=== PATIENT | female | born 1940 | race Caucasian/White ===

== ENCOUNTER → 2016-11-11 | Outpatient (CLI) | payer OTHER, MEDICARE | LOC: FIMAGING 11:51 | PROVIDERS: ATTEND Physician Assistant | DX: M51.34 Other intervertebral disc degeneration, thoracic region (principal); S23.120A Subluxation of T2/T3 thoracic vertebra, initial encounter; Z98.1 Arthrodesis status ==

== ENCOUNTER 2017-06-10 10:43 | Inpatient (IN) | payer OTHER, MEDICARE ==
--- NOTE | 2017-06-10 12:28 | EDPHY ---
H & P Time Seen by Provider: 06/10/17 12:11 HPI/ROS: CHIEF COMPLAINT: Left hip pain HISTORY OF PRESENT ILLNESS: The patient is a 76-year-old female with a history of joint disease who presents emergency department with left hip pain. Patient states she has had her right hip replaced twice. She has had numerous neck and back spinal surgeries. She states that yesterday she noticed some discomfort when she was ambulating in her left hip. This morning when she had a for bed she tried to stand using her walker and felt as though "too bones were rubbing on each other. "She complains of left hip pain with movement. It improves at rest. It is moderate. She denies any fevers or chills. No numbness or tingling. No recent trauma or fall. Patient denies any other symptoms. She has no current back pain. No chest pain or shortness of breath. No abdominal pain, nausea, vomiting. No dysuria or frequency. REVIEW OF SYSTEMS: My complete review of systems is negative except as mentioned in the HPI. Past Medical/Surgical History: Includes breast cancer Past surgical history: Includes right hip replacement x2, multiple neck and back surgeries, cranial shunt, lumpectomy, appendectomy, tonsillectomy Social history: Patient does not smoke Smoking Status: Never smoked Physical Exam: Vitals noted. 37.1, 171/86, 104, 18, 94% on room air GENERAL: Well-appearing, in no acute distress, alert. HEENT: Eyes normal to inspection, normal pharynx, no signs of dehydration. NECK: No thyromegaly, no lymphadenopathy, supple. RESPIRATORY: Clear to auscultation bilaterally, no rales, rhonchi or wheezing. CVS: Regular rate and rhythm, no rubs, murmurs, or gallops. ABDOMEN: Soft, nontender, nondistended, no organomegaly. BACK: Normal to inspection, no CVA tenderness. SKIN: Normal color, no rash, warm, dry. No pallor. EXTREMITIES: Patient's left hip appears normal. There is no deformity. She has mild tenderness to palpation over the left hip. No crepitus. Patient has range of motion of her left hip. No discomfort with passive movement. No redness or rash. Neurovascular intact distally. Her right lower extremity is normal. NEURO/PSYCH: Alert and oriented x3, normal mood and affect, normal motor sensory exam. No obvious cranial nerve deficit. Constitutional: Initial Vital Signs Temperature (C) 37.1 C 06/10/17 11:11 Heart Rate 104 H 06/10/17 11:11 Respiratory Rate 18 06/10/17 11:11 Blood Pressure 171/86 H 06/10/17 11:11 O2 Sat (%) 94 06/10/17 11:11 O2 Delivery Mode Room Air Allergies/Adverse Reactions: ibuprofen [Ibuprofen] Allergy (Intermediate, Verified 11/20/09 19:36) MILD SWELLING OF HANDS FEET FACE BEE STINGS Allergy (Severe, Uncoded 11/20/09 19:35) Anaphylaxis Home Medications: Medication Instructions Recorded Acetaminophen/Codeine 300/30Mg 1 each PO Q6 PRN 09/15/15 [Tylenol #3 (*)] Omeprazole/Clarith/Amoxicillin 1 each PO BID 09/15/15 [Omeclamox-Champ Combo Pack] Thyroid [[place] Thyroid 60 MG (*)] 60 mg PO DAILY10 09/15/15 Triazolam [TRIAZOLAM] 0.125 - 2.5 mg PO HS PRN 09/15/15 oxyCODONE CR [Oxycontin] 10 mg PO BID #20 tab 09/16/15 Medical Decision Making - Diagnostics Imaging Results: Imaging Impressions Hip X-Ray 06/10/17 12:29 Impression: 1. No acute fracture dislocation. 2. Severe left hip osteoarthritis with bone articulating with bone. ED Course/Re-evaluation: In the emergency department I discussed possible etiologies with the patient and answered all her questions. IV was placed. Patient was given normal saline 500 mL IV for dehydration. Basic laboratory studies were ordered. An x- ray of the left hip was ordered. The patient has a mildly elevated white count of 12. Patient's chemistry panel is notable for a slightly low sodium of 130. This is comparable with her previous values. Potassium is mildly low at 3.4. Patient's renal function is normal. UA negative. Hip x-ray: Degenerative disease. No fracture dislocation. I discussed the result with the patient. I answered all her questions. She states she has an outpatient MRI ordered by Dr. Patel. I recommended that she continue with the plan to have this MRI completed. She has a walker the emergency department. She ambulated prior to leaving. She will weight bear as tolerated. She was given warnings prior to leaving. Differential Diagnosis: My differential includes but is not limited to fracture, dislocation, septic joint, osteoarthritis, urinary tract infection, electrolyte abnormality, sugar abnormality, dehydration - Data Points Laboratory Results: Laboratory Results 06/10/17 12:46 06/10/17 12:46 06/10/17 06/10/17 06/10/17 13:20 12:46 12:46 WBC 12.29 10^3/uL H 10^3/uL (3.80-9.50) RBC 4.30 10^6/uL 10^6/uL (4.18-5.33) Hgb 12.6 g/dL g/dL (12.6-16.3) Hct 36.1 % L % (38.0-47.0) MCV 84.0 fL fL (81.5-99.8) MCH 29.3 pg pg (27.9-34.1) MCHC 34.9 g/dL g/dL (32.4-36.7) RDW 15.8 % H % (11.5-15.2) Plt Count 374 10^3/uL 10^3/uL (150-400) MPV 9.0 fL fL (8.7-11.7) Neut % (Auto) 77.0 % H % (39.3-74.2) Lymph % (Auto) 14.7 % L % (15.0-45.0) Whiteside % (Auto) 6.1 % % (4.5-13.0) Eos % (Auto) 1.5 % % (0.6-7.6) Baso % (Auto) 0.2 % L % (0.3-1.7) Nucleat RBC Rel Count 0.0 % % (0.0-0.2) Absolute Neuts (auto) 9.46 10^3/uL H 10^3/uL (1.70-6.50) Absolute Lymphs (auto) 1.81 10^3/uL 10^3/uL (1.00-3.00) Absolute Monos (auto) 0.75 10^3/uL 10^3/uL (0.30-0.80) Absolute Eos (auto) 0.18 10^3/uL 10^3/uL (0.03-0.40) Absolute Basos (auto) 0.03 10^3/uL 10^3/uL (0.02-0.10) Absolute Nucleated RBC 0.00 10^3/uL 10^3/uL (0-0.01) Immature Gran % 0.5 % % (0.0-1.1) Immature Gran # 0.06 10^3/uL 10^3/uL (0.00-0.10) Sodium 130 mEq/L L mEq/L (134-144) Potassium 3.4 mEq/L L mEq/L (3.5-5.2) Chloride 90 mEq/L L mEq/L (97-110) Carbon Dioxide 26 mEq/l mEq/l (22-31) Anion Gap 14 mEq/L mEq/L (8-16) BUN 11 mg/dL mg/dL (7-23) Creatinine 0.7 mg/dL mg/dL (0.6-1.0) Estimated GFR > 60 Glucose 103 mg/dL H mg/dL (70-100) Calcium 9.7 mg/dL mg/dL (8.5-10.4) Urine Color PALE YELLOW Urine Appearance CLEAR Urine pH 7.0 (5.0-7.5) Ur Specific [place] 1.005 (1.002-1.030) Urine Protein NEGATIVE (NEGATIVE) Urine Ketones TRACE H (NEGATIVE) Urine Blood NEGATIVE (NEGATIVE) Urine Nitrate NEGATIVE (NEGATIVE) Urine Bilirubin NEGATIVE (NEGATIVE) Urine Urobilinogen NEGATIVE EU EU (0.2-1.0) Ur Leukocyte Esterase NEGATIVE (NEGATIVE) Urine Glucose NEGATIVE (NEGATIVE) Medications Given: Discontinued Medications Sodium Chloride (Ns) 500 mls @ 0 mls/hr IV EDNOW ONE; Wide Open PRN Reason: Protocol Stop: 06/10/17 12:30 Last Admin: 06/10/17 12:47 Dose: 500 mls Oxycodone HCl (Oxycodone Ir) 10 mg PO EDNOW ONE Stop: 06/10/17 12:49 Last Admin: 06/10/17 12:57 Dose: 10 mg Potassium Chloride (Potassium Chloride Oral Liquid) 40 meq PO EDNOW ONE Stop: 06/10/17 13:48 Last Admin: 06/10/17 14:03 Dose: 40 meq Departure - Departure Disposition: Home, Routine, Self-Care Clinical Impression: Left hip pain, Hyponatremia Condition: Good Instructions: Hip Pain (ED) Additional Instructions: Your left hip x-ray showed a degenerated joint. I recommend that you continue with the plan to have an outpatient MRI. Use your walker and weight bear as tolerated. Return with worsening symptoms or concerns. Referrals: Brian Rod MD [Primary Care Provider] - As per Instructions Dre Holloway MD [Medical Doctor] - 5-7 days, call for appt. Vikash Cantu MD [Medical Doctor] - 5-7 days, call for appt.
[2017-06-10] MEDS ORDERED: NS 500 ML IV ONE (12:29)
[2017-06-10] MEDS ORDERED: oxyCODONE IR 5 MG TAB PO ONE (12:48)
[2017-06-10 12:58] LABS: % IMMATURE GRANULYOCYTES 0.5 % (0.0-1.1); ABSOLUTE IMMATURE GRANULOCYTES 0.06 10^3/uL (0.00-0.10); ADD DIFF? NO; ADD MORPH? NO; ADD SCAN? NO; ATYPICAL LYMPHOCYTE FLAG 0 (0-99); FRAGMENT RBC FLAG 10 (0-99); HEMATOCRIT 36.1 % (38.0-47.0); HEMOGLOBIN 12.6 g/dL (12.6-16.3); LEFT SHIFT FLG 0 (0-99); LIPEMIA HEMOLYSIS FLAG 90 (0-99); MEAN CELL HEMOGLOBIN 29.3 pg (27.9-34.1); MEAN CELL HEMOGLOBIN CONCENTR. 34.9 g/dL (32.4-36.7); PLATELET CLUMPS FLAG 0 (0-99); PLATELET COUNT 374 10^3/uL (150-400); RED CELL DISTRIBUTION WIDTH 15.8 % (11.5-15.2)
[2017-06-10 13:19] LABS: ANION GAP 14 mEq/L (8-16); CALCIUM 9.7 mg/dL (8.5-10.4); CARBON DIOXIDE 26 mEq/l (22-31); CHLORIDE 90 mEq/L (97-110); CREATININE 0.7 mg/dL (0.6-1.0); GLOMERULAR FILTRATION RATE > 60; GLUCOSE 103 mg/dL (70-100); POTASSIUM 3.4 mEq/L (3.5-5.2); SODIUM 130 mEq/L (134-144)
[2017-06-10 13:29] LABS: COLOR PALE YELLOW; LEUKOCYTE ESTERASE,URINE NEGATIVE (NEGATIVE); NITRITE,URINE NEGATIVE (NEGATIVE)
[2017-06-10] MEDS ORDERED: POTASSIUM CL 20 MEQ/15 ML UDCUP PO ONE (13:47)
[2017-06-10] MEDS ORDERED: POTASSIUM CL 20 MEQ TAB ONE (13:59)
[2017-06-10] MEDS ORDERED: ONDANSETRON DISINTEGRATING 4 MG TAB PO PRN (15:52)
[2017-06-10] MEDS ORDERED: ACETAMINOPHEN 325 MG TAB PO PRN (15:52)
[2017-06-10] MEDS ORDERED: ONDANSETRON 4 MG/2 ML VIAL IVP PRN (15:52)
[2017-06-10] MEDS ORDERED: NS W/ 20 KCl/L 1,000 ML IV SCH (16:00)
[2017-06-10] MEDS ORDERED: DIAZEPAM 5 MG TAB ONE (16:21)
[2017-06-10] MEDS ORDERED: DIAZEPAM 5 MG TAB PO ONE (16:22)
[2017-06-10] MEDS ORDERED: hydrALAZINE 25 MG TAB PO PRN (16:23)
--- NOTE | 2017-06-10 16:28 | ASMTCASEMG ---
Living Arrangements What is your living Answers: With Spouse arrangement? Who do you live with? Type Of Residence What kind of residence do Answers: House you live in? Type of Residence Facility Name Notes: Patient lives with her Raffi in a ranch home. There are two steps into the garage only. Patient and her board up to 50 horses on their property and have a lot of friend and family support Stairs in Home Answers: No Environment Case Management Evaluation Functional: Able to Answers: Yes Notes: provided pain and return Home with Prior mobility are improved Level of Function/Care after surgery Functional: ADL / IADL Answers: Mobility Issues Performance Deficits Due to: Discharge Plan Comments Coordination Status Comments Notes: I met with patient and her Raffi in the ER. Patient has had many surgeries involving her hips and spine. She would like to return home after surgery with HH care if she is able. She is open to SNF if needed and understands the process for evaluation of HH vs SNF post op. I have provided patient with a senior resource book to explore potential options to consider CM to follow with D/C planning Date Signed: 06/10/2017 04:27 PM Electronically Signed By:Elizabeth Gomez RN
--- NOTE | 2017-06-10 17:06 | GHP ---
[f rep st] HISTORY AND PHYSICAL DATE OF ADMISSION: 06/10/2017 CHIEF COMPLAINT: Hip pain. HISTORY OF PRESENT ILLNESS: The patient is a 76-year-old female with a history of multiple neck and back surgeries, as well as right hip replacement x2, who presents to the emergency department with left hip pain. She has had increasing pain over several months, though today her pain became so severe she was unable to walk. She states she has had a prior right hip replacement, and has also had multiple neck and back surgeries. She is followed by Dr. Damaso Patel from the Neurosurgery service and they have evaluated her in the emergency department. She notes right footdrop, but her main concern is her severe left hip pain. When she tried to stand up today she felt like her bones were rubbing against each other. She has pain with any type of movement. She denies any neuropathic symptoms in her left lower extremity. She denies any numbness, tingling, or paresthesias. She has had no recent falls. She denies any fevers, chills, chest pain, shortness of breath. No focal back pain, abdominal pain, nausea, vomiting, or diarrhea. She has no change in her bowel or bladder habits. In the emergency department, she was evaluated by the Neurosurgery service who will consult Orthopedic service for consideration of a hip replacement. She is admitted to the hospital due to inability to ambulate, and for pain control. PAST MEDICAL HISTORY: 1. Breast cancer. 2. Chronic back pain. 3. Chronic continuous opioid dependence. 4. Multiple spinal surgeries, followed by Dr. Patel. 5. Right hip replacement x3. MEDICATIONS: Please see [id number] for complete outpatient medication list. ALLERGIES: Ibuprofen, she states gives her swelling. FAMILY HISTORY: Parents are . SOCIAL HISTORY: The patient is . Her is at the bedside. She has previously been independent with her activities of daily living, and able to reach max of 4. However, given her increasing hip pain, she has difficulty ambulating and uses a walker or a walking stick for assistance with long distances. She denies tobacco use. She reports occasional alcohol use. REVIEW OF SYSTEMS: A 10-point review of systems was performed and is negative except as per HPI. OBJECTIVE: VITAL SIGNS: Temperature is 36.6, blood pressure 165/90, heart rate 94, respiratory rate 18, she is 95% on room air. GENERAL: Patient is awake, alert, oriented, in no acute distress. HEENT: Head is atraumatic, normocephalic. Pupils equal, round, react to light. Extraocular muscles intact. Oropharynx is clear. Mucous membranes are moist. NECK: Supple. There is no JVD. HEART: Regular rate and rhythm without murmur. LUNGS: Clear to auscultation bilaterally. ABDOMEN: Soft, nondistended, nontender. Normoactive bowel sounds. EXTREMITIES: Without cyanosis, clubbing, or edema. She has severe pain with flexion of her left hip. There is no bruising or deformity noted. She is tender to palpation over the greater trochanter. NEUROLOGIC: Exam is grossly nonfocal. LABORATORY DATA: CBC reveals a white blood cell count of 12.3 with 77% neutrophils. Basic metabolic panel reveals sodium 130, potassium 3.4, chloride 90, bicarb 26, creatinine is normal at 0.7, glucose is 103. Urinalysis is negative. Hip x-ray performed in the emergency department shows no acute fracture, dislocation, however, severe left hip osteoarthritis with bone articulating on bone is seen. ASSESSMENT/PLAN: This is a 76-year-old female with a history of severe degenerative osteoarthritis of left hip, who was admitted to the hospital for pain control and orthopedic evaluation. 1. Severe degenerative osteoarthritis of the left hip. The patient is unable to ambulate. She will be admitted to the hospital for pain control. We will continue her outpatient pain medications including oxycodone and OxyContin. Schedule Tylenol 1000 mg q.8 hours. She denies neuropathic symptoms and declines a trial of gabapentin. Will provide intravenous Dilaudid at low doses as needed for breakthrough pain. The Orthopedic service was consulted by the Neurosurgery service and will see the patient in the morning. Physical Therapy/ Occupational Therapy evaluations are requested. 2. Hypothyroidism. Will continue her [place] Thyroid once her medication reconciliation is completed. 3. Elevated blood pressure. Reviewing her chart, she does not have a history of hypertension. I suspect this is related to pain control. Will provide p.r.n. hydralazine for sustained systolic blood pressures greater than 180. Otherwise, the focus will be controlling her pain. 4. Hyponatremia. Will send a urine sodium and urine osmolarity for further evaluation. This may be hypovolemic hyponatremia. Will start normal saline overnight and reassess in the morning. 5. Hypokalemia. Will replace with potassium in her intravenous fluids and recheck in the morning. 6. Leukocytosis. There is no evidence of infection. I suspect this may be a stress response. Will observe off antibiotics and recheck this in the morning. 7. Deep venous thrombosis prophylaxis. Patient is high risk, will start Lovenox. It does not sound like she will go to surgery tomorrow, but this may need to be held the following day if surgery is planned. 8. Code status. Patient is full code. DISPOSITION: The patient is admitted to inpatient status as required q PT, OT, and IV pain medications for pain control as well as Orthopedic surgery evaluation. /[id number]/MODL MTDD
[2017-06-10] MEDS: ACETAMINOPHEN 500 MG TAB PO SCH (19:40)
[2017-06-10] MEDS ORDERED: CETIRIZINE 10 MG TAB PO PRN (23:13)
[2017-06-11] MEDS: ACETAMINOPHEN 500 MG TAB PO SCH ×3 (00:44→16:24)
[2017-06-11] MEDS: HYDROCODONE/APAP 10/325 TAB PO PRN ×2 (00:45→08:15)
[2017-06-11] MEDS: CYCLOBENZAPRINE 10 MG TAB PO PRN ×3 (00:45→16:23)
--- NOTE | 2017-06-11 02:12 | GCON ---
[f rep st] CONSULTATION CONSULTATION HISTORY AND PHYSICAL CHIEF COMPLAINT: Left hip pain. Left hip weakness. HISTORY OF PRESENT ILLNESS: Karla is a 76-year-old female, who has a history of degenerative joint disease, including multiple cervical and lumbar spine surgeries. She is a patient known to [facility]. She has had prior surgery with Dr. Patel. I spoke with her on Thursday of this week, stating that she was having more difficulty with some left hip pain and some pain down in the thigh. For this reason, I had ordered new imaging, including an MRI of the lumbar and thoracic spine. Per her , she woke up today, she was unable to ambulate and has exquisite left-sided hip pain. Yesterday, she had some discomfort with ambulating with her left hip, but this a.m. it was much worse. She was seen in the emergency department and hip x-rays were obtained, which showed severe osteoarthritis of the left hip. She was unable ambulate. Her contacted our office for us to get involved to see if this was related to her spine. I did see the patient, as well as Dr. Patel in the emergency department in room 3. She has mainly pain in the left buttock/ left hip that increases with range of motion of the hip, itself. It improves with rest. She denies any other complaints, such as headache, neck pain, chest pain, shortness of breath. No abdominal complaints. No complaints. No loss of bowel or bladder control. No saddle numbness or pain. She denies any specific recent trauma, injury, or fall. She does have a history, as mentioned above, of chronic neck and back pain. REVIEW OF SYSTEMS: A complete review of systems noted in conjunction above. Ten points negative, except mentioned in HPI. PAST MEDICAL HISTORY: 1. Breast cancer. 2. Right hip replacement, with revision by orthopedic surgeon, Dr. Weiss initially, and then a followup revision by physician who has moved out of town. 3. Multiple neck and back surgeries. 4. Cranial shunt. 5. Lumpectomy. 6. Appendectomy. 7. Tonsillectomy. MEDICATIONS: Please see med rec form. ALLERGIES: Ibuprofen. Bee stings. SOCIAL HISTORY: The patient is . 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 Her is at her bedside. No risk factors for HIV or AIDS. IMMUNIZATIONS: Up to date. TRAVEL: No recent travel. Review of systems as noted above. PHYSICAL EXAMINATION: GENERAL: This is an awake, alert, oriented female in no acute distress. VITAL SIGNS: Most recent, blood pressure 165/90, with a MAP of 115, heart rate 94, respirations 18, oxygen saturation 95% on room air, temperature 36.6. HEENT: Head is normocephalic, atraumatic. Pupils are equal, round, and reactive to light. EOMIs intact. Full visual allen by confrontation. Ears are patent. Nose is patent. NECK: Soft and supple. No midline tenderness. Full range of motion in flexion , extension, lateral bending, and rotation. RESPIRATORY: Deferred. CARDIAC: Deferred. ABDOMEN: Soft, nontender. No peritoneal signs. GENITOURINARY: Deferred. RECTAL: Deferred. NEUROLOGIC: The patient is awake, alert, oriented to name, place, location, date, time, and situation. Memory is intact to immediate, past, and current events. Speech: No aphasia, dysarthria, dysphonia. Cranial nerves 2 through 12 grossly intact. Motor: The patient has 5/5 strength in bilateral upper extremities to include deltoids, biceps, triceps, brachioradialis, wrist flexors and extensors, intrinsic fingers. She does have 5/5 strength in the right iliopsoas, quadriceps, and hamstring. Left side is limited due to exquisite left hip pain with hip flexion, quadriceps, hamstrings are at 4/5 due to pain. She does have weakness bilaterally with dorsiflexion that is worse on the right c/w the left, which is known to us from prior exams. She is slightly weaker in the LLE. Sensation is grossly intact to light touch throughout all dermatome distributions upper and lower extremities. Negative straight leg raise. Reflexes of biceps, triceps, brachioradialis are 2+ bilaterally. Achilles bilaterally are 1+. Unable to test left patellar due to left hip pain. The right side is 2+. LABORATORY STUDIES: Labs 06/10/2017 at 12:46 shows a white count of 12.29, with an hemoglobin and hematocrit of 12.6 and 36.1, with a platelet count of 374. Chemistries on 06/10/2017, sodium 130, potassium 3.4, chloride 98, CO2 of 26, BUN 11, creatinine 0.7, and glucose 103. Urine showed trace ketones. DIAGNOSTIC STUDIES: X-ray of the hip with AP lateral view shows no acute fracture or dislocation. There is severe left hip osteoarthritis with bone on bone articulation and some erosion into the acetabulum, itself. IMPRESSION: 1. Inability to walk. 2. Exquisite left hip pain. 3. History of cervical and lumbar spine surgery. PLAN AND DISCUSSION: Karla is a 76-year-old female who is well known to our practice for having multiple cervical and lumbar spine surgeries. Her spoke with me on Thursday and we are going to order some outpatient imaging. She woke up this morning with inability to walk and exquisite left-sided hip pain. Her contacted our office. I became involved. I saw the patient in the emergency department, and with Dr. Chau's assistance we will get her admitted to Internal Medicine, and Orthopedics to consult on her as well. We will also order some new imaging of her thoracic and lumbar spine, including MRIs. She will need likely some sedation with Valium for this. We will continue to follow her. A call has been placed to Dr. Holloway from [facility] for Orthopedics to consult on her. The family requested [facility] as a consultation for her. All questions and concerns were answered. /[id number]/MODL MTDD
[2017-06-11 05:34] LABS: % IMMATURE GRANULYOCYTES 0.3 % (0.0-1.1); ABSOLUTE IMMATURE GRANULOCYTES 0.03 10^3/uL (0.00-0.10); ADD DIFF? NO; ADD MORPH? NO; ADD SCAN? NO; ATYPICAL LYMPHOCYTE FLAG 0 (0-99); FRAGMENT RBC FLAG 0 (0-99); HEMATOCRIT 33.5 % (38.0-47.0); HEMOGLOBIN 11.5 g/dL (12.6-16.3); LEFT SHIFT FLG 0 (0-99); LIPEMIA HEMOLYSIS FLAG 90 (0-99); MEAN CELL HEMOGLOBIN 29.6 pg (27.9-34.1); MEAN CELL HEMOGLOBIN CONCENTR. 34.3 g/dL (32.4-36.7); MEAN CELL VOLUME 86.3 fL (81.5-99.8); PLATELET CLUMPS FLAG 0 (0-99); PLATELET COUNT 307 10^3/uL (150-400); RED BLOOD CELL COUNT 3.88 10^6/uL (4.18-5.33)
[2017-06-11 05:40] LABS: ANION GAP 11 mEq/L (8-16); CALCIUM 8.8 mg/dL (8.5-10.4); CARBON DIOXIDE 28 mEq/l (22-31); CHLORIDE 92 mEq/L (97-110); CREATININE 0.7 mg/dL (0.6-1.0); GLOMERULAR FILTRATION RATE > 60; GLUCOSE 101 mg/dL (70-100); POTASSIUM 3.6 mEq/L (3.5-5.2); SODIUM 131 mEq/L (134-144)
--- NOTE | 2017-06-11 07:14 | NEUSURGPN ---
Assessment/Plan: Assessment: 76 yo female that is admitted to with left hip and lower back pain. 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 There is stenosis in the upper T spine as well -I will review the images with Dr Patel and develop a final plan -she has both hip and back pathology-we will see what Dr Fitch says regarding her hip issues as well -PT/OT as tolerated -call with any questions or concerns -take medications as directed -pt understands and agrees Subjective: Awake and alert. NAD. Eating/drinking and voiding. No f/c/n/v/d. Pt with continued left hip and lower back pain Objective: AAO x 3, PERRLA/EOMI no droop CN 2-12 grossly intact +lt touch 5/5 BUE 4/5 to left Q/H/IP due to pain, 4+/5 to left DF and PF 5/5 right IP/Q/H, 4-/5 to right PF, 3+/5 to right DF Neuro Check Frequency: per routine Urinary Catheter in Place: No - Physician Discussed Patient with Dr.: Jorge Patient Seen by : Jorge Neurosurgery Physical Exam - Vitals, I&O, Labs I and O 06/10/17 06/11/17 06/12/17 05:59 05:59 05:59 Intake Total 1700 750 Output Total 650 200 Balance 1050 550 Weight 68.039 kg Intake: Oral (ml) 1200 IV Infused (ml) 500 750 NS W/ 20 KCl/L 1,000 ml @ 750 125 mls/hr IV CONT JIMMY Rx#:[id number] Output: Urine (ml) 650 200 Bedside Commode 650 200 Other: Intake Quantity Yes Sufficient Number of Voids 2 Bedside Commode 1 1 Vital Signs Temp Pulse Resp BP Pulse Ox 36.5 C 76 16 146/70 H 95 06/11/17 03:36 06/11/17 03:36 06/11/17 03:36 06/11/17 03:36 06/11/17 03:36 Laboratory Results 06/11/17 04:35 06/11/17 04:35 ICD10 Worksheet Patient Problems: Problems Problem Status Onset Hyponatremia Acute Left hip pain Acute Altered mental status Acute Dizziness Acute
--- NOTE | 2017-06-11 09:52 | SOAPPROG ---
SOAP Progress Note Assessment/Plan: Assessment: Mrs. Gandhi was interviewed and examined today. Her was present. Please see my dictated consultation report. Plan: She needs a left total hip arthroplasty. I will make arrangements for that procedure in the next week or 2. Thank you for asking me to evaluate your patient. 06/11/17 09: Objective: Vital Signs Temp Pulse Resp BP Pulse Ox 36.5 C 80 16 134/73 H 92 06/11/17 08:00 06/11/17 08:00 06/11/17 08:00 06/11/17 08:00 06/11/17 08:00 Laboratory Results 06/11/17 04:35 06/11/17 04:35 06/10/17 06/11/17 06/12/17 05:59 05:59 05:59 Intake Total 1700 1100 Output Total 650 500 Balance 1050 600 ICD10 Worksheet Patient Problems: Problems Problem Status Onset Hyponatremia Acute Left hip pain Acute Altered mental status Acute Dizziness Acute
[2017-06-11] MEDS: ENOXAPARIN 40 MG/0.4 ML SYR SC SCH (09:59)
--- NOTE | 2017-06-11 10:37 | PDMN ---
Medical Necessity Medical necessity: Pt meets IP criteria per MD; est los >2 mn for eval/tx of severe degenerative osteoarthritis of L hip (pt unable to ambulate), HTN, hypokalemia, hyponatremia & leukocytosis; admit for IV pain control, IVF/ electrolyte replacement, PT/OT & Ortho consult; hx breast cancer; per H&P & order 06/10/17
[2017-06-11] MEDS: FLUTICASONE NASAL 120 SPRAYS/16 GM MDI EACHNARE SCH (11:04)
--- NOTE | 2017-06-11 11:21 | ASMTCMCOM ---
CM Note CM Note Notes: Chart reviewed. Patient to dc home independent. met with patient and family to review dc poc. Patient to f/u with Dr Fitch as she is in need of hip surgery. Reviewed potential rehab facilities with patient and encouraged family visits. CM available should needs arise. Date Signed: 06/11/2017 11:20 AM Electronically Signed By:Nelda Kunz RN
[2017-06-11] MEDS: HYDROmorphone HCL/NS/PF 0.4 MG/2 ML SYR IVP PRN ×2 (12:08→16:27)
--- NOTE | 2017-06-11 12:31 | GCON ---
[f rep st] CONSULTATION ORTHOPEDIC CONSULTATION. DATE OF CONSULTATION: 06/11/2017 PROBLEM: Left hip pain. HISTORY OF PRESENT ILLNESS: The patient is a 76-year-old woman admitted yesterday by Dr. Damaso Patel and [facility] for severe pain in her left hip. She has had multiple operations on her cervical spin e by Dr. Patel and multiple procedures on her lumbar spine also by Dr. Patel. She underwent a right total hip arthroplasty by Dr. Benito Cazares in 1999. She had a revision operatio n by Dr. Cazares for recurrent dislocation. The hip continued to dislocate and about [address] Charles العراقي in [place] did another revision operation. Since then, she has not had any problems. She has had progressive pain in her left hip for the last couple of years. She is complaining of hilario in pain. She has minimal radicular pain in her left leg. She has a significant footdrop on the righ t side which she states is related to her lumbar spine problems. She probably has a mild weakness of dorsiflexion on the left as well. EXAM: GENERAL: She is an alert, healthy-appearing woman. EXTREMITIES: Exam of her left hip shows fu ll hip extension, about 70 degrees of flexion. She has about 10 degrees of internal and external rot ation before she starts having pain. She has to move the hip very slowly because it is so painful. I reviewed films of her pelvis dated June 10, 2017. She has an uncemented femoral component on t he right side. She has a large revision acetabular component which has at least 3 fixation screws th rough the shell. It looks like there is a little asymmetrical wear of the polyethylene. Her left hi p is severely arthritic. She is [id number] and has eroded some bone on the superior femoral head. Her leg lengths looked equal. IMPRESSION: 1. Left hip advanced degenerative arthritis. 2. Status post right total hip arthroplasty with several revisions. 3. Status post multiple cervical and lumbar spine procedures. RECOMMENDATION: She is on chronic narcotics for her neck and lumbar spine problems. She recently tr ied meloxicam for her hip pain but it did not help much. She is going to need a total hip replacement. That surgery was discussed with her and her in cluding the risks, complications, expectations, and recovery time. She would like to go ahead with t hat as soon as possible. I will check with my schedule at the office to see if we can do that in the next week or 2. I will contact her to make arrangements for her surgery. Thank you for asking me to evaluate your patient sign. /[id number]/MODL
--- NOTE | 2017-06-11 14:36 | GDS ---
[f rep st] DISCHARGE SUMMARY Patient did not discharge due to pain and mobility issues. DISCHARGE DIAGNOSES: 1. Hip and back pain. 2. Osteoarthritis. 3. Spinal stenosis. 4. Hypothyroidism. 5. Hypertension. 6. Hyponatremia. 7. Leukocytosis. CONSULTATIONS: 1. Dr. Fitch of Orthopedics. 2. Dr. Patel of Neurosurgery. STUDIES AND PROCEDURES DONE: 1. Lumbar spine MRI. 2. Thoracic spine MRI. PHYSICAL EXAM: GENERAL: The patient is alert. VITAL SIGNS: Afebrile at 37.1 , pulse is 85, respiratory rate 16, blood pressure is 137/78, she is saturating 92% on room air. I have seen and evaluated the patient on the day of discharge. HOSPITAL COURSE: 1. The patient is a 76-year-old female, presented to the emergency room with complaints of hip and back pain. She was evaluated and diagnosed with left hip advanced degenerative arthritis. She did receive a consultation from Dr. Fitch of Orthopedics during this hospitalization. It is recommended that she have a total hip arthroplasty performed. This will be scheduled with Dr. Fitch sometime in the next few weeks. 2. Spinal stenosis. The patient has had multiple spinal interventions in the past. She did receive a consultation from Neurosurgery during this hospital course. It is felt that it is more appropriate for the patient to have her hip arthroplasty performed prior to any spine intervention. She will follow up with Dr. Patel after her hip surgical intervention. 3. Hypothyroidism. Her medications have been continued. 4. Hyponatremia. This is mild and asymptomatic. 5. Leukocytosis. No evidence of acute infection at this time. DISPOSITION: The patient will be discharged home independently with her family. I have discussed the patient's disposition with Dr. Fitch. She will, again, follow up with scheduled total hip arthroplasty per Dr. Fitch's recommendations. DISCHARGE MEDICATIONS: Please refer to EMR form. I have provided the patient a prescription for Dilaudid 2 mg p.o. I spent greater than 35 minutes in the care, coordination, and management of the patient's discharge. /[id number]/MODL MTDD
--- NOTE | 2017-06-11 16:00 | HOSPPROG ---
Hospitalist Progress Note Assessment/Plan: 76y female with c/o back pain. First encounter, chart reviewed. D/W RN. #Hip osteoarthritis needs DANA Appreciate Dr Fitch consult Plan for outpatient surgery in 1-2 weeks #Spinal stenosis appreciate NSG consult plan for surgical intervention in the future #Hx hypothyroid cont home meds #Elevated blood pressure stable #Pain cont pain meds #Hyponatremia stable #Hypokalemia replace #Leukocytosis stable #Dispo in am if pain controlled Subjective: Still having pain. at bedside. Objective: Vital Signs Temp Pulse Resp BP Pulse Ox 36.8 C 94 18 168/77 H 93 06/11/17 15:50 06/11/17 15:50 06/11/17 15:50 06/11/17 15:50 06/11/17 15:50 Laboratory Results 06/11/17 04:35 06/11/17 04:35 06/10/17 06/11/17 06/12/17 05:59 05:59 05:59 Intake Total 1700 1100 Output Total 650 500 Balance 1050 600 - Physical Exam Constitutional: no apparent distress, appears nourished, uncomfortable Eyes: PERRL, anicteric sclera, EOMI Ears, Nose, Mouth, Throat: moist mucous membranes, hearing normal, ears appear normal Cardiovascular: regular rate and rhythym, No tachycardia, No edema Respiratory: no respiratory distress, no rales or rhonchi, clear to auscultation Gastrointestinal: normoactive bowel sounds, No tenderness, No ascites Skin: warm, normal color, No erythema Musculoskeletal: no joint effusions, pain with ROM, generalized weakness Neurologic: AAOx3 Psychiatric: interacting appropriately, not anxious, not encephalopathic ICD10 Worksheet Patient Problems: Problems Problem Status Onset Dizziness Acute Altered mental status Acute Left hip pain Acute Hyponatremia Acute
[2017-06-11] MEDS: HYDROCODONE/APAP 5/325 TAB PO PRN ×2 (17:47→21:28)
[2017-06-12] MEDS: ACETAMINOPHEN 500 MG TAB PO SCH ×3 (01:18→15:24)
[2017-06-12 06:10] LABS: % IMMATURE GRANULYOCYTES 0.3 % (0.0-1.1); ABSOLUTE IMMATURE GRANULOCYTES 0.03 10^3/uL (0.00-0.10); ADD DIFF? NO; ADD MORPH? NO; ADD SCAN? NO; ATYPICAL LYMPHOCYTE FLAG 10 (0-99); FRAGMENT RBC FLAG 0 (0-99); HEMATOCRIT 36.4 % (38.0-47.0); HEMOGLOBIN 12.4 g/dL (12.6-16.3); LEFT SHIFT FLG 0 (0-99); LIPEMIA HEMOLYSIS FLAG 90 (0-99); MEAN CELL HEMOGLOBIN 29.2 pg (27.9-34.1); MEAN CELL HEMOGLOBIN CONCENTR. 34.1 g/dL (32.4-36.7); MEAN CELL VOLUME 85.6 fL (81.5-99.8); MEAN PLATELET VOLUME 8.7 fL (8.7-11.7); PLATELET CLUMPS FLAG 0 (0-99); PLATELET COUNT 310 10^3/uL (150-400); RED BLOOD CELL COUNT 4.25 10^6/uL (4.18-5.33); RED CELL DISTRIBUTION WIDTH 15.9 % (11.5-15.2)
[2017-06-12 06:26] LABS: ALANINE AMINOTRANSFERASE 37 IU/L (9-52); ALBUMIN 3.6 g/dL (3.5-5.0); ALKALINE PHOSPHATASE 99 IU/L (38-126); ANION GAP 12 mEq/L (8-16); ASPARTATE AMINOTRANSFERASE 27 IU/L (14-46); BILIRUBIN,TOTAL 0.4 mg/dL (0.1-1.4); CALCIUM 9.1 mg/dL (8.5-10.4); CARBON DIOXIDE 26 mEq/l (22-31); CHLORIDE 94 mEq/L (97-110); CREATININE 0.6 mg/dL (0.6-1.0); GLOMERULAR FILTRATION RATE > 60; GLUCOSE 103 mg/dL (70-100); MAGNESIUM 1.6 mg/dL (1.6-2.3); POTASSIUM 3.6 mEq/L (3.5-5.2); SODIUM 132 mEq/L (134-144); TOTAL PROTEIN 6.4 g/dL (6.3-8.2)
[2017-06-12] MEDS: HYDROmorphone HCL/NS/PF 0.4 MG/2 ML SYR IVP PRN ×2 (07:25→12:40)
--- NOTE | 2017-06-12 09:35 | NEUSURGPN ---
Assessment/Plan: Assessment: 76 yo female that is admitted to with left hip and lower back pain. Plan: -Severe left hip OA noted on xrays-Dr Fitch saw yesterday and will plan for left hip replacement in the next few weeks as out patient -MRI of the T and L spine reviewed that shows severe central stenosis above her fusion at L1/2 as well as severe left and mod->sv right FS. - -She will undergo hip surgery and then follow up with neurosurgery 3-4 weeks after to further eval her spinal stenosis -PT/OT as tolerated -RN and patient reported episode of confusion last night, patients pain medications were discontinued. She takes Oxycontin and [place] under the care of Dr Saldana as an out patient, patient concerned about pain control to go home. Will defer to Medicine to restart pain medications. -Neurosurgery will sign off, plan for patient to follow up 3-4 weeks following hip surgery. -Patient plan discussed with Dr Patel -Please call with any questions/concerns Subjective: Patient laying in bed with terrible left hip pain Objective: AAO x 3, PERRLA/EOMI CN 2-12 grossly intact +lt touch 5/5 BUE 4/5 to left Q/H/IP due to pain, 4+/5 to left DF and PF 5/5 right IP/Q/H, 4-/5 to right PF, 3+/5 to right DF Neuro Check Frequency: per routine Urinary Catheter in Place: No - Physician Discussed Patient with : Jorge Neurosurgery Physical Exam - Vitals, I&O, Labs I and O 06/11/17 06/12/17 06/13/17 05:59 05:59 05:59 Intake Total 1700 2100 150 Output Total 650 1000 Balance 1050 1100 150 Weight 68.039 kg Intake: Oral (ml) 1200 1350 150 IV Infused (ml) 500 750 NS W/ 20 KCl/L 1,000 ml @ 750 125 mls/hr IV CONT JIMMY Rx#:[id number] Output: Urine (ml) 650 1000 Bedside Commode 650 1000 Other: Intake Quantity Yes Yes Sufficient Number of Voids 2 Bedside Commode 1 1 Toilet 1 Vital Signs Temp Pulse Resp BP Pulse Ox 36.7 C 90 18 144/91 H 95 06/12/17 08:00 06/12/17 08:00 06/12/17 08:00 06/12/17 08:00 06/12/17 08:00 Laboratory Results 06/12/17 06:05 06/12/17 06:05 ICD10 Worksheet Patient Problems: Problems Problem Status Onset Hyponatremia Acute Left hip pain Acute Altered mental status Acute Dizziness Acute
[2017-06-12] MEDS: FLUTICASONE NASAL 120 SPRAYS/16 GM MDI EACHNARE SCH (09:50)
[2017-06-12] MEDS: ENOXAPARIN 40 MG/0.4 ML SYR SC SCH (09:51)
[2017-06-12] MEDS ORDERED: MAGNESIUM HYDROXIDE 30 ML UDCUP PO PRN (10:12)
[2017-06-12] MEDS ORDERED: BISACODYL 10 MG SUPP PR PRN (10:12)
[2017-06-12] MEDS ORDERED: LACTULOSE 20 GM/30 ML UDCUP PO PRN (10:12)
[2017-06-12] MEDS: HYDROCODONE/APAP 5/325 TAB PO PRN ×3 (10:14→21:36)
[2017-06-12] MEDS: POLYETHYLENE GLYCOL 3350 17 GM PKT PO PRN (10:54)
--- NOTE | 2017-06-12 11:29 | ASMTCMCOM ---
CM Note CM Note Notes: Discussed w/Hospitalist and RN. Pt will need HHC (PT/OT/IT INF[employer]CTURE [employer]SULTANT)since she will not be going to SNF. Met w/pt and husb to discuss. They would like to use [facility] and are also looking into private duty care. Pt's , Robert said they should be ok to dc today as they have people who can help but would like to have priv duty care in place by Thursday. We discussed private duty agencies; list given. [facility] is one they are interested in so I notified Marychuy at [facility] who will contact pt's . Aure Smith at [facility] who said they can accept pt. Robert had some financial/insurance questions so I notified financial and they will meet w/him prior to dc today. Date Signed: 06/12/2017 11:29 AM Electronically Signed By:Deirdre Patel RN
--- NOTE | 2017-06-12 12:28 | ASMTCMCOM ---
CM Note CM Note Notes: Change in dc plan of care: Pt now agreeable to going to SNF. AFter working w/PT today and pain issues and seeing Hospitalist pt and now agreeable to SNF, would like to go to [facility]. Referral faxed and notified Negin. Notified Josefina at [facility] to let them know change of plans. [facility]f. Date Signed: 06/12/2017 12:27 PM Electronically Signed By:Deirdre Patel RN
--- NOTE | 2017-06-12 13:57 | HOSPPROG ---
Hospitalist Progress Note Assessment/Plan: 76y female with c/o back pain. D/W RN. #Hip osteoarthritis needs DANA Appreciate Dr Fitch consult Plan for outpatient surgery in 1-2 weeks #Spinal stenosis appreciate NSG consult plan for surgical intervention in the future #Hx hypothyroid cont home meds #Elevated blood pressure stable #Pain cont pain meds #Hyponatremia stable #Hypokalemia replace #Leukocytosis stable #Dispo pt unable to safely DC home long discussion plan for DC to snf in am return for hip surgery when scheduled Subjective: Still having pain. Unable to get up on own. Objective: Vital Signs Temp Pulse Resp BP Pulse Ox 36.8 C 91 20 135/75 H 93 06/12/17 11:56 06/12/17 11:56 06/12/17 11:56 06/12/17 11:56 06/12/17 11:56 Laboratory Results 06/12/17 06:05 06/12/17 06:05 06/11/17 06/12/17 06/13/17 05:59 05:59 05:59 Intake Total 1700 2100 550 Output Total 650 1000 Balance 1050 1100 550 - Physical Exam Constitutional: chronically ill appearing, uncomfortable Eyes: PERRL, anicteric sclera Ears, Nose, Mouth, Throat: moist mucous membranes, hearing normal Cardiovascular: No JVD, No edema Respiratory: no respiratory distress, reduced air movement Gastrointestinal: No tenderness, No ascites Skin: warm, normal color Musculoskeletal: joint tenderness, pain with ROM, generalized weakness Neurologic: AAOx3 Psychiatric: not anxious, not encephalopathic, poor judgement ICD10 Worksheet Patient Problems: Problems Problem Status Onset Dizziness Acute Altered mental status Acute Left hip pain Acute Hyponatremia Acute
[2017-06-12] MEDS ORDERED: MELATONIN 3 MG TAB PO PRN (17:04)
[2017-06-12] MEDS: SENNOSIDES/DOCUSATE SODIUM TAB PO SCH (21:36)
[2017-06-12 23:41] VITALS: RESP 18
[2017-06-13] MEDS: HYDROCODONE/APAP 5/325 TAB PO PRN ×2 (06:14→10:56)
[2017-06-13 07:42] VITALS: BP 129/101; PULSE 90; TEMP 98.5; O2SAT 91
[2017-06-13] MEDS: POLYETHYLENE GLYCOL 3350 17 GM PKT PO PRN (08:18)
[2017-06-13] MEDS: ENOXAPARIN 40 MG/0.4 ML SYR SC SCH (08:19)
[2017-06-13] MEDS: SENNOSIDES/DOCUSATE SODIUM TAB PO SCH (08:19)
[2017-06-13] MEDS: FLUTICASONE NASAL 120 SPRAYS/16 GM MDI EACHNARE SCH (08:22)
--- NOTE | 2017-06-13 10:48 | HOSPPROG ---
Hospitalist Progress Note Assessment/Plan: 76y female with c/o back pain. D/W RN. #Hip osteoarthritis needs DANA Appreciate Dr Fitch consult Plan for outpatient surgery in 1-2 weeks #Spinal stenosis appreciate NSG consult plan for surgical intervention in the future #Hx hypothyroid cont home meds #Elevated blood pressure stable #Pain cont pain meds #Hyponatremia Resolved #Hypokalemia replace #Leukocytosis stable #Dispo Spoke with the patient and . They would like her to only go home. Also reviewed her care with case finisher who had spent time arranging for longterm facility. Because her surgery is in for a few weeks the patient and feel she would do better at her own home. Case management to discuss home care. When I spoke to the patient her they did not want that either. Subjective: Karla feels welll, no complaints. Objective: Vital Signs Temp Pulse Resp BP Pulse Ox 36.9 C 90 18 129/101 H 91 L 06/13/17 07:38 06/13/17 07:38 06/13/17 07:38 06/13/17 07:38 06/13/17 07:38 Laboratory Results 06/12/17 06:05 06/12/17 06:05 06/12/17 06/13/17 06/14/17 05:59 05:59 05:59 Intake Total 2100 850 Output Total 1000 Balance 1100 850 - Physical Exam Constitutional: no apparent distress, appears nourished, uncomfortable Eyes: PERRL Ears, Nose, Mouth, Throat: hearing normal Cardiovascular: regular rate and rhythym Respiratory: no respiratory distress Musculoskeletal: generalized weakness (due to left hip pain (has a walker at home)) Neurologic: AAOx3 Psychiatric: interacting appropriately, not anxious, not encephalopathic, thought process linear ICD10 Worksheet Patient Problems: Problems Problem Status Onset Hyponatremia Acute Left hip pain Acute Altered mental status Acute Dizziness Acute
--- NOTE | 2017-06-13 13:06 | ASMTCMCOM ---
CM Note CM Note Notes: DC plan changed today. Met w/pt and who said their daandreaeer from [place] is flying out to help care for her Mom at home until her surgeery in a couple weeks. Pt said she feels good with one person assist and just feels she needs to be home knowing that she will come back in 2 weeks for surgery and will likely need SNF at that time. She and say that in addition to daughter there are lot's of people around to help her [place] workers [place]. Pt is agreeable to [facility] and would like to use [facility]. LVM for OC RN w/MIKEL, Karen. Diuscussed at length with pt, , RN, and Marci Felix, hospitalist. Date Signed: 06/13/2017 01:05 PM Electronically Signed By:Deirdre Patel RN
--- NOTE | 2017-06-13 13:08 | PDIAF ---
- Diagnosis Code Status: Full Code - Medication Management Discharge Medications: Medications to Continue on Transfer Ascorbic Acid [Vitamin C 500 mg (*)] 500 mg PO DAILY 06/10/17 [Last Taken ] Cyclobenzaprine [Flexeril 10 MG (*)] 10 mg PO TID PRN 06/10/17 [Last Taken 06/09] Fexofenadine HCl [Trudy Allergy] 60 mg PO DAILY PRN 06/10/17 [Last Taken 06/10] Fluticasone Nasal [Flonase Nasal [place]] 2 sprays [place] DAILY 06/10/17 [Last Taken 06/10/17] Herbals/Supplements -Info Only 1 ea PO DAILY 06/10/17 [Last Taken 06/10/17] Meloxicam 15 mg PO DAILY 06/10/17 [Last Taken 3 Days Ago ~06/07/17] Acetaminophen [Tylenol ES 500 mg (*)] 1,000 mg PO Q8H tab 06/11/17 [Last Taken Unknown] Hydrocodone/APAP 5/325 [[place]ilo 5/325 (*)] 1 tab PO Q4HRS PRN #20 tab 06/13/17 [ Last Taken Unknown] Polyethylene Glycol 3350 [Miralax 17 gm (*)] 17 gm PO DAILY PRN pkt 06/13/17 [ Last Taken Unknown] Sennosides/Docusate Sodium [Senokot-S] 1 - 2 tab PO BID tab 06/13/17 [Last Taken Unknown] Discharge Medications: Refer to the Discharge Home Medication list for PRN reason. - Orders Services needed: Home Care, Physical Therapy, Occupational Therapy Home Care Face to Face: I certify that this patient was under my care and that I had the required [id number] encounter meeting the encounter requirements on the discharge day. My findings support the fact that the patient is homebound as defined in Home Care Face to Face Continued: CMS Chapter 7 Medicare Benefits Manual 30.1.1 , The condition of the patient is such that there exists a normal inability to leave home and consequently, leaving home would require a considerable and taxing effort. Diet Recommendation: no restrictions on diet Diet Texture: Regular Texture Diet Additional: take norco for pain, causes sedation and constipation. Take stool softener while on this. Do not drink or drive while on pain meds. - Follow Up Care Current Providers and Referrals: Brian Rod MD [Primary Care Provider] - Edu Fitch MD [Medical Doctor] -
--- NOTE | 2017-06-13 13:30 | GDS ---
[f rep st] DISCHARGE SUMMARY DISCHARGE DIAGNOSES: 1. Hip osteoarthritis. Will need a total hip arthroplasty. 2. Spinal stenosis. 3. Hypothyroidism. 4. Hypertension. 5. Pain due to the above. 6. Hyponatremia. 7. Hypokalemia. 8. Leukocytosis. CONSULTATIONS: 1. Ervin Hill PA-C. 2. Edu Fitch M.D. HISTORY: Briefly, the patient is a 76-year-old female with a history of multiple neck and back surgeries as well as right hip replacement x2. She presented to the emergency room with left hip pain. She had increasing pain over the last several months and it became so severe she was unable to walk. In addition she is followed by Dr. Damaso Patel with neurosurgery services who noted that she had a right footdrop, but her main concern was severe left hip pain. She was seen and evaluated by Dr. Fitch. The plan is for her to come back for scheduled surgery with him. In addition she will need further followup with Neurosurgery in the outpatient setting. During her stay, she had an MRI of the thoracic and lumbar spine that showed severe canal stenosis above her fusion at L1-2 as well as severe left moderate stenosis. She will follow up with Neurosurgery in the outpatient setting. HOSPITAL COURSE: 1. Hip osteoarthritis noted in the left hip. She will follow up with Dr. Fitch. She will get surgery in 1-2 weeks. Recommendation was for her to go to a jail facility. The and the patient would like to return home. Her daughter is going to be arriving to help her Mom in the home environment. 2. Spinal stenosis. Further follow up with Neurosurgery. She will likely get surgery with them in the future. 3. Hypothyroidism. Home medications have been continued. 4. Hypertension, stable. 5. Pain due to the above. She has had good pain relief with [place]. Will continue this. 6. Hyponatremia, resolved. 7. Hypokalemia. Treated with replacement protocol. 8. Leukocytosis, resolved. DISCHARGE CONDITION: Stable. Blood pressure is 129/101, heart rate is 90, respiratory rate is 18, O2 saturations on room air 91% to 95%. Temperature 36.9 Celsius. MEDICATIONS AT DISCHARGE: Please see the EMR. DISCHARGE INSTRUCTIONS: 1. To further follow up with Dr. Fitch as scheduled. 2. To avoid all of her other pain medications as prescribed and just take the [place]. Greater than 30 minutes discharging and coordinating patient's care. /[id number]/MODL MTDD
--- NOTE | 2017-06-13 14:48 | ASDISCHSUM ---
Discharge Information Plan Status:Home with Home Health Medically Cleared to Leave: Discharge Date:06/13/2017 01:06 PM D/C Disposition:Home Health Service [facility] D/C Disposition:Home, Routine, Self-Care Projected Discharge Date:06/13/2017 11:00 AM Transportation at D/C: Discharge Delay Reason: Follow-Up Date:06/13/2017 11:00 AM Discharge Slot: Final Diagnosis: Placement Information Referral Type:*Correction/SNF Referral ID:[id number] Provider Name:[facility] Address 1:[address] Address 2: City:[place] Selection Factors: State:[place] Referral Type:*Home Health Care Services Referral ID:[id number] Provider [facility] Address 1:[address] [address] Address 2: City:[place] Selection Factors: State:[place] Patient Contact Information Contact Name:MELL Relationship:Saji Address:[address] Work Phone: [place] Alternate Phone: State/Zip Code:[place] [address] Email: Financial Information Financial Class: Primary Plan Desc:MEDICARE INPATIENT Primary Plan Number:[id number] Secondary Plan Desc:EDUIN/ERENDIRA SUPPLEMENT Secondary Plan Number:[id number] Assessment Information LACE LACE Acuity / Level of Care Answers: Was the patient admitted to hospital via the emergency department? Yes: Emergency dept visits in Answers: 1 last 6 months Score: 4 Date Signed: 06/10/2017 04:19 PM Electronically Signed By:Elizabeth Gomez RN [facility] Initial CM Assessment Living Arrangements What is your living Answers: With Spouse arrangement? Who do you live with? Type Of Residence What kind of residence do Answers: House you live in? Type of Residence Facility Name Notes: Patient lives with her Raffi in a ranch home. There are two steps into the garage only. Patient and her board up to 50 horses on their property and have a lot of friend and family support Stairs in Home Answers: No Environment Case Management Evaluation Functional: Able to Answers: Yes Notes: provided pain and return Home with Prior mobility are improved Level of Function/Care after surgery Functional: ADL / IADL Answers: Mobility Issues Performance Deficits Due to: Discharge Plan Comments Coordination Status Comments Notes: I met with patient and her Raffi in the ER. Patient has had many surgeries involving her hips and spine. She would like to return home after surgery with HH care if she is able. She is open to SNF if needed and understands the process for evaluation of HH vs SNF post op. I have provided patient with a senior resource book to explore potential options to consider CM to follow with D/C planning Date Signed: 06/10/2017 04:27 PM Electronically Signed By:Elizabeth Gomez RN [facility] CM Progress Note CM Note CM Note Notes: Chart reviewed. Patient to dc home independent. met with patient and family to review dc poc. Patient to f/u with Dr Fitch as she is in need of hip surgery. Reviewed potential rehab facilities with patient and encouraged family visits. CM available should needs arise. Date Signed: 06/11/2017 11:20 AM Electronically Signed By:Nelda Kunz RN [facility] CM Progress Note CM Note CM Note Notes: Discussed w/Hospitalist and RN. Pt will need HHC (PT/OT/BIOLOGY INSTRUCTOR)since she will not be going to SNF. Met w/pt and husb to discuss. They would like to use [facility] and are also looking into private duty care. Pt's , Robert said they should be ok to dc today as they have people who can help but would like to have priv duty care in place by Thursday. We discussed private duty agencies; list given. Dignity is one they are interested in so I notified Marychuy at [facility] who will contact pt's . Notiifed Sarah at [facility] who said they can accept pt. Robert had some financial/insurance questions so I notified financial and they will meet w/him prior to dc today. Date Signed: 06/12/2017 11:29 AM Electronically Signed By:Deirdre Patel RN [facility] CM Progress Note CM Note CM Note Notes: Change in dc plan of care: Pt now agreeable to going to SNF. AFter working w/PT today and pain issues and seeing Hospitalist pt and now agreeable to SNF, would like to go to [facility]. Referral faxed and notified Negin. Notified Josefina at [facility] to let them know change of plans. [facility] w/f. Date Signed: 06/12/2017 12:27 PM Electronically Signed By:Deirdre Patel RN [facility] CM Progress Note CM Note CM Note Notes: DC plan changed today. Met w/pt and who said their cariner from [place] is flying out to help care for her Mom at home until her surgeery in a couple weeks. Pt said she feels good with one person assist and just feels she needs to be home knowing that she will come back in 2 weeks for surgery and will likely need SNF at that time. She and say that in addition to daughter there are lot's of people around to help her as they live on a horse property and have workers there. Pt is agreeable to [facility] and would like to use [facility]. LVM for OC JONATHON w/Karen MORIN. Diuscussed at length with pt, , RN, and Marci Felix, hospitalist. Date Signed: 06/13/2017 01:05 PM Electronically Signed By:Deirdre Patel RN Case Management Discharge Plan Note Case Management Discharge Discharge Order Complete? Answers: Yes Patient to Obtain Answers: via Family Medications Transportation Arranged Answers: Family/Friends Family Notified Answers: Yes Discharge Comments Notes: Pt dc'd home w/ and will have daughter staying w/her to help care for her. She will be followed by [facility]; rec'd call back from OC Karen HOLT w/MI[facility], who said they will be able to see her tomorrow. Confirmed address and discussed medicare homebound policy w/pt and Bill. Kendra olson/Shailesh RN and Hospitalist. Date Signed: 06/13/2017 02:43 PM Electronically Signed By:Deirdre Patel RN Intervention Information
== END 2017-06-13 13:06 | disposition home or self-care (01) | DRG 554 ==
LOC: EDUNIT# → F3N 18:16
PROVIDERS: ADMIT Hospitalist; ATTEND Hospitalist
DX: M16.12 Unilateral primary osteoarthritis, left hip (principal); M48.061 Spinal stenosis, lumbar region without neurogenic claudication; E87.1 Hypo-osmolality and hyponatremia; E87.6 Hypokalemia; G89.29 Other chronic pain; F11.20 Opioid dependence, uncomplicated; E03.9 Hypothyroidism, unspecified; Z98.1 Arthrodesis status; Z85.3 Personal history of malignant neoplasm of breast
CPT/HCPCS: 97116-GP; 97161-GP; 97166-GO; 97530-GP; 97535-GO; G8978-GP-CK; G8979-GP-CJ; G8987-GO-CJ; G8988-GO-CI; J1170; J1650

== ENCOUNTER 2017-06-14 12:47 | Emergency (ER) | payer OTHER, MEDICARE ==
[2017-06-14 12:59] VITALS: RESP 16
--- NOTE | 2017-06-14 13:30 | EDPHY ---
H & P Stated Complaint: l hip pain Time Seen by Provider: 06/14/17 13:20 HPI/ROS: CHIEF COMPLAINT: Left hip pain, unable to care for self HISTORY OF PRESENT ILLNESS: 36-year-old female discharged from the hospital yesterday for left hip osteoarthritis, scheduled to have a left hip arthroplasty by Dr. Fitch in 1-2 weeks, and had initial recommendation from staff to be discharged to rehabilitation facility which she declined. She returned home with her , returns back via ambulance stating that her unable to care for her, is unable to transfer her, they believe she needs a rehabilitation facility. Denies acute symptoms. No trauma no fall. No fever no chills. REVIEW OF SYSTEMS: A ten point review of systems was performed and is negative with the exception of the items mentioned in the HPI PAST MEDICAL & SURGICAL HISTORY: Left hip osteoarthritis. History of hypothyroidism hypertension . spinal stenosis. SOCIAL HISTORY: nonsmoker PHYSICAL EXAM (Prior to examination, patient consented to physical exam, hands were washed and my usual and customary physical exam procedures followed) 1) GENERAL: Well-developed, well-nourished, alert and oriented. Appears to be in no acute distress. 2) HEAD: Normocephalic, atraumatic 3) HEENT: Pupils equal, round, reactive to light bilaterally. Sclera anicteric. 4) NECK: Full range of motion, no meningeal signs. 5) LUNGS: Clear auscultation bilaterally, no wheezes, no rhonchi, no retractions. 6) HEART: Regular rate and rhythm, no murmur, no heave, no gallop. 7) ABDOMEN: No guarding, no rebound, no focal tenderness, negative McBurney's, negative Freeman's, negative Rovsing's, negative peritoneal sign, 8) MUSCULOSKELETAL: Left lower extremity: Equal length, bilateral DP PT pulses present and brisk normal color normal temperature. Reproducible left inguinal pain with axial loading of the acetabulum. 9) BACK: No CVA tenderness, no midline vertebral tenderness, no fluctuance, no step-off, no obvious trauma, no visual or palpable abnormality. 10) SKIN: No rash, no petechiae. 11) Psychiatric: Patient is oriented X 3, there is no agitation. DIFFERENTIAL DIAGNOSIS: in no particular include but limited to the unable to care for self, osteoarthritis, septic arthritis - Personal History Current Tetanus/Diphtheria Vaccine: Yes Tetanus Vaccine Date: 2013 - Medical/Surgical History Hx Asthma: No Hx Chronic Respiratory Disease: No Hx Diabetes: No Hx Cardiac Disease: No Hx Renal Disease: No Hx Cirrhosis: No Hx Alcoholism: No Hx HIV/AIDS: No Hx Splenectomy or Spleen Trauma: No Other PMH: neck fusion, rt hip replacement, back surg,back fusion, shunt removed from back spinal fluid leak, right breast cancer, R breast lumpectomy, thyroglossal cyst, appy, tonsilectomy - Social History Smoking Status: Never smoked Constitutional: Initial Vital Signs Temperature (C) 37.1 C 06/14/17 12:57 Heart Rate 93 06/14/17 12:57 Respiratory Rate 16 06/14/17 12:57 Blood Pressure 107/72 06/14/17 12:57 O2 Sat (%) 91 L 06/14/17 12:57 O2 Delivery Mode Room Air Allergies/Adverse Reactions: ibuprofen [Ibuprofen] Allergy (Intermediate, Verified 11/20/09 19:36) MILD SWELLING OF HANDS FEET FACE BEE STINGS Allergy (Severe, Uncoded 11/20/09 19:35) Anaphylaxis Home Medications: Medication Instructions Recorded Ascorbic Acid [Vitamin C 500 mg 500 mg PO DAILY 06/10/17 (*)] Cyclobenzaprine [Flexeril 10 MG 10 mg PO TID PRN 06/10/17 (*)] Fexofenadine HCl [Trudy Allergy] 60 mg PO DAILY PRN 06/10/17 Fluticasone Nasal [Flonase Nasal 2 sprays [place] DAILY 06/10/17 [place]] Herbals/Supplements -Info Only 1 ea PO DAILY 06/10/17 Meloxicam 15 mg PO DAILY 06/10/17 Acetaminophen [Tylenol ES 500 mg 1,000 mg PO Q8H tab 06/11/17 (*)] Hydrocodone/APAP 5/325 [[place] 1 tab PO Q4HRS PRN #20 tab 06/13/17 5/325 (*)] Polyethylene Glycol 3350 [Miralax 17 gm PO DAILY PRN pkt 06/13/17 17 gm (*)] Sennosides/Docusate Sodium 1 - 2 tab PO BID tab 06/13/17 [Senokot-S] Medical Decision Making ED Course/Re-evaluation: 1:30 p.m.: Old medical records reviewed. aquatic centre manager aware. ECare of patient under supervision of secondary supervising physician Dr Contreras . 2:07 p.m.: Informed by case folder that patient can be discharged directly to [facility]. Departure - Departure Disposition: Home, Routine, Self-Care Clinical Impression: Left hip pain Condition: Good Instructions: Hip Pain (ED) Referrals: Edu Fitch MD [Medical Doctor] - 5-7 days, call for appt.
--- NOTE | 2017-06-14 13:49 | ASMTCMCOM ---
CM Note CM Note Notes: Spoke with patient and , Raffi, at bedside. Patient presents to the ED with excruciating hip pain with any movement, inability to stand or move without 2 person max assist. Patient was discharged home from [facility] yesterday in hopes to manage with help of family, friends and HC (CM left message with RN yesterday); but HC has not been set up yet and family and friends are not able to provide adequate assistance as hoped. Patient had initially planned on discharging to [facility] and is now wanting to see if she can still go there. Patient has a planned hip replacement with Dr. Fitch on 06/23/17. This CM left a voice mail with [facility] admissions [phone]. Date Signed: 06/14/2017 01:49 PM Electronically Signed By:Annette Sams RN
[2017-06-14] MEDS ORDERED: HYDROCODONE/APAP 5/325 TAB PO ONE (15:41)
[2017-06-14 17:28] VITALS: BP 112/89; PULSE 88; TEMP 98.1; O2SAT 93
--- NOTE | 2017-06-14 18:57 | ASDISCHSUM ---
Discharge Information Plan Status:SNF Medically Cleared to Leave: Discharge Date:06/14/2017 05:25 PM D/C Disposition:Correction Facility ADT D/C Disposition:Home, Routine, Self-Care Projected Discharge Date:06/14/2017 02:00 PM Transportation at D/C:ALS/BLS Discharge Delay Reason: Follow-Up Date:06/14/2017 02:00 PM Discharge Slot: Final Diagnosis: Placement Information Referral Type:*Alf/SNF Referral ID:[id number] Provider Name:[facility] Address 1:[address] Address 2: City:[place] Selection Factors: State:[place] Patient Contact Information Contact Name:MELL Relationship: Address:[address] Work Phone: [facility]:[place] Alternate Phone: [facility]/Zip Code:[place] [address] Email: Financial Information Financial Class: Primary Plan Desc:MEDICARE OUTPATIENT Primary Plan Number:[id number] Secondary Plan Desc:AARP/MDR SUPPLEMENT Secondary Plan Number:[id number] Assessment Information [facility] CM Progress Note CM Note CM Note Notes: Spoke with patient and , Raffi, at bedside. Patient presents to the ED with excruciating hip pain with any movement, inability to stand or move without 2 person max assist. Patient was discharged home from [facility] yesterday in hopes to manage with help of family, friends and [facility] (CM left message with RN yesterday); but HC has not been set up yet and family and friends are not able to provide adequate assistance as hoped. Patient had initially planned on discharging to [facility] and is now wanting to see if she can still go there. Patient has a planned hip replacement with Dr. Fitch on 06/23/17. This CM [facility] [phone]. Date Signed: 06/14/2017 01:49 PM Electronically Signed By:Annette Sams RN Intervention Information
== END 2017-06-14 17:25 | disposition home or self-care (01) ==
LOC: EDUNIT#
DX: M25.552 Pain in left hip (principal); Z85.3 Personal history of malignant neoplasm of breast

== ENCOUNTER 2017-06-23 09:55 | Inpatient (IN) | payer OTHER, MEDICARE ==
--- NOTE | 2017-06-22 12:01 | GHP ---
[f rep st] PREOP HISTORY AND PHYSICAL DATE OF ADMISSION: 06/23/2017 She will be an a.m. admission for surgery at [facility] on Friday, June 23, 2017 . PROBLEM: Left hip severe degenerative arthritis. HISTORY OF PRESENT ILLNESS: The patient is a 76-year-old woman admitted for a left total hip arthrop lasty. She has had progressive pain in her left hip for the past couple of years. Recently, the carole n has been very severe. Several weeks ago she had to be hospitalized because of the severe left hip pain. She has a complex neurosurgical history. She has had a 4-level fusion on her cervical spine. She fuentes s had multiple procedures in her lumbar spine including fusion. These have all been done by Dr. Chidi kwok. Dr. Cazares did her right total hip arthroplasty quite a few years ago. She had recurrent dislocation and eventually Dr. Charles العراقي in [place] did revision surgery. She has not had any furthe r instability in her right hip. MEDICAL HISTORY: She has a history of breast cancer. She believes she is disease free. No history of heart disease, stents, DVT, hepatitis, sleep apnea or bleeding problems. CURRENT MEDICATIONS: She is using Percocet 10/325 every 4 hours for hip and back pain. She is also using OxyContin 3 times a day. She is on vitamin D, calcium, and vitamin B and C. DRUG ALLERGIES: Ibuprofen and bee stings. Ibuprofen causes facial swelling. Metal allergies: None . Latex allergy: None. SOCIAL HISTORY: The patient is . She does not smoke cigarettes and occasionally drinks alcoh ol. FAMILY HISTORY: Positive for arthritis, back problems, and osteoporosis. PHYSICAL EXAMINATION: GENERAL: She is an alert, elderly woman. She is in quite a bit of pain. She is sitting in a wheelchair. Height 5 feet 5 inches. Weight 155 pounds. BMI 25.8. HEENT: Eyes: Conjunctivae and sclerae are clear. Pupils are round and reactive. Mouth: Good oral hygiene. CHES T: Clear. HEART: Regular rhythm. No murmurs. EXTREMITIES: She has full hip extension and about 70 degrees of flexion. As she flexes the hip, she develops a 20-degree external rotation contracture and has no further internal or external rotation. IMPRESSION ON ADMISSION: 1. Left hip severe degenerative arthritis. 2. Status post right total hip arthroplasty with revision surgery. 3. Chronic cervical and lumbar spine problems, status post multiple neurosurgical procedures. 4. History of breast cancer. She will undergo a left total hip arthroplasty. The surgery has been described to her, including the risks, complications, expectations, and recovery time. I have discussed with her the risk of disloc ation, leg length inequality, infection, and sciatic nerve injury. She believes that she is a little bit short on the left side and she always uses a small lift in the left heel. I can lengthen her a short amount. She wants to go to a skilled rehab facility following discharge from the hospital. All of their ques tions have been answered and she consents to surgery. /[id number]/MODL
[~2017-06-23 09:55] MED LIST: ACETAMINOPHEN 325 MG TAB PO ONE; DEXAMETHASONE 4 MG/ML VIAL IVP ONE; FAMOTIDINE 20 MG TAB PO ONE; GABAPENTIN 300 MG CAP PO ONE; NS IV ONE; POVIDONE-IODINE 20 ML in SODIUM CL IRRIG SOLUTION 500 ML IRR ONE; ROPIVACAINE 0.2% 80 MG, EPINEPHrine 0.2 MG, KETOROLAC TROMETHAMINE 30 MG in SYRINGE 0 ML IU ONE; TRANEXAMIC ACID IV ONE; ceFAZolin 2 GM/SWFI 2 GM/20 ML SYR IVP ONE
[2017-06-23] MEDS ORDERED: FAMOTIDINE 20 MG TAB ONE (09:56)
[2017-06-23] MEDS ORDERED: DEXAMETHASONE 4 MG/ML VIAL ONE (09:56)
[2017-06-23] MEDS ORDERED: LIDOCAINE 1% 2 ML INJ ONE (09:56)
[2017-06-23] MEDS ORDERED: ceFAZolin 2 GM/SWFI 20 ML SYR IVP ONE (09:57)
[2017-06-23] MEDS ORDERED: ACETAMINOPHEN 325 MG TAB ONE (09:57)
[2017-06-23] MEDS ORDERED: GABAPENTIN 300 MG CAP ONE (09:57)
[2017-06-23] MEDS ORDERED: MIDAZOLAM 2 MG/2 ML VIAL IVP ONE (10:00)
[2017-06-23] MEDS ORDERED: MIDAZOLAM 2 MG/2 ML VIAL ONE (10:01)
[2017-06-23] MEDS ORDERED: PROPOFOL/EMULSION 500 MG/50 ML BOTTLE IV ONE (10:02)
[2017-06-23] MEDS ORDERED: fentaNYL 100 MCG/2 ML INJ ONE ×2 (10:08→13:01)
[2017-06-23] MEDS ORDERED: KETAMINE 100 MG/10 ML SYR ONE (11:11)
[2017-06-23] MEDS ORDERED: HYDROmorphONE/DILAUDID 2 MG/ML INJ ONE ×2 (11:15→11:43)
--- NOTE | 2017-06-23 11:28 | PDANEPAE ---
ANE History of Present Illness here for L DANA ANE Past Medical History - Cardiovascular History Hx Hypertension: Yes Hx Arrhythmias: No Hx Chest Pain: No Hx Coronary Artery / Peripheral Vascular Disease: No Hx CHF / Valvular Disease: No Hx Palpitations: No - Pulmonary History Hx COPD: No Hx Asthma/Reactive Airway Disease: No Hx Recent Upper Respiratory Infection: No Hx Oxygen in Use at Home: No Hx Sleep Apnea: No Sleep Apnea Screening Result - Last Documented: Negative - Neurologic History Hx Cerebrovascular Accident: No Hx Seizures: No Hx Dementia: No Neurologic History Comment: hx of spinal surgeries - Endocrine History Hx Diabetes: No Endocrine History Comment: hypothyroidism - Renal History Hx Renal Disorders: No - Liver History Hx Hepatic Disorders: No - Neurological & Psychiatric Hx Hx Neurological and Psychiatric Disorders: No - Cancer History Hx Cancer: Yes Cancer History Comment: right breast lumpectomy - Congenital Disorder History Hx Congenital Disorders: No - GI History Hx Gastrointestinal Disorders: No - Other Health History Other Health History: wears glasses - Chronic Pain History Chronic Pain: Yes (left hip and residual back pain) - Surgical History Prior Surgeries: 10/1992 neck fusion. 04/1994 back fusion. 10/1998 right DANA. 04/2002 right hip revision. 08/2002 right hip revision. 06/2005 right breast lumpectomy. 04/2007 neck surgery. 10/2009 back surgery with spinal leak. 10/2009 spinal leak repair. 12/2009 spinal leak repair. 12/2009 spinal leak repair with shunt placed. 07/12/2010 shunt removal. 08/2011 laminectomy. ANE Review of Systems Review of systems is: negative Review of Systems: - Exercise capacity Exercise capacity: <4 METS METS (RN): 3 METS ANE Patient History - Allergies Allergies/Adverse Reactions: ibuprofen [Ibuprofen] Allergy (Intermediate, Verified 06/22/17 11:41) MILD SWELLING OF HANDS FEET FACE tramadol Allergy (Verified 06/23/17 10:26) hallucinations BEE STINGS Allergy (Severe, Uncoded 06/22/17 11:41) Anaphylaxis - Home Medications Home medications: home medication list seen and reviewed Home Medications: Ascorbic Acid [Vitamin C 500 mg (*)] 500 mg PO DAILY 06/10/17 [Last Taken ] Cyclobenzaprine [Flexeril 10 MG (*)] 10 mg PO TID PRN 06/10/17 [Last Taken 06/23 08:30] Fexofenadine HCl [Trudy Allergy] 60 mg PO DAILY PRN 06/10/17 [Last Taken 06/18] Fluticasone Nasal [Flonase Nasal [place]] 2 sprays E[place]NARE DAILY 06/10/17 [Last Taken 06/23/17 07:00] Herbals/Supplements -Info Only 1 ea PO DAILY 06/10/17 [Last Taken 06/10/17] Meloxicam 15 mg PO DAILY 06/10/17 [Last Taken 3 Days Ago ~06/07/17] Bisacodyl [Dulcolax] 5 mg PO DAILY PRN 06/23/17 [Last Taken Unknown] oxyCODONE CR [OxyCONTIN] 20 mg PO TID 06/23/17 [Last Taken 06/22/17 14:00] - NPO status NPO Status: no food or drink >8 hours NPO Since - Liquids (Date): 06/22/17 NPO Since - Liquids (Time): 23:00 NPO Since - Solids (Date): 06/22/17 NPO Since - Solids (Time): 19:00 - Anes Hx Anes Hx: no prior problems - Smoking Hx Smoking Status: Never smoked - Family Anes Hx Family Hx Anesthesia Complications: none ANE Labs/Vital Signs - Vital Signs Blood Pressure: 136/104 Heart Rate: 105 Respiratory Rate: 18 O2 Sat (%): 94 Height: 165.1 cm Weight: 68.039 kg ANE Physical Exam - Airway Neck exam: FROM Mallampati Score: Class 1 - Pulmonary Pulmonary: no respiratory distress - Cardiovascular Cardiovascular: regular rate and rhythym - ASA Status ASA Status: III ANE Anesthesia Plan Anesthesia Plan: general endotracheal anesthesia Specialized Airway: video laryngoscope
[2017-06-23] MEDS ORDERED: SUGAMMADEX SODIUM 200 MG/2 ML VIAL IVP ONE (12:31)
[2017-06-23] MEDS ORDERED: ALBUTEROL 3 ML DEYVIAL IH PRN (12:43)
[2017-06-23] MEDS ORDERED: ONDANSETRON 4 MG/2 ML VIAL IVP PRN ×2 (12:43→12:52)
[2017-06-23] MEDS ORDERED: fentaNYL 100 MCG/2 ML INJ IVP PRN (12:43)
[2017-06-23] MEDS ORDERED: NALOXONE HCL 0.4 MG/ML INJ IVP PRN (12:43)
[2017-06-23] MEDS ORDERED: HYDROCODONE/APAP 5/325 TAB PO PRN (12:49)
--- NOTE | 2017-06-23 12:51 | POSTOPPROG ---
Post Op Note Date of Operation: 06/23/17 Surgeon: Edu Fitch Gear Finisher: Omar Ruiz/Abdelrahman Sorto Anesthesiologist: Dr. Ambrocio Ross Anesthesia: Epidural (Fa), GET(General Endotracheal) Post-op Diagnosis: Left hip severe degenerative arthritis Procedure: Left total hip arthroplasty Inf/Abcess present in the surg proc area at time of surgery?: No EBL: 100-500
[2017-06-23] MEDS ORDERED: DIPHENOXYLATE/ATROPINE LOMOTIL 1 TAB PO PRN (12:52)
[2017-06-23] MEDS ORDERED: POLYETHYLENE GLYCOL 3350 17 GM PKT PO PRN (12:52)
[2017-06-23] MEDS ORDERED: PROMETHAZINE HCL 25 MG SUPPR PR PRN (12:52)
[2017-06-23] MEDS ORDERED: MAGNESIUM HYDROXIDE 30 ML UDCUP PO PRN (12:52)
[2017-06-23] MEDS ORDERED: PROMETHAZINE HCL 25 MG/ML INJ IVP PRN (12:52)
[2017-06-23] MEDS ORDERED: ONDANSETRON DISINTEGRATING 4 MG TAB PO PRN (12:52)
[2017-06-23] MEDS ORDERED: BISACODYL 10 MG SUPP PR PRN (12:52)
[2017-06-23] MEDS ORDERED: LACTULOSE 20 GM/30 ML UDCUP PO PRN (12:52)
[2017-06-23] MEDS ORDERED: METOCLOPRAMIDE 10 MG/2 ML VIAL IVP PRN (12:52)
[2017-06-23] MEDS ORDERED: KETOROLAC 30 MG/1 ML SDV IVP PRN (12:52)
[2017-06-23] MEDS ORDERED: TEMAZEPAM 15 MG CAP PO PRN (12:52)
[2017-06-23] MEDS ORDERED: NS 500 ML IV PRN (12:52)
[2017-06-23] MEDS ORDERED: diphenhydrAMINE 25 MG CAP PO PRN (12:52)
[2017-06-23] MEDS ORDERED: LR 1,000 ML IV SCH (13:00)
[2017-06-23] MEDS ORDERED: HYDROmorphONE/DILAUDID 1 MG/ML INJ ONE (13:01)
[2017-06-23] MEDS: HYDROmorphONE/DILAUDID 1 MG/ML INJ IVP PRN ×2 (13:03→13:22)
[2017-06-23] MEDS ORDERED: CETIRIZINE 10 MG TAB PO PRN (13:25)
--- NOTE | 2017-06-23 13:45 | GOP ---
[f rep st] OPERATIVE REPORT DATE OF OPERATION: 06/23/2017 SURGEON: Edu Fitch MD SAND DRIER: Owen Ruiz PAC and Abdelrahman Sorto CFA ANESTHESIA: General by Ambrocio Ross MD PREOPERATIVE DIAGNOSIS: Left hip severe degenerative arthritis. POSTOPERATIVE DIAGNOSIS: Left hip severe degenerative arthritis. PROCEDURE PERFORMED: Left total hip arthroplasty, ceramic femoral head on highly cross-linked polyet hylene cup liner. FINDINGS: ESTIMATED BLOOD LOSS: About 400 mL. DESCRIPTION OF PROCEDURE: The patient was given 2 g of IV Ancef preoperatively within 60 minutes of surgery. She also received IV tranexamic acid at a dose of 20 mg/kg. She was placed on the operatin g room table and given general anesthesia by Dr. Ross. Once she was asleep, Dr. Ross was able to start a better peripheral IV. A Colon catheter was not used. She wore a JIMENA stocking and SCD on th e nonoperative leg. She was rolled to the right lateral decubitus position. The position was secure d with the pegboard table attachment. An axillary roll was used, and all pressure points were carefu lly padded. I was careful to lock her pelvis in a rigid vertical position. Her perineum was isolate d with plastic adhesive drapes. The left hip and left lower extremity were prepped with ChloraPrep. They were draped free using sterile sheets, stockinette, and Ioban plastic drape. The World Health Organization time-out was performed to verify the correct surgical side and site and the correct patient identity. The [place] time-out was also performed. I made a 5-inch straight oblique posterolateral hip skin incision. Subcutaneous tissues were sharply divided, and hemostasis was obtained using electrocautery. Her fascia kyle was identified and split proximally along the axis of its fibers. I then curved posteriorly and proximally, and split the fa scia of gluteus kristin and bluntly split the muscle fibers in line with their orientation. The Winnie jayneey self-retaining retractor was inserted. Her sciatic nerve was located, partially exposed, and pr otected throughout the procedure. The external rotators and the posterior hip capsule were divided a s separate layers at the base of the femoral neck, tagged, and reflected posteriorly. As I entered t he joint, there was spontaneous egress of grayish fair caseous pasty material which was extruded from the joint. A smooth 8-inch Steinmann pin was inserted vertically into the ilium, superior to the juan antonio tabulum. An 8-inch drill bit was inserted vertically into the greater trochanter and parallel to the first pin. The distance between the two was measured for leg length reference. Her femoral head wa s dislocated posteriorly. The femoral head was severely eroded. It looked like approximately 2/3rds of the femoral head had been eroded away. The deformed humeral head had secondarily eroded into the posterior superior aspect of the acetabulum. Although there was no indication of AVN on her preoper ative x-rays, this looked like it could of been avascular bone in the femoral head which had collapse d and eroded away. I was careful to preserve all the posterior capsule and most of the anterior capsule. The remnant of her damaged labrum was excised. I prepared the femur first. This allowed me to set up mechanic coating machines the amount of natural femoral neck anteversion. This, in turn, allowed me to later determine the correct amount of cup anteversion. She had approx imately 15 degrees of natural femoral neck anteversion. The canal was opened laterally with a box ch mikael. I reamed and hand broached sequentially up to size 6. The size 6 broach was used as a trial s tem. I was careful to lateralize adequately. Appropriate retractors were inserted to expose the acetabulum. The acetabulum was reamed sequentiall y up to 51 mm. I used some of the acetabular reamings plus I reamed some of the remainder of the fem oral head to created a slurry of bone graft. This bone graft was packed into the defect on the poste rior superior acetabulum. I selected a 52 mm Javier Tritanium cluster hole hemispherical shell. Th is was tapped securely into place in the proper degree of inclination and anteversion. I used the tr ansverse acetabular ligament and other acetabular bony landmarks to help me properly orient the cup. For additional shell fixation, I inserted a 30 mm and a 25 mm cancellous screw through the shell. I also inserted a screw in metal dome hole plug. I performed a series of trial reductions to determine length and stability. My clinical assessment d id not measure my measured leg length determination. I sterilely took a cross-table AP pelvis x-ray intraoperatively. This confirmed good position of the acetabular component, proper sizing of the fem oral component and the leg lengths were appropriate. I concluded that the size 6 stem with standard offset with a 0 neck length and a 32 mm head with a 10 degree lipped liner gave me the proper combina tion of appropriate length and good anterior and posterior stability. Even though she measured equal ly preoperatively, she stated that for many years her left leg has been shorter and she has been wear ing a quarter-inch lift in the left heel. The 10 degree lip [place] X3 highly cross-linked polyethylene liner was inserted and tapped securely into place. I then inserted press-fit the Javier Accolade II stem and a size 6 with standard offset . This was a very tight fit. I did one final trial reduction and confirmed that the 0 neck length w ith a 32 mm head was the proper combination. The [place] Biolox Delta ceramic head with a 0 neck cody gth and a 32 mm head was tapped securely onto the clean trunnion. The acetabulum was irrigated and c leaned, and the hip was reduced one final time. She had excellent anterior and posterior stability a nd appropriate length. Then, 40 mL of the joint anesthetic cocktail were injected into the capsule, the deep musculature, an d the subcutaneous tissues around the skin edges. The joint was thoroughly irrigated one final time with a dilute Betadine solution. Her sciatic nerve was reinspected and looked unharmed. The externa l rotators and the posterior hip capsule were repaired in separate layers with #2 FiberWire sutures t hrough drill holes in the greater trochanter. This provided a strong posterior capsular and external rotator repair. The fascia kyle was closed first with 2 interrupted etrnni-yr-mosah #2 FiberWire cardenas tures followed by a running #2 barbed Ethicon Stratafix PDO suture. The subcutaneous tissues were cl osed with a running 0 barbed Ethicon Stratafix Monoderm suture. The skin was closed with a running 3 -0 barbed Ethicon Stratafix Monoderm subcuticular suture. The skin edges were reapproximated and sea led with Dermabond glue. The wound was covered with a large Mepilex water proof sterile surgical case ssing. A long-leg JIMENA stocking and SCD were applied to the left lower extremity. She wore a stocking and SC D on the opposite leg during the procedure. An abduction pillow was placed between her knees. She w as awakened from anesthesia and rolled to the supine position on her [facility]. She was taken to PACU in satisfactory condition. There were no recognized intraoperative complications. COUNT: The sponge and needle count were correct on 2 occasions. COMPONENTS: I used a Javier Tritanium hemispherical cluster hole acetabular shell with an outside d iameter of 52 mm. This was fixed with a 25 mm and 30 mm supplemental fixation screw. The liner was a Javier X3, 10-degree highly cross-linked liner with an inside diameter of 32 mm. The femoral comp onent was a press-fit Accolade II standard offset stem in size 6. The femoral head was a Javier Bio lox Delta ceramic head with a 0 neck length and a 32 mm outside diameter. Omar Ruiz and Abdelrahman Sorto acted as surgical assistants. Their assistance was a medical necess ity. /[id number]/MODL
--- NOTE | 2017-06-23 14:11 | POSTANESTH ---
Post Anesthetic Evaluation Cardiovascular Status: Normal, Stable Respiratory Status: Normal, Stable Level of Consciousness/Mental Status: Mildly Sleepy, Arousable Pain Control: Inadeq, Add Tx Required Nausea/Vomiting Control: Adequate, Prn Tx Ordered Complications Possibly Related to Anesthesia: None Noted
[2017-06-23] MEDS: CYCLOBENZAPRINE 10 MG TAB PO PRN (14:22)
[2017-06-23] MEDS: oxyCODONE IR 5 MG TAB PO PRN (14:22)
[2017-06-23] MEDS: ceFAZolin 2 GM/DEXTROSE 100 ML IV SCH ×2 (14:54→21:29)
[2017-06-23] MEDS: ACETAMINOPHEN 325 MG TAB PO SCH ×2 (17:32→23:59)
[2017-06-23] MEDS: FAMOTIDINE 20 MG TAB PO SCH (21:28)
[2017-06-23] MEDS: ASPIRIN 325 MG TAB PO SCH (21:28)
[2017-06-23] MEDS: SENNOSIDES/DOCUSATE SODIUM TAB PO SCH (21:29)
[2017-06-24 04:53] LABS: HEMATOCRIT 33.7 % (38.0-47.0); HEMOGLOBIN 11.1 g/dL (12.6-16.3)
[2017-06-24] MEDS: ACETAMINOPHEN 325 MG TAB PO SCH ×2 (05:29→12:20)
[2017-06-24] MEDS: oxyCODONE IR 5 MG TAB PO PRN ×3 (05:29→12:20)
[2017-06-24 07:30] VITALS: RESP 16
[2017-06-24] MEDS ORDERED: FLUTICASONE NASAL 120 SPRAYS/16 GM MDI EACHNARE SCH (09:00)
[2017-06-24] MEDS ORDERED: FERROUS SULFATE 140 MG TAB.ER PO SCH (09:00)
[2017-06-24] MEDS: FAMOTIDINE 20 MG TAB PO SCH (09:28)
[2017-06-24] MEDS: SENNOSIDES/DOCUSATE SODIUM TAB PO SCH (09:28)
[2017-06-24] MEDS: ASPIRIN 325 MG TAB PO SCH (09:28)
--- NOTE | 2017-06-24 09:31 | ASMTCMCOM ---
CM Note CM Note Notes: Spoke with patient's Robert yesterday. Patient is POD #1 DANA and will require SNF rehab prior to discharge. Robert requested a referral to [facility]. Referral sent and received by [facility] - I anticipate they will accept patient. CM will faciliate discharge. Date Signed: 06/24/2017 09:30 AM Electronically Signed By:Luh Cazares RN
--- NOTE | 2017-06-24 09:49 | PDIAF ---
- Diagnosis Diagnosis: left hip OA Code Status: Full Code - Medication Management Discharge Medications: Medications to Continue on Transfer Ascorbic Acid [Vitamin C 500 mg (*)] 500 mg PO DAILY 06/10/17 [Last Taken ] Cyclobenzaprine [Flexeril 10 MG (*)] 10 mg PO TID PRN 06/10/17 [Last Taken 06/23 08:30] Fexofenadine HCl [Trudy Allergy] 60 mg PO DAILY PRN 06/10/17 [Last Taken 06/18] Fluticasone Nasal [Flonase Nasal [place]] 2 sprays EACHNARE DAILY 06/10/17 [Last Taken 06/23/17 07:00] Herbals/Supplements -Info Only 1 ea PO DAILY 06/10/17 [Last Taken 06/10/17] Hydrocodone/APAP 5/325 [[place] 5/325 (*)] 1 tab PO Q4HRS PRN #20 tab 06/13/17 [ Last Taken 06/23/17 08:30] Polyethylene Glycol 3350 [Miralax 17 gm (*)] 17 gm PO DAILY PRN pkt 06/13/17 [ Last Taken Unknown] Sennosides/Docusate Sodium [Senokot-S] 1 - 2 tab PO BID tab 06/13/17 [Last Taken 06/22/17 08:00] Bisacodyl [Dulcolax] 5 mg PO DAILY PRN 06/23/17 [Last Taken Unknown] oxyCODONE CR [Oxycontin] 20 mg PO TID 06/23/17 [Last Taken 06/22/17 14:00] Acetaminophen [Tylenol 325mg (*)] 650 mg PO Q6HRS tab 06/24/17 [Last Taken Unknown] Aspirin [Aspirin 325 mg (*)] 325 mg PO DAILY tab 06/24/17 [Last Taken Unknown] Ferrous Sulfate [Slow Fe 140 MG (*)] 140 mg PO DAILY tab.er 06/24/17 [Last Taken Unknown] Ondansetron Odt [Zofran Odt 4 mg (*)] 4 mg PO Q4HRS PRN tab 06/24/17 [Last Taken Unknown] celeCOXIB [Celebrex (*)] 200 mg PO DAILY cap 06/24/17 [Last Taken Unknown] oxyCODONE IR [Oxycodone Ir (*)] 5 - 10 mg PO Q3HRS PRN tab 06/24/17 [Last Taken Unknown] Discharge Medications: Refer to the Discharge Home Medication list for PRN reason. PICC Care - Routine: N/A - Orders Services needed: Physical Therapy Diet Recommendation: no restrictions on diet Diet Texture: Regular Texture Diet Harjit Stockings Discontinue Date: 1 week Wound Care Instructions: keep clean and dry. You may shower. Activity/Weight Bearing Restrictions: weight bearing as tolerated. - Follow Up Care Current Providers and Referrals: Brian Rod MD [Primary Care Provider] - Edu Fitch MD [Medical Doctor] - 07/17/17 10:15 am
--- NOTE | 2017-06-24 09:56 | SOAPPROG ---
SOAP Progress Note Assessment/Plan: Assessment: Afebrile. Awake and alert. Moderate pain. She can are detailed her hip pain is better than it was preoperatively. She has hypertension and elevated heart rate. I think this is most likely due to pain and anxiety. Her dressing is dry. Her sciatic nerve function is equal to what it was preoperatively. She has previous mild bilateral foot drops from prior lumbar spine surgery. Postop H&H are satisfactory. Postop films look excellent. Plan: Up with physical therapy today. Her IV infiltrated. It was very difficult to get an IV in her preoperatively. It is safe to discontinue the IV. Discharged later today to [facility]. 06/24/17 09:54 Objective: Vital Signs Temp Pulse Resp BP Pulse Ox 36.6 C 106 H 16 168/95 H 99 06/24/17 07:25 06/24/17 07:25 06/24/17 07:25 06/24/17 07:25 06/24/17 07:25 Laboratory Results 06/24/17 04:35 06/23/17 06/24/17 06/25/17 05:59 05:59 05:59 Intake Total 0 Output Total 900 Balance 1150 ICD10 Worksheet Patient Problems: Problems Problem Status Onset Altered mental status Acute Dizziness Acute Hyponatremia Acute Left hip pain Acute
[2017-06-24] MEDS: CYCLOBENZAPRINE 10 MG TAB PO PRN (11:10)
[2017-06-24 11:41] VITALS: BP 127/88; PULSE 97; TEMP 98.3; O2SAT 97
[2017-06-24] MEDS ORDERED: CEPHALEXIN 500 MG CAP PO SCH (12:00)
--- NOTE | 2017-06-24 13:07 | GDS ---
[f rep st] DISCHARGE SUMMARY ADMISSION DIAGNOSIS: Left hip severe degenerative arthritis. POSTOPERATIVE DIAGNOSIS: Left hip severe degenerative arthritis. OPERATION PERFORMED: 06/23/2017, a left total hip arthroplasty. POSTOPERATIVE COMPLICATIONS: None. CONDITION ON DISCHARGE: Improved. DESCRIPTION OF HOSPITAL COURSE: The patient was admitted to the hospital on the morning of surgery. Her admission hemoglobin and hematocrit were 12.4 and 36.4. Sodium 132, potassium 5.1, BUN 12, crea tinine 0.6. The same day, under general anesthesia, she underwent a left total hip arthroplasty. Postoperatively , she was treated with multimodal DVT prophylaxis, including aspirin. On the first postoperative day , her hemoglobin and hematocrit were 11.1 and 33.7. She experienced hypertension postoperatively. I thought this was due to anxiety and pain. No history of previous hypertension, and she is not on an y antihypertensive medications. She was seen by Physical Therapy and made satisfactory progress with ambulation. DISPOSITION: The patient is discharged to [facility]. She will continue aspirin 325 mg p.o. daily f or 21 days. She may progress to full weightbearing on the left as tolerated. Use an abduction angelito w in bed for 3 weeks. Use JIMENA stockings for 1 week. When she has stabilized and recovered from the surgery, she will follow up with Dr. Brian Rod regarding possible hypertension. I will see her back in the office on July 17, 2017. If there are any problems, she is to call me at the office. /[id number]/MODL
--- NOTE | 2017-06-24 15:13 | ASDISCHSUM ---
Discharge Information Plan Status:SNF Medically Cleared to Leave: Discharge Date:06/24/2017 03:08 PM CM D/C Disposition:Assisted Facility ADT D/C Disposition:Assisted Facility Projected Discharge Date:06/26/2017 11:00 AM Transportation at D/C:Wheelchair Van Discharge Delay Reason: Follow-Up Date:06/26/2017 11:00 AM Discharge Slot: Final Diagnosis: Placement Information Referral Type:*Fci/SNF Referral ID:[id number] Provider Name:[facility] Address 1:[address] Address 2: City:[place] Selection Factors: State:[place] Patient Contact Information Contact Name:MELL Relationship: Address:[address] Work Phone: [facility]:SWAN Alternate Phone: [facility]/Zip Code:[place] [address] Email: Financial Information Financial Class: Primary Plan Desc:MEDICARE INPATIENT Primary Plan Number:[id number] Secondary Plan Desc:[employer]/MDR SUPPLEMENT Secondary Plan Number:[id number] Assessment Information [facility] CM Progress Note CM Note CM Note Notes: Spoke with patient's Robert yesterday. Patient is POD #1 DANA and will require SNF rehab prior to discharge. Robert requested a referral to [facility]. Referral sent and received by [facility] - I anticipate they will accept patient. CM will faciliate discharge. Date Signed: 06/24/2017 09:30 AM Electronically Signed By:Luh Cazares RN Case Management Discharge Plan Note Case Management Discharge Discharge Order Complete? Answers: Yes Patient to Obtain Answers: Independently Medications Transportation Arranged Answers: Other Notes: Becka Garduno w/c reggie yanes er [facility] Transport will Pick (Date 06/24/2017 03:00 PM & Time) Faxed Final Orders Answers: Yes Family Notified Answers: Yes Discharge Comments Notes: Patient discharging to [facility]. Orders sent to and received by [facility]. They arranged transport at 1500 today with Becka Garduno. I called and informed patient's Bill who agrees to plan. JONATHON Bermeo will call report to [facility]. Date Signed: 06/24/2017 11:45 AM Electronically Signed By:Luh Cazares RN Intervention Information Intervention Type:*IM-Signed Date of Service:06/23/2017 03:47 PM Patient Type:Inpatient Staff Member:Sarah Merida Hours: Discipline: Severity: Comment:
== END 2017-06-24 15:08 | DRG 470 ==
LOC: F3N 09:55
PROVIDERS: ADMIT Orthopaedic Surgery; ATTEND Orthopaedic Surgery
PROC: 0SRB04Z Replacement of Left Hip Joint with Ceramic on Polyethylene Synthetic Substitute, Open Approach (ICD-10-PCS; principal; 2017-06-23 09:30)
DX: M16.12 Unilateral primary osteoarthritis, left hip (principal); Z98.1 Arthrodesis status; Z85.3 Personal history of malignant neoplasm of breast; Z96.641 Presence of right artificial hip joint
CPT/HCPCS: 97116-GP; 97163-GP; 97166-GO; 97530-GP; C1713; G8978-GP-CM; G8979-GP-CJ; G8987-GO-CL; G8988-GO-CJ; J0171; J0690; J1100; J1170; J1885; J2250; J2704; J2795; J3010

== ENCOUNTER → 2018-03-01 | Outpatient (CLI) | payer OTHER, MEDICARE ==
[~2018-03-01] MED LIST changes: -ACETAMINOPHEN 325 MG TAB PO ONE; -DEXAMETHASONE 4 MG/ML VIAL IVP ONE; -FAMOTIDINE 20 MG TAB PO ONE; -GABAPENTIN 300 MG CAP PO ONE; +GADOBUTROL 10 ML VIAL IVP ONE; +IOPAMIDOL (ISOVUE 370) 100 ML BTL IV ONE; -NS IV ONE; -POVIDONE-IODINE 20 ML in SODIUM CL IRRIG SOLUTION 500 ML IRR ONE; -ROPIVACAINE 0.2% 80 MG, EPINEPHrine 0.2 MG, KETOROLAC TROMETHAMINE 30 MG in SYRINGE 0 ML IU ONE; -TRANEXAMIC ACID IV ONE; -ceFAZolin 2 GM/SWFI 2 GM/20 ML SYR IVP ONE
== END ==
LOC: FIMAGING 10:39
PROVIDERS: ATTEND Psychiatry & Neurology Neurology
DX: R51 Headache (principal); R42 Dizziness and giddiness; I67.82 Cerebral ischemia; I69.898 Other sequelae of other cerebrovascular disease; G93.89 Other specified disorders of brain; G31.89 Other specified degenerative diseases of nervous system; I77.1 Stricture of artery
CPT/HCPCS: 70496; 70498; 70553; A9585; Q9967; 82565-PO

== ENCOUNTER 2018-03-04 13:16 | Emergency (ER) | payer OTHER, MEDICARE ==
[2018-03-04 13:31] VITALS: BP 178/90
--- NOTE | 2018-03-04 13:58 | EDPHY ---
H & P Time Seen by Provider: 03/04/18 13:34 HPI/ROS: HPI Legs and face swelling. Fluid overload. 77-year-old female by private vehicle with her friend. This patient recently had contrast enhanced CT imaging of her brain and neck as well as MR imaging on Thursday as directed by her neurosurgeon Dr. Damaso Patel as well as her neurologist Dr. Amezcua. She reports that since this time she has had a sensation of fluid overload. She has been on a diuretic, chlorthalidone, 50 mg daily in the past but has at her prescription for this medication run out. She called the office of Dr. Patel and Dr. Amezcua. Neither 1 of them could see her but Dr. Patel told her that she should be started on her diuretic again. She then called her primary care physician Dr. Truong regarding this and was told to come to the emergency department because she could not be seen today. She complains of lower extremity swelling and facial swelling and a tightness in the back of her neck which she has had for some time. She is now asking for a short prescription for chlorthalidone until she can get in to see her primary care physician. She plans on seeing her primary care physician tomorrow for ongoing care. ROS: Constitutional: No fever, no chills. As above. Respiratory: No cough. No shortness of breath. Cardiac: No chest pain, no palpitations. Gastrointestinal: No abdominal pain, no vomiting, no diarrhea. Genitourinary: No hematuria. No dysuria or increased frequency with urination. Musculoskeletal: No back pain. As above. Skin: No rashes. Neurological: No headache. No focal weakness or altered sensation. Past medical history: Neck and back fusion surgeries, right hip replacement, thyroglossal cyst, appendectomy, breast cancer, tonsillectomy. Social history: She is here with her friend. Nonsmoker. No alcohol. Physical Exam: General Appearance: Alert, no distress. This patient is responding to questions appropriately and in full sentences. This patient appears well- hydrated and well-nourished. Eyes: Pupils equal and round no pallor or injection. No lid edema, erythema or injection. Respiratory: There are no retractions, lungs are clear to auscultation with good air movement bilaterally. No tachypnea. Cardiovascular: Regular rate and rhythm. No murmur. Gastrointestinal: Abdomen is soft and nontender, no masses, bowel sounds normal. No focal tenderness at McBurney's point. No Freeman sign. Neurological: Motor sensory function is grossly intact. Cranial nerves are normal. Gait is normal. Skin: Warm and dry, no rashes. Musculoskeletal: Neck is supple and nontender. No significant pain on flexion of her neck. Extremities are symmetrical. With symmetrical lower extremity edema. Psychiatric: No agitation. No depression. Database: EKG: Imaging: Procedures: Emergency department course: Vital signs reviewed. She is moderately hypertensive. Vital signs are otherwise normal. She has a normal creatinine of 0.7 from March 01 of this year. After discussion with the patient and her friend, I agreed to give her a short prescription for chlorthalidone 50 mg daily. I verified that this is what she has been prescribed in the past. She will then follow up with her primary care physician tomorrow for re-evaluation and ongoing management. She was in agreement. 2:20 p.m., the patient was able to contact her primary care physician. She will see the physician technical administrative assistant for Dr. Truong tomorrow at 11:30 a.m.. She feels comfortable going home with her friend. Return to emergency department precautions were reviewed with her. All of her questions were answered. She was discharged in good condition. Differential Diagnosis: The differential diagnosis on this patient includes but is not limited to out of diuretic medication, need for prescription refill. Acute congestive heart failure exacerbation, pulmonary edema, acute coronary syndrome, pulmonary embolism unlikely. This represents a partial list of diagnoses considered. These considerations are based on history, physical exam, past history, reassessment and diagnostic testing. Smoking Status: Never smoked Constitutional: Initial Vital Signs Temperature (C) 36.6 C 03/04/18 13:25 Heart Rate 89 03/04/18 13:25 Respiratory Rate 16 03/04/18 13:25 Blood Pressure 178/90 H 03/04/18 13:25 O2 Sat (%) 93 03/04/18 13:25 O2 Delivery Mode Room Air Allergies/Adverse Reactions: ibuprofen [Ibuprofen] Allergy (Intermediate, Verified 03/04/18 13:34) MILD SWELLING OF HANDS FEET FACE Iodinated Contrast- Oral and IV Dye Allergy (Verified 03/04/18 13:34) tramadol Allergy (Verified 03/04/18 13:34) hallucinations BEE STINGS Allergy (Severe, Uncoded 03/04/18 13:34) Anaphylaxis Home Medications: Medication Instructions Recorded Ascorbic Acid [Vitamin C 500 mg 500 mg PO DAILY 06/10/17 (*)] Cyclobenzaprine [Flexeril 10 MG 10 mg PO TID PRN 06/10/17 (*)] Fluticasone Nasal [Flonase Nasal 2 sprays EACHNARE DAILY 06/10/17 [place]] Herbals/Supplements -Info Only 1 ea PO DAILY 06/10/17 oxyCODONE CR [Oxycontin] 20 mg PO TID 06/23/17 Acetaminophen [Tylenol 325mg (*)] 650 mg PO Q6HRS tab 06/24/17 Aspirin [Aspirin 325 mg (*)] 325 mg PO DAILY tab 06/24/17 oxyCODONE IR [Oxycodone Ir (*)] 5 - 10 mg PO Q3HRS PRN tab 06/24/17 Chlorthalidone [Chlorthalidone 25 50 mg PO DAILY #10 tab 03/04/18 mg (*)] Departure - Departure Disposition: Home, Routine, Self-Care Clinical Impression: Edema, Prescription refill Condition: Good Instructions: Edema (ED) Additional Instructions: Read and follow provided instructions. Follow-up with your primary care physician tomorrow at 11:30 a.m. as discussed for re-evaluation, refill of your diuretic prescription and ongoing care. Take medication as prescribed only. Return to the emergency department for worsening symptoms, shortness of breath, chest pain or other serious concerns. Referrals: Narcisa Avery PA [Primary Care Provider] - As per Instructions James Truong MD [Medical Doctor] - As per Instructions Prescriptions: Chlorthalidone [Chlorthalidone 25 mg (*)] 50 mg PO DAILY #10 tab
== END 2018-03-04 14:16 | disposition home or self-care (01) ==
LOC: CED 13:16
DX: R60.0 Localized edema (principal); E87.70 Fluid overload, unspecified

== ENCOUNTER → 2018-04-06 | Outpatient (CLI) | payer OTHER, MEDICARE | LOC: FIMAGING 12:59 | PROVIDERS: ATTEND Neurological Surgery | DX: M46.92 Unspecified inflammatory spondylopathy, cervical region (principal); M48.02 Spinal stenosis, cervical region; M89.8X8 Other specified disorders of bone, other site; G95.29 Other cord compression; M51.34 Other intervertebral disc degeneration, thoracic region; M48.04 Spinal stenosis, thoracic region; Z98.890 Other specified postprocedural states ==

== ENCOUNTER 2018-09-06 14:46 | Inpatient (IN) | payer OTHER, MEDICARE ==
--- NOTE | 2018-09-06 17:34 | EDPHY ---
H & P Stated Complaint: chronic back pain increasing pain numbness/fuentes Time Seen by Provider: 09/06/18 17:33 - Personal History Current Tetanus Diphtheria and Acellular Pertussis (TDAP): Yes Tetanus Vaccine Date: 2013 - Medical/Surgical History Hx Asthma: No Hx Chronic Respiratory Disease: No Hx Diabetes: No Hx Cardiac Disease: No Hx Renal Disease: No Hx Cirrhosis: No Hx Alcoholism: No Hx HIV/AIDS: No Hx Splenectomy or Spleen Trauma: No Other PMH: neck fusion, rt hip replacement, back surg,back fusion, shunt removed from back spinal fluid leak, right breast cancer, R breast lumpectomy, thyroglossal cyst, appy, tonsilectomy - Social History Smoking Status: Never smoked Constitutional: Initial Vital Signs Temperature (C) 36.7 C 09/06/18 15:42 Heart Rate 93 09/06/18 15:42 Respiratory Rate 18 09/06/18 15:42 Blood Pressure 119/65 09/06/18 15:42 O2 Sat (%) 95 09/06/18 15:42 O2 Delivery Mode Room Air Allergies/Adverse Reactions: ibuprofen [Ibuprofen] Allergy (Intermediate, Verified 09/06/18 15:41) MILD SWELLING OF HANDS FEET FACE Iodinated Contrast- Oral and IV Dye Allergy (Verified 09/06/18 15:41) tramadol Allergy (Verified 09/06/18 15:41) hallucinations BEE STINGS Allergy (Severe, Uncoded 03/04/18 13:34) Anaphylaxis Home Medications: Medication Instructions Recorded Ascorbic Acid [Vitamin C 500 mg 500 mg PO DAILY 06/10/17 (*)] Cyclobenzaprine [Flexeril 10 MG 10 mg PO TID PRN 06/10/17 (*)] Fluticasone Nasal [Flonase Nasal 2 sprays EACHNARE DAILY 06/10/17 [place]] Herbals/Supplements -Info Only 1 ea PO DAILY 06/10/17 Aspirin [Aspirin 325 mg (*)] 325 mg PO DAILY tab 06/24/17 Chlorthalidone [Chlorthalidone 25 50 mg PO DAILY #10 tab 03/04/18 mg (*)] Acetaminophen [Tylenol 325mg (*)] 650 mg PO Q6HRS PRN 09/06/18 Acetaminophen/ASA/Caffeine 1 each PO HS PRN 09/06/18 [Excedrin Tablet (*)] Bisacodyl [Dulcolax] 10 mg RC DAILY 09/06/18 DULoxetine [Cymbalta 30 MG (*)] 30 mg PO DAILY 09/06/18 oxyCODONE CR [Oxycontin] 30 mg PO DAILY@04,16 09/06/18 oxyCODONE/APAP 5/325 [Percocet 1 tab PO Q4H PRN 09/06/18 5/325 (*)] Medical Decision Making ED Course/Re-evaluation: CHIEF COMPLAINT: Back pain, leg pain, headache HISTORY OF PRESENT ILLNESS: The patient is a 77 y/o female with a history of cervical and lumbar spinal fusions complaining of back pain, leg pain, and a headache. This morning she woke up and "could hardly feel anything" in her legs. She reports that she then developed throbbing bilateral ankle pain and numbness. She then had one episode of vomiting and blurred vision. Her and youth corrections officer also report that the patient is antsy and can't sit still. No fever, body aches, chest pain, heart palpitations, shortness of breath, cough, abdominal pain, urinary or bowel complaints. She is followed by Dr. Patel, neurosurgeon REVIEW OF SYSTEMS: A comprehensive 10 system review of systems is otherwise negative aside from elements mentioned in the history of present illness and medical decision making. PHYSICAL EXAM: HR, BP, O2 Sat, RR. Temp noted General Appearance: Alert, well hydrated, appropriate, and non-toxic appearing. Head: Atraumatic without scalp tenderness or obvious injury Eyes: Pupils equal, round, reactive to light and accommodation, EOMI, no trauma , no injection. Ears: Clear bilaterally, no perforation, normal landmarks Nose: Atraumatic, no rhinorrhea, clear. Throat: There is no erythema or exudates, no lesions, normal tonsils, mucus membranes moist. Neck: Supple, 2+ carotid upstroke, nontender, no lymphadenopathy. Respiratory: No retractions, no distress, no wheezes, and no accessory muscle use. Lungs are clear to auscultation bilaterally. Cardiovascular: Regular rate and rhythm, no murmurs, rubs, or gallops. Bilateral carotid, radial, dorsalis pedis, and posterior tibial pulses intact. Good capillary refill all extremities. Gastrointestinal: Abdomen is soft, nontender, non-distended, no masses, no rebound, no guarding, no peritoneal signs. Musculoskeletal: Normal active ROM of all extremities, atraumatic. Neurological: Alert, appropriate, and interactive. The patient has normal DTRs and non-focal cranial nerves, motor, sensory, and cerebellar exam. Skin: No rashes, good turgor, no nodules on palpation. Past medical history: Right breast cancer with lumpectomy Past surgical history: Cervical and lumbar spine fusion, right hip replacement x 3, left hip replacement x 1, appendectomy, tonsillectomy Family history: Social history: and friend at bedside, retired, lives in [place] DIAGNOSTICS/PROCEDURES/CRITICAL CARE TIME: Not indicated. DIFFERENTIAL DIAGNOSIS: The differential diagnosis for the patient's neurologic symptoms included but was not limited to peripheral causes, central causes including CVA, TIA, electrolyte abnormalities and dehydration, cardiogenic causes, atypical causes like migraine syndrome. MEDICAL DECISION MAKING: The patient is a 77 y/o female with a history of cervical and lumbar spinal fusions presenting with back pain, leg pain, and a headache. The patent appears uncomfortable and is very squirrly in bed. Labs ordered; 1mg IV Ativan and 1mg IV Dilaudid administered. 1743: I consulted with Dr. Patel, neurosurgeon, regarding this patient. They do not want this patient re-imaged but are comfortable to admit this patient if she has uncontrollable pain. 1805: Patient's sodium is 116 and her potassium is 2.6; she will need to be admitted for this. Additional labs ordered. We will ensure that the patient does not receive any fluids. 1820: Reassessed patient and discussed laboratory findings. I have discussed plan for admission which the patient and her are comfortable with. 1817: I consulted with Dr. Marie, car racer, regarding this patient. She agrees to consult on this patient in the emergency department. 1823: I consulted with the hospitalist service, Dr. Merchant accepts admission of this patient. 1920: I consulted with Dr. Marie as she is in the emergency department now. 2011: Patient's labs reveal SIADH as her serum osmolality is significantly lower when compared to the urine osmolality. - Data Points Laboratory Results: Laboratory Results 09/06/18 18:00 09/06/18 09/06/18 18:01 18:00 POC Hgb 15.0 gm/dL gm/dL (12.6-16.3) POC Hct 44 % % (38-47) POC Sodium 116 mEq/L L* mEq/L (135-145) Sodium Pending POC Potassium 2.6 mEq/L L* mEq/L (3.3-5.0) Potassium Pending POC Chloride 76 mEq/L L mEq/L (97-110) Chloride Pending Carbon Dioxide Pending POC Total CO2 25 mEq/L mEq/L (22-31) Anion Gap 16 mEq/L H mEq/L (6-14) POC BUN 8 mg/dL mg/dL (7-23) BUN 11 mg/dL mg/dL (7-23) Creatinine 0.5 mg/dL L mg/dL (0.6-1.0) POC Creatinine 0.4 mg/dL L mg/dL (0.6-1.0) Estimated GFR > 60 Glucose 110 mg/dL H mg/dL (70-100) POC Glucose 117 mg/dL H mg/dL (70-100) Serum Osmolality 243 mosmo/kg L mosmo/kg (280-297) Calcium 9.4 mg/dL mg/dL (8.5-10.4) Phosphorus 3.1 mg/dL mg/dL (2.5-4.5) Albumin 4.3 g/dL g/dL (3.5-5.0) Medications Given: Potassium Chloride (Potassium Cl 10 Meq (Premix)) 100 mls @ 100 mls/hr IV Q1H JIMMY Stop: 09/06/18 23:29 Last Admin: 09/06/18 19:51 Dose: 100 mls Discontinued Medications Hydromorphone HCl (Dilaudid) 1 mg IVP EDNOW ONE Stop: 09/06/18 17:42 Last Admin: 09/06/18 17:58 Dose: 1 mg Lorazepam (Ativan Injection) 1 mg IVP EDNOW ONE Stop: 09/06/18 17:42 Last Admin: 09/06/18 17:59 Dose: 1 mg Lorazepam (Ativan Injection) 1 mg IVP EDNOW ONE Stop: 09/06/18 18:32 Last Admin: 09/06/18 18:34 Dose: 1 mg Point of Care Test Results: Chemistry 09/06/18 18:01 POC Sodium 116 mEq/L L* mEq/L (135-145) POC Potassium 2.6 mEq/L L* mEq/L (3.3-5.0) POC Chloride 76 mEq/L L mEq/L (97-110) POC Total CO2 25 mEq/L mEq/L (22-31) POC BUN 8 mg/dL mg/dL (7-23) POC Creatinine 0.4 mg/dL L mg/dL (0.6-1.0) POC Glucose 117 mg/dL H mg/dL (70-100) ISTAT H&H 09/06/18 18:01 POC Hgb 15.0 gm/dL gm/dL (12.6-16.3) POC Hct 44 % % (38-47) Departure - Departure Disposition: [facility] Acute Clinical Impression: Hyponatremia, Hypokalemia, SIADH (syndrome of inappropriate ADH production) Condition: Fair Report Scribed for: Hari Guerrier Report Scribed by: Isabella Hdz Date of Report: 09/06/18 Time of Report: 17:36
[2018-09-06] MEDS ORDERED: LORazepam 2 MG/ML INJ IVP ONE ×3 (17:41→20:34)
[2018-09-06] MEDS ORDERED: HYDROmorphONE/DILAUDID 2 MG/ML INJ IVP ONE (17:41)
[2018-09-06] MEDS ORDERED: ONDANSETRON 4 MG/2 ML VIAL IVP PRN (18:26)
[2018-09-06] MEDS ORDERED: ONDANSETRON DISINTEGRATING 4 MG TAB PO PRN (18:26)
[2018-09-06] MEDS ORDERED: ACETAMINOPHEN 325 MG TAB PO PRN (18:26)
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
[2018-09-06] MEDS ORDERED: POTASSIUM Cl (KCl) 10 MEQ/100 ML BAG IV ONE (19:43)
[2018-09-06] MEDS: POTASSIUM Cl (KCl) 100 ML IV SCH ×4 (19:51→23:17)
[2018-09-06] MEDS: SODIUM CHLORIDE 1,000 MG TAB PO SCH ×2 (21:06→23:55)
--- NOTE | 2018-09-06 21:08 | GHP ---
[f rep st] HISTORY AND PHYSICAL DATE OF ADMISSION: 09/06/2018 PRIMARY NEUROSURGEON: Dr. Patel. CHIEF COMPLAINT: Confusion, hyponatremia. HPI: A 77-year-old female with chronic pain due to cervical/lumbar spondylosis who has undergone several back surgeries. Over the past few weeks, she has complained of increased pressure in her head/neck and blurred vision. Over the past week, has had increased confusion, nausea, and vomiting. She has had decreased oral intake. No diarrhea. No reported fevers or cough. History is obtained from her medical record, and gas meter installer, who are at bedside. Also has a history of chronic subdural hematomas. Takes a diuretic. Baseline sodium is 127-130, but 116 today. REVIEW OF SYSTEMS: I completed a 10-point review of systems. Negative except as stated above. PAST MEDICAL HISTORY: History of cervical lumbar spondylosis; E coli UTI, chronic subdural hematomas in the past, status post LP shunt, now removed; history of breast cancer, status post lumpectomy and radiation; cognitive impairment (baseline is forgetful to day); right footdrop; hyperlipidemia. PAST SURGICAL HISTORY: Left DANA, right cataract, LP shunt for chronic subdural hematoma, L4-L5 fusion, L3 to L7 fusion, lumpectomy. SOCIAL HISTORY: She lives in [place] with her . 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 Occasional alcohol. No illicits or tobacco. FAMILY HISTORY: Noncontributory. HOME MEDICATIONS: Dulcolax, Percocet 5/325 q.4 hours p.r.n., Cymbalta, OxyContin 30 mg b.i.d., herbal supplements, Flonase, Flexeril 10 mg t.i.d. p.r.n., chlorthalidone 50 mg daily, aspirin 325 daily, ascorbic acid, Tylenol. ALLERGIES: Ibuprofen, iodine contrast, tramadol, bee stings. PHYSICAL EXAM: VITAL SIGNS: Temperature 36.7, blood pressure 140/99, heart rate in the 80s, respirations 22, 96% on room air. GENERAL: Ill appearing, uncomfortable in bed. HEENT: Small pupils but reactive. Dry mucous membranes. CV: Regular rate and rhythm. LUNGS: Clear anteriorly. ABDOMEN: No grimace with palpation. : No Colon. MUSCULOSKELETAL: She follows simple commands. Will move all extremities. NEURO: Normal sensation to touch. She is not able to participate in exam completely due to altered mental status. PSYCH: She is rambling. Does not answer questions appropriately. LABS: Sodium 116, potassium 2.6, chloride 76, creatinine 0.4, glucose 117, serum osmolality 243, calcium 9.4, albumin 4.3. Hemoglobin 15, hematocrit 44. Urine osmolality 439. . ASSESSMENT AND PLAN: 1. Hyponatremia: sodium 116, urine lytes consistent with SIADH that can be from opioids, pain, and chronic subdural hematomas. Chlorthalidone and decreased p.o. intake are likely contributing. Dr. Marie consulted. Check q.4- hour sodiums, 1 L fluid restriction, salt tabs t.i.d. 2. Hypokalemia: decreased p.o. intake. Replace now. 3. Acute metabolic encephalopathy: likely underlying cognitive impairment per exacerbated by hyponatremia, chronic pain medications. 4. Chronic pain: not safe to take orals at this time. Schedule BID IV opioid to prevent withdrawal. Equivalent dose of IV dilaudid with cross-tolerance is approx 3mg BID. (Will dose-reduce given AMS). Add Lidoderm patch. Bowel regimen when taking orals. 5. Cognitive impairment: cognition eval once mental status clears. 6. Acute on chronic neck pain: contact once acute illness resolved 7. Diet: N.p.o. for now. 8. Deep venous thrombosis prophylaxis. Lovenox. DISPOSITION: Patient warrants ICU admission given acute hyponatremia requiring serial labs, Renal consultation. /[id number]/MODL MTDD
[2018-09-06] MEDS ORDERED: LIDOCAINE 4%/MENTHOL 1% PATCH TD SCH (22:15)
[2018-09-07] MEDS ORDERED: POTASSIUM CL 20 MEQ/15 ML UDCUP PO ONE (01:30)
[2018-09-07] MEDS: HYDROmorphONE/DILAUDID 1 MG/ML INJ IVP SCH ×2 (02:35→14:36)
[2018-09-07] MEDS: HYDROmorphONE/DILAUDID 1 MG/ML INJ IVP PRN ×2 (04:08→10:33)
[2018-09-07] MEDS: SODIUM CHLORIDE 1,000 MG TAB PO SCH ×3 (07:17→17:24)
[2018-09-07] MEDS ORDERED: D5W 250 ML IV ONE (07:30)
[2018-09-07] MEDS ORDERED: LORazepam 0.5 MG TAB PO ONE (07:42)
--- NOTE | 2018-09-07 07:45 | PDMN ---
Medical Necessity Medical necessity: Pt meets IP criteria per MD & MCG MG-SIC Systemic or Infectious Condition; est los >2 mn for eval/tx of hyponatremia (Na 116, Jason 71 consistent with SIADH), hypokalemia, acute metabolic encephalopathy & chronic pain w/inability to safely take oral meds at this time; requiring close ICU monitoring, serial labs, NPO status, med management & Renal consult; hx chronic subdural hematomas; per H&P & order 09/06/18
[2018-09-07] MEDS ORDERED: Herbals/Supplements -Info Only PO SCH (09:00)
[2018-09-07] MEDS: FLUTICASONE NASAL 120 SPRAYS/16 GM MDI EACHNARE SCH (09:04)
[2018-09-07] MEDS: PATCH REMOVAL 1 EA PATCH TD SCH (09:04)
[2018-09-07] MEDS: ENOXAPARIN 40 MG/0.4 ML SYR SC SCH (09:04)
[2018-09-07] MEDS ORDERED: PROTOCOL POTASSIUM 1 DOSE MISC PRN ×2 (11:09→12:27)
[2018-09-07] MEDS: OXYCODONE/APAP 5/325 TAB PO PRN (11:30)
[2018-09-07] MEDS: DULoxetine 30 MG CAP PO SCH (11:32)
[2018-09-07] MEDS ORDERED: POTASSIUM CL 10 MEQ TAB PO ONE (12:29)
--- NOTE | 2018-09-07 12:32 | HOSPPROG ---
Hospitalist Progress Note Assessment/Plan: 1. Hyponatremia - Na 114 on admission, 120 this AM - Urine Na/Serum Osm consistent with SIADH, possibly 2/2 opoids, pain, chronic subdural hematoma, patient also on Chlorthalidone and with decreased PO Intake - Nephrology consulted in the ED, recommended 1L fluid restriction, salt tablets , gave 250 ml D5W this AM for Na 120, repeat 118, goal ~6meq in 24 hours - Will continue to monitor Na q 4hours 2. Hypokalemia - In setting of chlorthalidone, SIADH - Repleted overnight, ordered replacement protocol this AM 3. Acute Metabolic Encephalopathy - Likely underlying cognitive impairment exacerbated by hyponatremia and chronic pain meds 4. Chronic Pain - Will restart home pain medications this AM FEN: 1L Fluid restriction, Regular DVT PPx: SubQ Lovenox Code: FULL Dispo: Pending clinical course Subjective: Patient reports no complaints this AM Objective: Vital Signs Temp Pulse Resp BP Pulse Ox 36.8 C 100 24 H 158/88 H 95 09/07/18 00:15 09/07/18 08:00 09/07/18 08:00 09/07/18 08:00 09/07/18 08:00 Laboratory Results 09/07/18 09:55 09/06/18 09/07/18 09/08/18 05:59 05:59 05:59 Intake Total 500 Output Total 1300 Balance -800 - Physical Exam Constitutional: no apparent distress Eyes: PERRL Ears, Nose, Mouth, Throat: moist mucous membranes Cardiovascular: regular rate and rhythym Respiratory: no respiratory distress Gastrointestinal: soft, non-tender abdomen Genitourinary: no bladder fullness Skin: warm Musculoskeletal: full muscle strength Neurologic: AAOx3 Psychiatric: interacting appropriately ICD10 Worksheet Patient Problems: Problems Problem Status Onset Hypokalemia Acute Hyponatremia Acute SIADH (syndrome of inappropriate ADH production) Acute Altered mental status Acute Dizziness Acute Left hip pain Acute chronic disease mgmt/transitional care Acute
--- NOTE | 2018-09-07 13:39 | SOAPPROG ---
SOAP Progress Note Assessment/Plan: Assessment/Plan: 77 y/o F who presented with hypoosmolar hyponatremia likely 2/ 2 to SIADH on thiazide diuretic. -Na up to 120 this am -given bolus of D5, now 118 -awaiting new labs, Na q4h for now -goal today 122-124 by 7pm -fluid restrict to 1L, salt tabs tid -hold lasix for now -will need to d/c chlorthalidone indefinitely -replete lytes prn (K 3.1) -reordered urine studies to ensure not overdiuresis given low chloride and elevated bicarb (vomiting yesterday x 1) -check TSH, CXR, am cortisol -pain control per primary team, son requesting pain management and is concerned about his mother's opiate addiction -will continue to follow, please contact if ?'s, #[phone] 09/07/18 15:08 Subjective: Patient more alert today. Just states she is tired. Son and caregiver at bedside. Objective: Vital Signs Temp Pulse Resp BP Pulse Ox 36.8 C 87 16 150/74 H 93 09/07/18 00:15 09/07/18 12:00 09/07/18 12:00 09/07/18 12:00 09/07/18 12:00 Laboratory Results 09/07/18 09:55 09/06/18 09/07/18 09/08/18 05:59 05:59 05:59 Intake Total 500 Output Total 1300 Balance -800 Physical Exam - Physical Exam General Appearance: WD/WN, alert, no apparent distress EENT: PERRL/EOMI, normal ENT inspection Neck: non-tender, full range of motion, supple Respiratory: lungs clear, normal breath sounds Cardiac/Chest: normal peripheral pulses, regular rate, rhythm Abdomen: normal bowel sounds, non-tender, soft Skin: pallor Extremities: normal range of motion, non-tender Neuro/Psych: oriented x 3 ICD10 Worksheet Patient Problems: Problems Problem Status Onset Hypokalemia Acute Hyponatremia Acute SIADH (syndrome of inappropriate ADH production) Acute Altered mental status Acute Dizziness Acute Left hip pain Acute chronic disease mgmt/transitional care Acute
--- NOTE | 2018-09-07 14:44 | ASMTCMCOM ---
CM Note CM Note Notes: Pt is a 77 yo F who presents with hyponatremia and hypochloremia. Pt has history of chronic pain, history of multiple back surgeries. CM met with pt and her caregiver (Sophia [phone]) and pt. Sophia is a caregiver for pt 6 days per week. Pt's is also supportive. PT pending eval. OT rec: home independently. CM to follow. Plan: TBD Date Signed: 09/07/2018 02:44 PM Electronically Signed By:CJ Stone
[2018-09-07] MEDS: oxyCODONE CR 30 MG TAB PO SCH (15:41)
[2018-09-07] MEDS: LIDOCAINE 4%/MENTHOL 1% PATCH TD SCH (22:32)
[2018-09-08] MEDS: POTASSIUM Cl (KCl) 50 ML IV SCH ×6 (03:10→14:29)
[2018-09-08] MEDS: oxyCODONE CR 30 MG TAB PO SCH ×2 (04:08→16:42)
[2018-09-08] MEDS: HYDROmorphONE/DILAUDID 1 MG/ML INJ IVP SCH (04:08)
[2018-09-08] MEDS: SODIUM CHLORIDE 1,000 MG TAB PO SCH ×3 (07:58→18:00)
[2018-09-08] MEDS: ENOXAPARIN 40 MG/0.4 ML SYR SC SCH (08:00)
[2018-09-08] MEDS: DULoxetine 30 MG CAP PO SCH (08:00)
[2018-09-08] MEDS: ASPIRIN 325 MG TAB PO SCH (08:00)
[2018-09-08] MEDS ORDERED: DULoxetine 30 MG CAP PO SCH (09:00)
[2018-09-08] MEDS: FLUTICASONE NASAL 120 SPRAYS/16 GM MDI EACHNARE SCH (09:46)
[2018-09-08] MEDS: PATCH REMOVAL 1 EA PATCH TD SCH (10:04)
--- NOTE | 2018-09-08 10:14 | SOAPPROG ---
SOAP Progress Note Assessment/Plan: Assessment: Hyponatremia, starting to correct ?[id number] confusion better today per family chronic pain, may well have contributed to her low Na HTN, controlled Plan: nice conversation with patient and family about hyponatremia continue salt tabs as is continue every 6 hour Na checks continue fluid restriction Avoid HCTZ in the future 09/08/18 10:11 Subjective: had a good breakfast no sob nausea or vomiting has multiple chronic pain issues spirits good confusion better according to family, but is still confused remains in ICU Objective: Vital Signs Temp Pulse Resp BP Pulse Ox 36.9 C 75 16 100/65 88 L 09/08/18 05:58 09/08/18 07:20 09/08/18 07:20 09/08/18 07:20 09/08/18 09:18 Laboratory Results 09/08/18 06:15 09/07/18 09/08/18 09/09/18 05:59 05:59 05:59 Intake Total 500 600 Output Total 1300 2100 Balance -800 -1500 Physical Exam - Physical Exam General Appearance: alert Neck: normal inspection Respiratory: lungs clear, No rhonchi, No wheezing Cardiac/Chest: regular rate, rhythm, No friction rub Abdomen: normal bowel sounds, non-tender, soft Extremities: No swelling Neuro/Psych: alert, other (still some confusion) ICD10 Worksheet Patient Problems: Problems Problem Status Onset Hypokalemia Acute Hyponatremia Acute SIADH (syndrome of inappropriate ADH production) Acute Altered mental status Acute Dizziness Acute Left hip pain Acute chronic disease mgmt/transitional care Acute
[2018-09-08] MEDS: OXYCODONE/APAP 5/325 TAB PO PRN ×3 (13:13→22:59)
--- NOTE | 2018-09-08 13:29 | HOSPPROG ---
Hospitalist Progress Note Assessment/Plan: 1. Hyponatremia - Na 114 on admission, 122 this AM, repeat 123 at noon - Urine Na/Serum Osm consistent with SIADH, possibly 2/2 opoids, pain, chronic subdural hematoma, patient also on Chlorthalidone and with decreased PO Intake - Nephrology consulted, recommending 1L fluid restriction, salt tablets, gave 250 ml D5W on 09/07 in the AM, goal ~6meq in 24 hours (128 in 24 hours) - Will continue to monitor Na [id number] 2. Hypokalemia - In setting of chlorthalidone, SIADH - Replacement protocol in place 3. Acute Metabolic Encephalopathy- Improving - Likely underlying cognitive impairment exacerbated by hyponatremia and chronic pain meds 4. Chronic Pain - Restarted home pain medications including Oxycontin and Percocet - Caregiver requesting family meeting tomorrow to discuss care including pain management, patient follows with outpatient pain management, I asked about other medications she has tried in the past including (gabapentin, lyrics, NSAIDs, Tylenol) which she reports have been ineffective FEN: 1L Fluid restriction, Regular DVT PPx: SubQ Lovenox Code: FULL Dispo: Pending clinical course Subjective: Patient reports some back pain this AM Objective: Vital Signs Temp Pulse Resp BP Pulse Ox 36.8 C 79 12 135/60 H 95 09/08/18 10:00 09/08/18 12:00 09/08/18 12:00 09/08/18 12:00 09/08/18 12:00 Laboratory Results 09/08/18 11:45 09/07/18 09/08/18 09/09/18 05:59 05:59 05:59 Intake Total 500 600 Output Total 1300 2100 Balance -800 -1500 - Physical Exam Constitutional: no apparent distress Eyes: PERRL Ears, Nose, Mouth, Throat: moist mucous membranes Cardiovascular: regular rate and rhythym Respiratory: no respiratory distress Gastrointestinal: soft, non-tender abdomen Skin: warm Musculoskeletal: pain with ROM Neurologic: AAOx3 Psychiatric: interacting appropriately ICD10 Worksheet Patient Problems: Problems Problem Status Onset Hypokalemia Acute Hyponatremia Acute SIADH (syndrome of inappropriate ADH production) Acute Altered mental status Acute Dizziness Acute Left hip pain Acute chronic disease mgmt/transitional care Acute
--- NOTE | 2018-09-08 13:59 | ASMTCMCOM ---
CM Note CM Note Notes: A family meeting has been scheduled for 12:00 noon tomorrow in 2N conference room to discuss and coordinate goals of care for the patient. CM will follow. Date Signed: 09/08/2018 01:59 PM Electronically Signed By:Ruby Lux LCSW
[2018-09-08] MEDS: METHOCARBAMOL 750 MG TAB PO PRN (14:45)
[2018-09-08] MEDS ORDERED: PROTOCOL POTASSIUM 1 DOSE MISC PRN (17:49)
[2018-09-08] MEDS ORDERED: POTASSIUM CL 10 MEQ TAB PO ONE (19:54)
[2018-09-08] MEDS: LIDOCAINE 4%/MENTHOL 1% PATCH TD SCH (23:13)
[2018-09-09] MEDS: METHOCARBAMOL 750 MG TAB PO PRN ×4 (01:44→17:51)
[2018-09-09] MEDS: OXYCODONE/APAP 5/325 TAB PO PRN ×4 (02:25→17:51)
[2018-09-09] MEDS: oxyCODONE CR 30 MG TAB PO SCH ×2 (03:48→16:14)
[2018-09-09] MEDS ORDERED: POTASSIUM CL 10 MEQ TAB PO ONE ×2 (07:21→20:01)
[2018-09-09] MEDS: DULoxetine 30 MG CAP PO SCH (08:11)
[2018-09-09] MEDS: SODIUM CHLORIDE 1,000 MG TAB PO SCH ×3 (08:11→16:14)
[2018-09-09] MEDS: ASPIRIN 325 MG TAB PO SCH (08:11)
[2018-09-09] MEDS: ENOXAPARIN 40 MG/0.4 ML SYR SC SCH (08:16)
--- NOTE | 2018-09-09 09:50 | HOSPPROG ---
Hospitalist Progress Note Assessment/Plan: Patient presented to the ER with confusion and noted to have a Na of 114. First encounter, chart reviewed. Met with the patient and her family w Dr Chaney. *hyponatremia -Na on admit 114, now 125 -?SIADH vs use of diuretics -fluid restriction + salt tabs -possible chronic pain, opioids, hx of chronic subdural hematoma may have contributed * Hypokalemia - Replacement protocol in place *Acute Metabolic Encephalopathy- Improving - Likely underlying cognitive impairment exacerbated by hyponatremia and chronic pain meds * Chronic Pain on continuous chronic narcotics - Restarted home pain medications including OxyContin and Percocet -has tried other multiple treatments without relief, added gabapentin tid, trial of ibuprofen, ? increase Cymbalta dose, will ask pharmacy to see and help treat -will ask Integrative therapy to see her -sees Indira Saldana in the OP setting *constipation -bowel protocol *plan: kaye removal, trial of ibuprofen and gabapentin, pharmacy and Integrative therapy to see. Dr Chaney recommends not resuming diurectic therapy at ut, to f/u with Dr Wilmar Jacobs. Subjective: Todd is c/o ongoing neck and back pain. Objective: Vital Signs Temp Pulse Resp BP Pulse Ox 36.6 C 71 14 133/72 H 91 L 09/09/18 07:34 09/09/18 07:34 09/09/18 07:34 09/09/18 07:34 09/09/18 07:34 Laboratory Results 09/09/18 04:38 09/08/18 09/09/18 09/10/18 05:59 05:59 05:59 Intake Total 600 1700 Output Total 2100 1350 Balance -1500 350 - Physical Exam Constitutional: chronically ill appearing, uncomfortable, No not in pain Eyes: PERRL Ears, Nose, Mouth, Throat: hearing normal Cardiovascular: regular rate and rhythym Respiratory: no respiratory distress Gastrointestinal: normoactive bowel sounds Genitourinary: kaye in urethra Skin: warm Musculoskeletal: generalized weakness Neurologic: AAOx3 Psychiatric: interacting appropriately ICD10 Worksheet Patient Problems: Problems Problem Status Onset Hypokalemia Acute Hyponatremia Acute SIADH (syndrome of inappropriate ADH production) Acute Altered mental status Acute Dizziness Acute Left hip pain Acute chronic disease mgmt/transitional care Acute
[2018-09-09] MEDS: FLUTICASONE NASAL 120 SPRAYS/16 GM MDI EACHNARE SCH (09:54)
[2018-09-09] MEDS: PATCH REMOVAL 1 EA PATCH TD SCH (09:54)
--- NOTE | 2018-09-09 10:23 | ASMTCMCOM ---
CM Note CM Note Notes: Pts case discussed w/ Marci Viramontes NP. Pt is a transfer from the ICU. Pts sodium is still low. CM met w/ pt, pts Robert and caregiver Sophia with [facility]. Sophia is a private duty caregiver through of [facility]. Sophia is w/ pt 4 days a week for 8 hrs and the 5th day she is w/ pt for half a day. Robert and Sophia are not interested in a goals meeting. They are curious about managing sodium level and managing edema. Therapies are recommending HC. They have used [facility] in the past and would like to use them again. Sophia would be the preferred contact (P#: [phone]) and if unable to reach her Robert would be the second contact (P#: [phone]). Pt is not current w/ a PCP at this time. They would like a referral made to Lucero Jacobs. CM made an appointment for pt to see Dr. Jacobs. CM to follow. Plan: [facility]; PT, OT, RN [facility] [address], [place] [address] Dr. Lucero Jacobs 09/15/18 at 11:30AM Please check in by 11:15AM, and bring photo ID, insurance card, co pay, list of all meds, and d/c paperwork to the appointment. Date Signed: 09/09/2018 10:23 AM Electronically Signed By:CJ Osborne
--- NOTE | 2018-09-09 10:29 | SOAPPROG ---
SOAP Progress Note Assessment/Plan: Assessment: 1. Severe Hyponatremia Pt has corrected at appropriate rate. Reviewed issues with patient, , and caregiver. I believe she should be fine if maintained off of thiazide, and with a higher protein diet. I will check a TSH. Admission CXR looked ok. We will continue to let her correct on current 1000ml/day fluid restriction. 2. Edema Pt quite concerned about her LE edema, which was the reason for her thiazide. I would like her to stay off of diuretic for now. HTN can be treated with CCB or ACEI if needed. As an outpatient, a loop diuretic can be folded in at a lower time. 3. Pain Control She has a pain MD that will be involved. 2. Nutrition We discussed the need for better protein intake. Plan: 09/09/18 10:23 09/09/18 10:25 Subjective: Doing better Objective: Vital Signs Temp Pulse Resp BP Pulse Ox 36.6 C 71 14 133/72 H 91 L 09/09/18 07:34 09/09/18 07:34 09/09/18 07:34 09/09/18 07:34 09/09/18 07:34 Laboratory Results 09/09/18 04:38 09/08/18 09/09/18 09/10/18 05:59 05:59 05:59 Intake Total 600 1700 Output Total 2100 1350 Balance -1500 350 Physical Exam - Physical Exam General Appearance: no apparent distress, mild distress Respiratory: lungs clear Cardiac/Chest: regular rate, rhythm Extremities: pedal edema (trace) ICD10 Worksheet Patient Problems: Problems Problem Status Onset Hypokalemia Acute Hyponatremia Acute SIADH (syndrome of inappropriate ADH production) Acute Altered mental status Acute Dizziness Acute Left hip pain Acute chronic disease mgmt/transitional care Acute
[2018-09-09] MEDS ORDERED: IBUPROFEN 200 MG TAB PO PRN (10:32)
[2018-09-09] MEDS ORDERED: BISACODYL 10 MG SUPP PR PRN (10:48)
[2018-09-09] MEDS ORDERED: MAGNESIUM HYDROXIDE 30 ML UDCUP PO PRN (10:48)
[2018-09-09] MEDS ORDERED: LACTULOSE 20 GM/30 ML UDCUP PO PRN (10:48)
[2018-09-09] MEDS: GABAPENTIN 100 MG CAP PO SCH ×3 (11:24→20:22)
[2018-09-09] MEDS: ACETAMINOPHEN 325 MG TAB PO SCH ×2 (11:50→20:17)
[2018-09-09] MEDS: POLYETHYLENE GLYCOL 3350 17 GM PKT PO SCH (11:58)
[2018-09-09] MEDS ORDERED: ACETAMINOPHEN 325 MG TAB PO SCH (12:00)
[2018-09-09] MEDS: ALTEPLASE 2 MG VIAL IVP PRN (12:38)
[2018-09-09] MEDS: LIDOCAINE 4%/MENTHOL 1% PATCH TD SCH (17:52)
[2018-09-09] MEDS: SENNOSIDES/DOCUSATE SODIUM TAB PO SCH (20:21)
[2018-09-10] MEDS: OXYCODONE/APAP 5/325 TAB PO PRN ×4 (00:29→20:28)
[2018-09-10] MEDS: ACETAMINOPHEN 325 MG TAB PO SCH ×3 (04:31→20:28)
[2018-09-10] MEDS: oxyCODONE CR 30 MG TAB PO SCH ×2 (04:31→16:28)
[2018-09-10] MEDS: METHOCARBAMOL 750 MG TAB PO PRN (06:49)
--- NOTE | 2018-09-10 08:09 | SOAPPROG ---
SOAP Progress Note Assessment/Plan: Assessment: #hyponatremia, suspected SIADH +/- HCTZ effect -Na correcting slowly up to 127 -CXR neg, TSH ok -chronic pain may be contributing to increased ADH secretion -should avoid thiazides, continue to encourage better nutrition -fluid restriction and salt tabs-- encouraged her to try and eat more solute -can add in lasix as outpt, no need at this point -I'd like to see her NA get a bit closer to 130 and ensure cleared by PT before d/c her-- not quite at this point today #chronic pain I discussed with caregiver 09/10/18 10:19 Subjective: Working with PT this am. Her caregiver was in room and hopeful to bring her home soon without need for rehab. Pt feeling better overall. Denies n/v, sob. Had questions about Na that I reviewed with her. Objective: Vital Signs Temp Pulse Resp BP Pulse Ox 36.6 C 88 18 119/86 H 93 09/10/18 04:00 09/10/18 04:00 09/10/18 04:00 09/10/18 04:00 09/10/18 04:00 Laboratory Results 09/10/18 04:30 09/09/18 09/10/18 09/11/18 05:59 05:59 05:59 Intake Total 1700 600 Output Total 1350 1575 Balance 350 -975 Physical Exam - Physical Exam General Appearance: alert, no apparent distress, other (sitting upright in chair ) EENT: other (mmm) Neck: supple Respiratory: lungs clear, normal breath sounds Cardiac/Chest: regular rate, rhythm Abdomen: normal bowel sounds, non-tender, soft Skin: warm/dry Extremities: other (trace LE edema bilat) Neuro/Psych: alert, oriented x 3 ICD10 Worksheet Patient Problems: Problems Problem Status Onset Hypokalemia Acute Hyponatremia Acute SIADH (syndrome of inappropriate ADH production) Acute Altered mental status Acute Dizziness Acute Left hip pain Acute chronic disease mgmt/transitional care Acute
[2018-09-10] MEDS: POLYETHYLENE GLYCOL 3350 17 GM PKT PO SCH (08:22)
[2018-09-10] MEDS: SODIUM CHLORIDE 1,000 MG TAB PO SCH ×3 (08:23→17:35)
[2018-09-10] MEDS: DULoxetine 30 MG CAP PO SCH (08:23)
[2018-09-10] MEDS: GABAPENTIN 100 MG CAP PO SCH ×3 (08:23→20:28)
[2018-09-10] MEDS: SENNOSIDES/DOCUSATE SODIUM TAB PO SCH ×2 (08:23→20:28)
[2018-09-10] MEDS: ASPIRIN 325 MG TAB PO SCH (08:23)
[2018-09-10] MEDS: LIDOCAINE 4%/MENTHOL 1% PATCH TD SCH (08:23)
[2018-09-10] MEDS: ENOXAPARIN 40 MG/0.4 ML SYR SC SCH (08:24)
[2018-09-10] MEDS: PATCH REMOVAL 1 EA PATCH TD SCH (08:43)
[2018-09-10] MEDS: FLUTICASONE NASAL 120 SPRAYS/16 GM MDI EACHNARE SCH (08:43)
--- NOTE | 2018-09-10 13:55 | HOSPPROG ---
Hospitalist Progress Note Assessment/Plan: Patient presented to the ER with confusion and noted to have a Na of 114. First encounter, chart reviewed. Met with the patient and her insurance healthcare consultant. *hyponatremia -Na on admit 114, now 127 -?SIADH vs use of diuretics -fluid restriction + salt tabs -possible chronic pain, opioids, hx of chronic subdural hematoma may have contributed * Hypokalemia - Replacement protocol in place - stable *Acute Metabolic Encephalopathy - Improving - Likely underlying cognitive impairment exacerbated by hyponatremia and chronic pain meds * Chronic Pain on continuous chronic narcotics -Restarted home pain medications including OxyContin and Percocet -has tried other multiple treatments without relief, gabapentin tid new and trial ibuprofen -Integrative therapy to see her -sees Indira Saldana in the OP setting *constipation -bowel protocol *plan: Integrative therapy nephrology recommends not resuming diurectic therapy at dc, to f/u with Dr Wilmar Jacobs. Subjective: Feeling a bit better today. Still a bit dizzy Objective: Vital Signs Temp Pulse Resp BP Pulse Ox 36.6 C 78 16 111/70 93 09/10/18 08:00 09/10/18 08:00 09/10/18 08:00 09/10/18 08:00 09/10/18 08:00 Laboratory Results 09/10/18 04:30 09/09/18 09/10/18 09/11/18 05:59 05:59 05:59 Intake Total 1700 600 250 Output Total 1350 1575 300 Balance 350 -975 -50 - Physical Exam Constitutional: no apparent distress, appears nourished, not in pain Eyes: PERRL, anicteric sclera, EOMI Ears, Nose, Mouth, Throat: moist mucous membranes, hearing normal, ears appear normal Cardiovascular: regular rate and rhythym, No JVD, No edema Respiratory: no respiratory distress, no rales or rhonchi, reduced air movement Gastrointestinal: normoactive bowel sounds, No tenderness, No ascites Skin: warm, normal color, No mottled Musculoskeletal: normal joint ROM, no joint effusions, generalized weakness Neurologic: AAOx3 Psychiatric: not anxious, not encephalopathic, poor memory ICD10 Worksheet Patient Problems: Problems Problem Status Onset Hypokalemia Acute SIADH (syndrome of inappropriate ADH production) Acute chronic disease mgmt/transitional care Acute Dizziness Acute Altered mental status Acute Left hip pain Acute Hyponatremia Acute
[2018-09-10] MEDS: ALTEPLASE 2 MG VIAL IVP PRN (17:32)
[2018-09-11 00:53] VITALS: BP 147/84
[2018-09-11] MEDS: OXYCODONE/APAP 5/325 TAB PO PRN ×3 (02:30→12:54)
[2018-09-11] MEDS: ACETAMINOPHEN 325 MG TAB PO SCH ×2 (04:47→12:47)
[2018-09-11] MEDS: oxyCODONE CR 30 MG TAB PO SCH (04:47)
--- NOTE | 2018-09-11 06:11 | SOAPPROG ---
SOAP Progress Note Assessment/Plan: Assessment: #hyponatremia, suspected SIADH +/- HCTZ effect -Na correcting slowly up to 130 today -CXR neg, TSH ok -chronic pain, prior subdural may be contributing to increased ADH secretion. Could consider further malignancy eval as outpt if repeat urine Na suggest persisently high ADH secretion -should avoid thiazides in future, continue to encourage better nutrition -Continue fluid restriction and salt tabs-- encouraged her to try and eat more solute-- we can liberalize this a bit more to be realistic for outpt (1.5L for ALL liquids by mouth would be reasonable) -can add in lasix as outpt, no need at this point -I think safe from our standpoint to d/c with need for labs next week. I would try to wean off the salt tabs if possible as outpt once sure eating better as these will contribute to chronic edema. For now, would send her on them with fluid restriction (1.5L) and check labs next week. If stable then, can start to wean down with close lab monitoring. Needs outpt f/u with us and we will arrange #chronic pain Melina Nelson MD [facility] pager [phone] 09/11/18 06:09 Subjective: Sleeping when I came by but easily arousable. Tells me feels sore all over and asking if can have pain meds now (RN reports just given). No sob, n/v. Na up to 130. Objective: Vital Signs Temp Pulse Resp BP Pulse Ox 36.8 C 75 16 147/84 H 94 09/11/18 00:00 09/11/18 00:00 09/11/18 00:00 09/11/18 00:00 09/11/18 00:00 Laboratory Results 09/11/18 04:45 09/10/18 09/11/18 09/12/18 05:59 05:59 05:59 Intake Total 800 550 Output Total 1575 600 Balance -775 -50 Physical Exam - Physical Exam General Appearance: other (sleeping but arouses easily, appears comfortable, not tachypneic) EENT: other (mmm) Respiratory: lungs clear Cardiac/Chest: regular rate, rhythm, other (no rub) Abdomen: normal bowel sounds, non-tender, soft Skin: warm/dry Extremities: other (+ankle edema bilat, warm) Neuro/Psych: other (follows commands, answers questions appropriately) ICD10 Worksheet Patient Problems: Problems Problem Status Onset Hypokalemia Acute Hyponatremia Acute SIADH (syndrome of inappropriate ADH production) Acute Altered mental status Acute Dizziness Acute Left hip pain Acute chronic disease mgmt/transitional care Acute
[2018-09-11] MEDS: SODIUM CHLORIDE 1,000 MG TAB PO SCH ×2 (07:42→12:55)
[2018-09-11] MEDS: DULoxetine 30 MG CAP PO SCH (09:40)
[2018-09-11] MEDS: SENNOSIDES/DOCUSATE SODIUM TAB PO SCH (09:41)
[2018-09-11] MEDS: POLYETHYLENE GLYCOL 3350 17 GM PKT PO SCH (09:41)
[2018-09-11] MEDS: ASPIRIN 325 MG TAB PO SCH (09:41)
[2018-09-11] MEDS: GABAPENTIN 100 MG CAP PO SCH (09:41)
[2018-09-11] MEDS: LIDOCAINE 4%/MENTHOL 1% PATCH TD SCH (09:41)
[2018-09-11] MEDS: ENOXAPARIN 40 MG/0.4 ML SYR SC SCH (09:42)
[2018-09-11] MEDS: PATCH REMOVAL 1 EA PATCH TD SCH (09:48)
[2018-09-11] MEDS: FLUTICASONE NASAL 120 SPRAYS/16 GM MDI EACHNARE SCH (09:48)
--- NOTE | 2018-09-11 10:39 | PDIAF ---
- Diagnosis Diagnosis: HYPONATREMIA Code Status: Full Code - Medication Management Discharge Medications: electronically signed and located in the Home Medication List. PICC Care - Routine: N/A - Orders Services needed: Home Care, Registered Nurse, Physical Therapy, Occupational Therapy Home Care Face to Face: I certify that this patient was under my care and that I had the required [id number] encounter meeting the encounter requirements on the discharge day. My findings support the fact that the patient is homebound as defined in Home Care Face to Face Continued: CMS Chapter 7 Medicare Benefits Manual 30.1.1 , The condition of the patient is such that there exists a normal inability to leave home and consequently, leaving home would require a considerable and taxing effort. Diet Recommendation: fluid restriction (use comment for amount) (1500) - Follow Up Care Current Providers and Referrals: Lucero Jacobs MD [Primary Care Provider] -
--- NOTE | 2018-09-11 11:39 | ASMTLACE ---
LACE Length of stay for Answers: 4-6 days current admission Acuity / Level of Answers: Yes Care: Did the patient have an inpatient admission? Comorbidities - select Answers: Opioid dependence all that apply / Chronic pain Other Notes: Cognitive impairment; H LD # of Emergency department Answers: 1-2 visits in the last 6 months Score: 13 Date Signed: 09/11/2018 11:38 AM Electronically Signed By:MP Berrios
--- NOTE | 2018-09-11 11:43 | ASDISCHSUM ---
Discharge Information Plan Status:Home with Home Health Medically Cleared to Leave:09/10/2018 Discharge Date:09/10/2018 CM D/C Disposition:Home Health Service ADT D/C Disposition:Home Health Service Projected Discharge Date:09/11/2018 11:00 AM Transportation at D/C:Family Discharge Delay Reason: Follow-Up Date:09/11/2018 11:00 AM Discharge Slot: Final Diagnosis: Placement Information Referral Type:*Home Health Care Services Referral ID:[id number] Provider Name:[facility] Address 1:[address] Address 2: City:[place] Selection Factors: State:[place] Patient Contact Information Contact Name:MELL Relationship: Address:[address] Work Phone: [facility]:[place] Alternate Phone: [facility]/Zip Code:[place] [address] Email: Financial Information Financial Class:Medicare Primary Plan Desc:MEDICARE INPATIENT Primary Plan Number:[id number] Secondary Plan Desc:EDUIN/ERENDIRA SUPPLEMENT Secondary Plan Number:[id number] Assessment Information LACE LACE Length of stay for Answers: 4-6 days current admission Acuity / Level of Answers: Yes Care: Did the patient have an inpatient admission? Comorbidities - select Answers: Opioid dependence all that apply / Chronic pain Other Notes: Cognitive impairment; H LD # of Emergency department Answers: 1-2 visits in the last 6 months Score: 13 Date Signed: 09/11/2018 11:38 AM Electronically Signed By:MP Berrios [facility] CM Progress Note CM Note CM Note Notes: Pt is a 77 yo F who presents with hyponatremia and hypochloremia. Pt has history of chronic pain, history of multiple back surgeries. CM met with pt and her caregiver (Sophia [phone]) and pt. Sophia is a caregiver for pt 6 days per week. Pt's is also supportive. PT pending eval. OT rec: home independently. CM to follow. Plan: TBD Date Signed: 09/07/2018 02:44 PM Electronically Signed By:CJ Stone [facility] CM Progress Note CM Note CM Note Notes: A family meeting has been scheduled for 12:00 noon tomorrow in 2N conference room to discuss and coordinate goals of care for the patient. CM will follow. Date Signed: 09/08/2018 01:59 PM Electronically Signed By:Ruby Lux LCSW [facility] CM Progress Note CM Note CM Note Notes: Pts case discussed w/ Marci Viramontes NP. Pt is a transfer from the ICU. Pts sodium is still low. CM met w/ pt, pts Robert and caregiver Sophia with [facility]. Sophia is a private duty caregiver through of [facility]. Sophia is w/ pt 4 days a week for 8 hrs and the 5th day she is w/ pt for half a day. Robert and Sophia are not interested in a goals meeting. They are curious about managing sodium level and managing edema. Therapies are recommending HC. They have used [facility] in the past and would like to use them again. Sophia would be the preferred contact (P#: [phone]) and if unable to reach her Bill would be the second contact (P#: [phone]). Pt is not current w/ a PCP at this time. They would like a referral made to Lucero Jacobs. CM made an appointment for pt to see Dr. Jacobs. CM to follow. Plan: [facility]; PT, OT, RN [facility] [address], [place] [address] Dr. Lucero Jacobs 09/15/18 at 11:30AM Please check in by 11:15AM, and bring photo ID, insurance card, co pay, list of all meds, and d/c paperwork to the appointment. Date Signed: 09/09/2018 10:23 AM Electronically Signed By:CJ Osborne Intervention Information
--- NOTE | 2018-09-11 20:25 | GDS ---
[f rep st] DISCHARGE SUMMARY DISCHARGE DIAGNOSES: 1. Hyponatremia. 2. Hypokalemia. 3. Acute metabolic encephalopathy. 4. Chronic pain on continuous narcotic. 5. Constipation. CONSULTATIONS: Nephrology. STUDIES AND PROCEDURES DONE: PICC line placement. PHYSICAL EXAMINATION: GENERAL: The patient is alert. VITAL SIGNS: Afebrile at 36.4, pulse is 90, respiratory rate 16, blood pressure is 147/84. She is saturating 92% on room air. I have seen and e valuated the patient on the day of discharge. HOSPITAL COURSE: The patient is a 77-year-old female brought to the hospital with complaints of conf usion. She was evaluated and diagnosed with: 1. Hyponatremia. At the time of admission, the patient's sodium was 114. Her sodium has now correc crow to 130. She is tolerating this well. She did receive a consultation from Nephrology during this hospitalization. Fluid restriction as well as salt tablets and discontinuation of her diuretics wer e used during this hospital course to assist in her hyponatremia. She will continue salt tablets and fluid restriction at the time of disposition. She will also not reinitiate any diuretics at the gamal e of discharge. 2. Hypokalemia. For this she received placement during this hospital course and is stable. 3. Acute metabolic encephalopathy. This has resolved in the setting of acute hyponatremia. 4. Chronic pain on continuous chronic narcotics. Her home medications have been continued. She rodger l see Dr. Indira Saldana, in the outpatient setting. 5. Constipation. This has resolved. DISPOSITION: She will be discharged home with home health care, physical therapy, occupational thera py, and RN. She does have a home caregiver, and her is very supportive. She will follow up with Dr. Lucero Jacobs in the outpatient setting with laboratory evaluations in 3 days. She will also follow up with [facility] in 1 week. DISCHARGE MEDICATIONS: Please refer to EMR form. The patient's chlorthalidone as well as Flexeril h ave been discontinued during this hospital course. I have written her a prescription for Neurontin a s well as Robaxin and salt tablets. TIME SPENT WITH PATIENT: I spent greater than 35 minutes in the care, coordination, and management o f patient's disposition. /[id number]/MODL
== END 2018-09-11 14:17 | disposition home health service (06) | DRG 640 ==
LOC: F2N 22:00 → F3E 09-08 16:53
PROVIDERS: ADMIT Internal Medicine; ATTEND Internal Medicine
PROC: 05H633Z Insertion of Infusion Device into Left Subclavian Vein, Percutaneous Approach (ICD-10-PCS; principal; 2018-09-07)
DX: E87.1 Hypo-osmolality and hyponatremia (principal); E87.6 Hypokalemia; G93.41 Metabolic encephalopathy; G89.29 Other chronic pain; K59.00 Constipation, unspecified; Z23 Encounter for immunization
CPT/HCPCS: 82435-PO; 82565-PO; 82947-PO; 84132-PO; 84295-PO; 84520-PO; 85014-ER; 96365; 96366; 97110-GP; 97116-GP; 97162-GP; 97166-GO; 97530-GO; 97530-GP; 97535-GO; C1751; G0008; J1170; J1650; J2060; J2405; J2997; J3480

== ENCOUNTER 2018-09-19 19:21 | Emergency (ER) | payer OTHER, MEDICARE ==
[2018-09-19 19:59] LABS: PLATELET COUNT 358 10^3/uL (150-400)
[2018-09-19] MEDS ORDERED: DEXAMETHASONE 10 MG/ML VIAL IVP ONE (20:38)
[2018-09-19] MEDS ORDERED: DIAZEPAM 5 MG/ML 1 ML SYR IVP ONE (20:39)
[2018-09-19] MEDS ORDERED: HYDROmorphONE/DILAUDID 2 MG/ML INJ IVP ONE (20:40)
[2018-09-19] MEDS ORDERED: DICYCLOMINE 10 MG CAP PO ONE (21:32)
[2018-09-19] MEDS ORDERED: LIDOCAINE 4%/MENTHOL 1% PATCH TD ONE (21:33)
--- NOTE | 2018-09-19 21:35 | EDPHY ---
H & P Stated Complaint: NECK PAIN, FOREHEAD PRESSURE, PAIN IN BACK, STOMACH PAIN Time Seen by Provider: 09/19/18 20:17 HPI/ROS: CHIEF COMPLAINT: Headache, stomach pain, my will provide more information HISTORY OF PRESENT ILLNESS: This is a 77-year-old female with a history of cervical and lumbar spinal fusions, as well as gradually increasing cognitive impairment, recently admitted with with significant hyponatremia, and discharged a week ago now presents with ongoing and worsening headache pain, pain at the base of her head, across her forehead, and abdominal pain. Patient reports a long history of a chronic headaches thought to be secondary to cervical spine issues, as well as recently developing generalized mild intermittent crampy abdominal pain. She has a chronic pain physician, Dr. Saldana, and was recently seen by primary care physician 4 days ago and noted to have a sodium of 130. Sodium was 130 when she was discharged from the hospital 1 week ago. Patient had had some issues with constipation after her hospital stay which was treated with magnesium citrate. No urinary complaints. No vomiting. No history of head trauma, no recent fevers or chills, cold or cough symptoms, no vomiting or diarrhea. No urinary complaints. REVIEW OF SYSTEMS: A comprehensive 10 system review of systems was reviewed and is otherwise negative aside from elements mentioned in the history of present illness and medical decision making. PAST MEDICAL HISTORY: Cervical lumbar spinal fusions, chronic pain medications including OxyContin and Percocet, SOCIAL HISTORY: Here with her who manages her medications. VITAL SIGNS Reviewed by me. GENERAL: Well-developed, well-nourished, lying with a wet washcloth across her forehead. Primary complaint is of headache pain as well as pain and the base of her skull and some abdominal discomfort. HEENT: Atraumatic. Eyes: No icterus, no injection. Mouth: moist mucous membranes. No erythema or lesions. Neck: Supple, no meningismus. LUNGS: Clear to auscultation bilaterally, no wheezes, rhonchi or rales. CARDIAC: Regular rate and rhythm, no rubs, murmurs or gallops. ABDOMEN: Soft, no tenderness on palpation. Nondistended, bowel sounds normal. BACK: No CVA tenderness. EXTREMITIES: No trauma. No edema. Range of motion is normal throughout. NEURO: Alert and oriented, grossly nonfocal. SKIN: Warm and dry, no rash. PSYCHIATRIC: Normal mentation, no agitation. - Personal History Current Tetanus Diphtheria and Acellular Pertussis (TDAP): Yes Tetanus Vaccine Date: 2013 - Medical/Surgical History Hx Asthma: No Hx Chronic Respiratory Disease: No Hx Diabetes: No Hx Cardiac Disease: No Hx Renal Disease: No Hx Cirrhosis: No Hx Alcoholism: No Hx HIV/AIDS: No Hx Splenectomy or Spleen Trauma: No Other PMH: neck fusion, rt hip replacement, back surg,back fusion, shunt removed from back spinal fluid leak, right breast cancer, R breast lumpectomy, thyroglossal cyst, appy, tonsilectomy, LOW SODIUM - Social History Smoking Status: Never smoked Constitutional: Initial Vital Signs Temperature (C) 37.0 C 09/19/18 19:26 Heart Rate 99 09/19/18 19:26 Respiratory Rate 18 09/19/18 19:26 Blood Pressure 161/78 H 09/19/18 19:26 O2 Sat (%) 95 09/19/18 19:26 O2 Delivery Mode Room Air Allergies/Adverse Reactions: ibuprofen [Ibuprofen] Allergy (Intermediate, Verified 09/06/18 15:41) MILD SWELLING OF HANDS FEET FACE Iodinated Contrast- Oral and IV Dye Allergy (Verified 09/06/18 15:41) tramadol Allergy (Verified 09/06/18 15:41) hallucinations BEE STINGS Allergy (Severe, Uncoded 03/04/18 13:34) Anaphylaxis Home Medications: Medication Instructions Recorded Ascorbic Acid [Vitamin C 500 mg 500 mg PO DAILY 06/10/17 (*)] Fluticasone Nasal [Flonase Nasal 2 sprays EACHNARE DAILY 06/10/17 [place]] Herbals/Supplements -Info Only 1 ea PO DAILY 06/10/17 Aspirin [Aspirin 325 mg (*)] 325 mg PO DAILY tab 06/24/17 Acetaminophen [Tylenol 325mg (*)] 650 mg PO Q6HRS PRN 09/06/18 Acetaminophen/ASA/Caffeine 1 each PO HS PRN 09/06/18 [Excedrin Tablet (*)] Bisacodyl [Dulcolax] 10 mg RC DAILY 09/06/18 DULoxetine [Cymbalta 30 MG (*)] 30 mg PO DAILY 09/06/18 oxyCODONE CR [Oxycontin] 30 mg PO DAILY@04,16 09/06/18 oxyCODONE/APAP 5/325 [Percocet 1 tab PO Q4H PRN 09/06/18 5/325 (*)] Gabapentin [Neurontin 100 MG (*)] 100 mg PO TID #90 cap 09/11/18 Ibuprofen [Motrin (*)] 400 mg PO Q6HRS PRN tab 09/11/18 Lidocaine 4%/Menthol 1% [Icy Hot 1 patch TD DAILY patch 09/11/18 Lidocaine/Menthol 4%/1% Patch (*)] Methocarbamol [Robaxin 750 mg (*)] 750 mg PO TID PRN #30 tab 09/11/18 Patch Removal 1 ea TD DAILY patch 09/11/18 Polyethylene Glycol 3350 [Miralax 17 gm PO DAILY pkt 09/11/18 17 gm (*)] Sennosides/Docusate Sodium 1 - 2 tab PO BID tab 09/11/18 [Senokot-S] Sodium Chloride [Salt Tablet] 1,000 mg PO TIDMEAL #90 tab 09/11/18 Dicyclomine [Bentyl 20 MG (*)] 20 mg PO QID PRN #30 tab 09/19/18 Medical Decision Making ED Course/Re-evaluation: IV was placed. Labs were sent. Patient's sodium is 137. The remainder of her electrolytes are largely unremarkable. Patient received Decadron for her headache pain as well as Valium. She did not receive Toradol given her ibuprofen allergy. On re-examination she reports that she is feeling improved with less pain at the base of her skull and decrease headache discomfort. She has had brief, intermittent episodes of a pinching, spasmy type pain in her abdomen. Patient received Bentyl for her abdominal discomfort. She was instructed to use omeprazole for possible gastritis or GERD. Patient's urinalysis does not show overt signs of infection. This will be sent for culture. Her does report that she had a catheter placed while she was in the hospital. Overall, the patient feels much improved. She would like to be discharged home. She was given lidocaine patch for her neck. She was reassured with the findings of a normal sodium. She will followup with her primary care physician as previously scheduled as well as follow-up with cognitive neuro psychiatrist as previously scheduled Differential Diagnosis: After history was obtained, and the physical exam performed, a differential for headache was considered including, but not limited to, migraine, medication withdrawal, electrolyte abnormalities, tension headache, viral syndrome. - Data Points Laboratory Results: Laboratory Results 09/19/18 19:40 09/19/18 19:40 09/19/18 09/19/18 09/19/18 20:34 19:40 19:40 WBC 7.86 10^3/uL 10^3/uL (3.80-9.50) RBC 4.40 10^6/uL 10^6/uL (4.18-5.33) Hgb 12.3 g/dL L g/dL (12.6-16.3) Hct 37.4 % L % (38.0-47.0) MCV 85.0 fL fL (81.5-99.8) MCH 28.0 pg pg (27.9-34.1) MCHC 32.9 g/dL g/dL (32.4-36.7) RDW 16.7 % H % (11.5-15.2) Plt Count 358 10^3/uL 10^3/uL (150-400) MPV 8.9 fL fL (8.7-11.7) Neut % (Auto) 80.8 % H % (39.3-74.2) Lymph % (Auto) 13.0 % L % (15.0-45.0) [place] % (Auto) 4.1 % L % (4.5-13.0) Eos % (Auto) 1.9 % % (0.6-7.6) Baso % (Auto) 0.1 % L % (0.3-1.7) Nucleat RBC Rel Count 0.0 % % (0.0-0.2) Absolute Neuts (auto) 6.35 10^3/uL 10^3/uL (1.70-6.50) Absolute Lymphs (auto) 1.02 10^3/uL 10^3/uL (1.00-3.00) Absolute Monos (auto) 0.32 10^3/uL 10^3/uL (0.30-0.80) Absolute Eos (auto) 0.15 10^3/uL 10^3/uL (0.03-0.40) Absolute Basos (auto) 0.01 10^3/uL L 10^3/uL (0.02-0.10) Absolute Nucleated RBC 0.00 10^3/uL 10^3/uL (0-0.01) Immature Gran % 0.1 % % (0.0-1.1) Immature Gran # 0.01 10^3/uL 10^3/uL (0.00-0.10) Sodium 137 mEq/L mEq/L (135-145) Potassium 3.9 mEq/L mEq/L (3.5-5.2) Chloride 101 mEq/L mEq/L (97-110) Carbon Dioxide 26 mEq/l mEq/l (22-31) Anion Gap 10 mEq/L mEq/L (6-14) BUN 14 mg/dL mg/dL (7-23) Creatinine 0.6 mg/dL mg/dL (0.6-1.0) Estimated GFR > 60 Glucose 101 mg/dL H mg/dL (70-100) Calcium 9.8 mg/dL mg/dL (8.5-10.4) Urine Color YELLOW Urine Appearance TURBID Urine pH 7.0 (5.0-7.5) Ur Specific [place] 1.013 (1.002-1.030) Urine Protein NEGATIVE (NEGATIVE) Urine Ketones NEGATIVE (NEGATIVE) Urine Blood 1+ H (NEGATIVE) Urine Nitrate NEGATIVE (NEGATIVE) Urine Bilirubin NEGATIVE (NEGATIVE) Urine Urobilinogen NEGATIVE EU EU (0.2-1.0) Ur Leukocyte Esterase 2+ H (NEGATIVE) Urine RBC 1-3 /hpf /hpf (0-3) Urine WBC 1-3 /hpf /hpf (0-3) Ur Epithelial Cells TRACE /lpf /lpf (NONE-1+) Urine Glucose NEGATIVE (NEGATIVE) Medications Given: Discontinued Medications Dexamethasone (Decadron Injection) 10 mg IVP EDNOW ONE Stop: 09/19/18 20:39 Last Admin: 09/19/18 20:54 Dose: 10 mg Diazepam (Valium) 5 mg IVP EDNOW ONE Stop: 09/19/18 20:40 Last Admin: 09/19/18 20:55 Dose: 5 mg Dicyclomine HCl (Bentyl) 20 mg PO EDNOW ONE Stop: 09/19/18 21:33 Last Admin: 09/19/18 21:49 Dose: 20 mg Hydromorphone HCl (Dilaudid) 1 mg IVP EDNOW ONE Stop: 09/19/18 20:41 Last Admin: 09/19/18 20:54 Dose: 1 mg Miscellaneous Medication (Icy Hot Lidocaine/Menthol 4%/1% Patch) 1 patch TD EDNOW ONE Stop: 09/19/18 21:34 Last Admin: 09/19/18 21:48 Dose: 1 patch Departure - Departure Disposition: Home, Routine, Self-Care Clinical Impression: Headache Qualifiers: Headache type: unspecified Headache chronicity pattern: chronic headache Intractability: not intractable Qualified Code(s): R51 - Headache Abdominal pain Qualifiers: Abdominal location: upper abdomen, unspecified Qualified Code(s): R10.10 - Upper abdominal pain, unspecified Condition: Good Instructions: Gastroesophageal Reflux Disease (ED), Acute Headache (ED) Additional Instructions: 1. Okay to use lidocaine patch on the neck to help with your headache pain. 2. For your abdominal pain, suggested you obtain [id number] omeprazole and take this as directed. 3. Your urine has been sent for culture although it does not appear to be infected on initial evaluation. 4. Please follow up with primary care physician as previously scheduled. 5. Please continue to use your medications as directed. Referrals: Lucero Jacobs MD [Primary Care Provider] - As per Instructions Prescriptions: Dicyclomine [Bentyl 20 MG (*)] 20 mg PO QID PRN #30 tab PRN Reason: abdominal pain
[2018-09-19 21:56] VITALS: BP 115/56
[2018-09-20] MEDS ORDERED: PATCH REMOVAL 1 EA PATCH TD SCH (21:00)
[2018-09-20] MEDS ORDERED: OXYCODONE/APAP 5/325 TAB ONE (23:51)
== END 2018-09-19 22:02 | disposition home or self-care (01) ==
DX: R51 Headache (principal); R10.10 Upper abdominal pain, unspecified; Z86.39 Personal history of other endocrine, nutritional and metabolic disease
CPT/HCPCS: 96374; 96375; 99284; J1100; J1170; J3360

== ENCOUNTER 2018-09-20 19:07 | Inpatient (IN) | payer OTHER, MEDICARE ==
[2018-09-20] MEDS ORDERED: DIAZEPAM 5 MG/ML 1 ML SYR IVP ONE (19:27)
--- NOTE | 2018-09-20 19:27 | EDPHY ---
H & P Stated Complaint: ACUTE ON CHRONIC BACK AND NECK PAIN Time Seen by Provider: 09/20/18 19:16 HPI/ROS: CHIEF COMPLAINT: Abdominal pain HISTORY OF PRESENT ILLNESS: 78-year-old female history of chronic cervical and lumbar back pain, chronic opiate dependence, recently admitted to the hospital with significant hyponatremia, seen the ER yesterday for complaints of headache , abdominal pain, discharged, returns by ambulance complaining of continued episodes of abdominal cramping described as diffuse, nonspecific 20 particular quadrant with 2 episodes of vomiting. Bowel movements have been normal. Passing gas as normal. No chest pain. No dyspnea. No trauma. No urinary abnormality. PRIMARY CARE PROVIDER: Dr. Indira Saldana REVIEW OF SYSTEMS: 10 systems reviewed and negative with the exception of the elements mentioned in the history of present illness PAST MEDICAL & SURGICAL HISTORY: Chronic cervical and lumbar back pain. Chronic opiate dependence. Appendectomy. SOCIAL HISTORY: [place]. PHYSICAL EXAM (Prior to examination, patient consented to physical exam, hands were washed and my usual and customary physical exam procedures followed) 1) GENERAL: Well-developed, well-nourished, alert and oriented. Appears nontoxic 2) HEAD: Normocephalic, atraumatic 3) HEENT: Pupils equal, round, reactive to light bilaterally. Sclera anicteric. Nasopharynx, oropharynx, clear, no lesions. Dry mucous membranes. 4) NECK: Full range of motion, no meningeal signs. 5) LUNGS: Clear auscultation bilaterally, no wheezes, no rhonchi, no retractions. 6) HEART: Regular rate and rhythm, no murmur, no heave, no gallop. 7) ABDOMEN: No guarding, tender to palpation left upper and left lower quadrant , negative McBurney's, negative Freeman's, negative Rovsing's, negative peritoneal sign, 8) MUSCULOSKELETAL: Moving all extremities, no focal areas of tenderness, no obvious trauma. No peripheral edema or discoloration. 9) BACK: No CVA tenderness, no midline vertebral tenderness, no fluctuance, no step-off, no obvious trauma, no visual or palpable abnormality. 10) SKIN: No rash, no petechiae. 11) Psychiatric: Patient is oriented X 3, there is no agitation. DIFFERENTIAL DIAGNOSIS: My differential diagnosis includes, but is not limited to, acute appendicitis, acute cholecystitis, bowel obstruction, acute pancreatitis, gastritis and urinary tract infection. The patient understands that this diagnosis is provisional and can never be 100% accurate. This is a partial list of diagnoses considered. These considerations are based on history , physical exam, past history and reassessment. - Personal History Current Tetanus Diphtheria and Acellular Pertussis (TDAP): Yes Tetanus Vaccine Date: 2013 - Medical/Surgical History Hx Asthma: No Hx Chronic Respiratory Disease: No Hx Diabetes: No Hx Cardiac Disease: No Hx Renal Disease: No Hx Cirrhosis: No Hx Alcoholism: No Hx HIV/AIDS: No Hx Splenectomy or Spleen Trauma: No Other PMH: neck fusion, rt hip replacement, back surg,back fusion, shunt removed from back spinal fluid leak, right breast cancer, R breast lumpectomy, thyroglossal cyst, appy, tonsilectomy, LOW SODIUM - Social History Smoking Status: Never smoked Constitutional: Initial Vital Signs Temperature (C) 37 C 09/20/18 19:07 Heart Rate 94 09/20/18 19:07 Respiratory Rate 16 09/20/18 19:07 Blood Pressure 141/80 H 09/20/18 19:07 O2 Sat (%) 91 L 09/20/18 19:07 O2 Delivery Mode Room Air Allergies/Adverse Reactions: ibuprofen [Ibuprofen] Allergy (Intermediate, Verified 09/06/18 15:41) MILD SWELLING OF HANDS FEET FACE Iodinated Contrast- Oral and IV Dye Allergy (Verified 09/06/18 15:41) tramadol Allergy (Verified 09/06/18 15:41) hallucinations BEE STINGS Allergy (Severe, Uncoded 03/04/18 13:34) Anaphylaxis Home Medications: Medication Instructions Recorded Ascorbic Acid [Vitamin C 500 mg 500 mg PO DAILY 06/10/17 (*)] Herbals/Supplements -Info Only 1 ea PO DAILY 06/10/17 oxyCODONE CR [Oxycontin] 30 mg PO DAILY@09/06/18 oxyCODONE/APAP 5/325 [Percocet 1 tab PO Q4H PRN 09/06/18 5/325 (*)] Gabapentin [Neurontin 100 MG (*)] 100 mg PO TID #90 cap 09/11/18 Methocarbamol [Robaxin 750 mg (*)] 750 mg PO TID PRN #30 tab 09/11/18 Sodium Chloride [Salt Tablet] 1,000 mg PO TIDMEAL #90 tab 09/11/18 Medical Decision Making - Diagnostics Imaging Results: Imaging Impressions Abdomen CT 09/20/18 20:24 Impression: 1. Moderate biliary ductal dilatation with the common bile duct measuring up to 17 mm in diameter. If indicated, consider correlation with right upper quadrant ultrasound. 2. Posterior lateral abdominal wall hernia on the left containing descending colon just below the splenic flexure without associated complication. 3. Incidental fatty infiltration of the pancreas. 4. Fluid-filled loops of mid to distal small bowel suggestive of ileus or enteritis without evidence of focal obstruction. Findings discussed with Kendra Banuelos PAC at 21:26 hour, 09/20/2018. Abdomen Ultrasound 09/20/18 21:29 Impression: 1. Moderate biliary ductal dilatation without evidence of choledocholithiasis. If indicated, consider correlation with MRCP or ERCP to evaluate possible etiology of biliary ductal dilatation 2. Tenderness over the gallbladder without gallstones. ED Course/Re-evaluation: 7:26 p.m.: I reviewed the patient's old medical records including her emergency department visit last night. She is focally tender to palpation the abdomen, unclear if this is chronic or acute pathology. Will obtain diagnostic studies and imaging studies. Her sodium last evening was normal. Will hold on IV fluids at this time until sodium results are returned. Care of patient under supervision of secondary supervising physician Dr Casey Damico with whom I discussed case. 9:30 p.m.: CT imaging interpreted by radiologist shows, among other things, dilated biliary system. Will obtain dedicated right upper quadrant ultrasound. 11:07 p.m.: Consultation with hospitalist Dr. Sy who will admit patient - Data Points Laboratory Results: Laboratory Results 09/20/18 20:06 09/20/18 20:06 09/20/18 09/20/18 09/20/18 21:00 20:12 20:06 WBC RBC Hgb POC Hgb 13.3 gm/dL gm/dL (12.6-16.3) Hct POC Hct 39 % % (38-47) MCV MCH MCHC RDW Plt Count MPV Neut % (Auto) Lymph % (Auto) [place] % (Auto) Eos % (Auto) Baso % (Auto) Nucleat RBC Rel Count Absolute Neuts (auto) Absolute Lymphs (auto) Absolute Monos (auto) Absolute Eos (auto) Absolute Basos (auto) Absolute Nucleated RBC Immature Gran % Immature Gran # POC Sodium 137 mEq/L mEq/L (135-145) Sodium 133 mEq/L L mEq/L (135-145) POC Potassium 4.0 mEq/L mEq/L (3.3-5.0) Potassium 4.0 mEq/L mEq/L (3.5-5.2) POC Chloride 100 mEq/L mEq/L (97-110) Chloride 99 mEq/L mEq/L (97-110) Carbon Dioxide 24 mEq/l mEq/l (22-31) POC Total CO2 28 mEq/L mEq/L (22-31) Anion Gap 10 mEq/L mEq/L (6-14) POC BUN 11 mg/dL mg/dL (7-23) BUN 13 mg/dL mg/dL (7-23) Creatinine 0.5 mg/dL L mg/dL (0.6-1.0) POC Creatinine 0.5 mg/dL L mg/dL (0.6-1.0) Estimated GFR > 60 Glucose 112 mg/dL H mg/dL (70-100) POC Glucose 111 mg/dL H mg/dL (70-100) Calcium 9.4 mg/dL mg/dL (8.5-10.4) Total Bilirubin 0.5 mg/dL mg/dL (0.1-1.4) Conjugated Bilirubin 0.5 mg/dL mg/dL (0.0-0.5) Unconjugated Bilirubin 0.0 mg/dL mg/dL (0.0-1.1) AST 30 IU/L IU/L (14-46) ALT 32 IU/L IU/L (9-52) Alkaline Phosphatase 59 IU/L IU/L (38-126) Total Protein 6.7 g/dL g/dL (6.3-8.2) Albumin 4.1 g/dL g/dL (3.5-5.0) Lipase 39 IU/L IU/L (23-300) Urine Color YELLOW Urine Appearance CLEAR Urine pH 7.0 (5.0-7.5) Ur Specific [place] 1.034 H (1.002-1.030) Urine Protein NEGATIVE (NEGATIVE) Urine Ketones NEGATIVE (NEGATIVE) Urine Blood 1+ H (NEGATIVE) Urine Nitrate NEGATIVE (NEGATIVE) Urine Bilirubin NEGATIVE (NEGATIVE) Urine Urobilinogen NEGATIVE EU EU (0.2-1.0) Ur Leukocyte Esterase 3+ H (NEGATIVE) Urine RBC NONE SEEN /hpf /hpf (0-3) Urine WBC 50-182 /hpf H /hpf (0-3) Ur Epithelial Cells TRACE /lpf /lpf (NONE-1+) Urine Mucus TRACE /lpf /lpf (NONE-1+) Urine Glucose NEGATIVE (NEGATIVE) 09/20/18 20:06 WBC 8.38 10^3/uL 10^3/uL (3.80-9.50) RBC 4.14 10^6/uL L 10^6/uL (4.18-5.33) Hgb 11.8 g/dL L g/dL (12.6-16.3) POC Hgb Hct 36.2 % L % (38.0-47.0) POC Hct MCV 87.4 fL fL (81.5-99.8) MCH 28.5 pg pg (27.9-34.1) MCHC 32.6 g/dL g/dL (32.4-36.7) RDW 16.9 % H % (11.5-15.2) Plt Count 352 10^3/uL 10^3/uL (150-400) MPV 9.1 fL fL (8.7-11.7) Neut % (Auto) 71.4 % % (39.3-74.2) Lymph % (Auto) 18.7 % % (15.0-45.0) [place] % (Auto) 9.1 % % (4.5-13.0) Eos % (Auto) 0.2 % L % (0.6-7.6) Baso % (Auto) 0.1 % L % (0.3-1.7) Nucleat RBC Rel Count 0.0 % % (0.0-0.2) Absolute Neuts (auto) 5.98 10^3/uL 10^3/uL (1.70-6.50) Absolute Lymphs (auto) 1.57 10^3/uL 10^3/uL (1.00-3.00) Absolute Monos (auto) 0.76 10^3/uL 10^3/uL (0.30-0.80) Absolute Eos (auto) 0.02 10^3/uL L 10^3/uL (0.03-0.40) Absolute Basos (auto) 0.01 10^3/uL L 10^3/uL (0.02-0.10) Absolute Nucleated RBC 0.00 10^3/uL 10^3/uL (0-0.01) Immature Gran % 0.5 % % (0.0-1.1) Immature Gran # 0.04 10^3/uL 10^3/uL (0.00-0.10) POC Sodium Sodium POC Potassium Potassium POC Chloride Chloride Carbon Dioxide POC Total CO2 Anion Gap POC BUN BUN Creatinine POC Creatinine Estimated GFR Glucose POC Glucose Calcium Total Bilirubin Conjugated Bilirubin Unconjugated Bilirubin AST ALT Alkaline Phosphatase Total Protein Albumin Lipase Urine Color Urine Appearance Urine pH Ur Specific [place] Urine Protein Urine Ketones Urine Blood Urine Nitrate Urine Bilirubin Urine Urobilinogen Ur Leukocyte Esterase Urine RBC Urine WBC Ur Epithelial Cells Urine Mucus Urine Glucose Medications Given: Discontinued Medications Diazepam (Valium) 2.5 mg IVP EDNOW ONE Stop: 09/20/18 19:28 Last Admin: 09/20/18 20:18 Dose: 2.5 mg Ceftriaxone Sodium/Dextrose (Rocephin 1 Gm (Premix)) 50 mls @ 100 mls/hr IV EDNOW ONE PRN Reason: Protocol Stop: 09/20/18 22:39 Last Admin: 09/20/18 22:25 Dose: 50 mls Point of Care Test Results: Chemistry 09/20/18 20:12 POC Sodium 137 mEq/L mEq/L (135-145) POC Potassium 4.0 mEq/L mEq/L (3.3-5.0) POC Chloride 100 mEq/L mEq/L (97-110) POC Total CO2 28 mEq/L mEq/L (22-31) POC BUN 11 mg/dL mg/dL (7-23) POC Creatinine 0.5 mg/dL L mg/dL (0.6-1.0) POC Glucose 111 mg/dL H mg/dL (70-100) ISTAT H&H 09/20/18 20:12 POC Hgb 13.3 gm/dL gm/dL (12.6-16.3) POC Hct 39 % % (38-47) Departure - Departure Disposition: [facility] Inpatient Acute Clinical Impression: Urinary tract infection Qualifiers: Urinary tract infection type: acute cystitis Hematuria presence: with hematuria Qualified Code(s): N30.01 - Acute cystitis with hematuria Condition: Fair
[2018-09-20 20:17] LABS: PLATELET COUNT 352 10^3/uL (150-400)
[2018-09-20] MEDS ORDERED: IOPAMIDOL (ISOVUE-300) 100 ML BTL ONE (20:30)
[2018-09-20] MEDS ORDERED: ONDANSETRON DISINTEGRATING 4 MG TAB PO PRN (23:07)
[2018-09-20] MEDS ORDERED: ONDANSETRON 4 MG/2 ML VIAL IVP PRN (23:07)
--- NOTE | 2018-09-20 23:46 | PDGENHP ---
History and Physical - Chief Complaint Abdominal pain, vomiting - History of Present Illness 78 yo F w/ hx of chronic pain presents with abdominal pain and vomiting. She was seen in the ED for epi-gastric abdominal pain yesterday evening and discharged home after unremarkable work-up. Today she developed frequent vomiting so she came to the ED for evaluation. She denies suspicious food intake or antibiotic therapy but she was hospitalized earlier this month for hyponatremia. Evaluation in the ED notable for likely enteritis, which would explain symptoms well. Work-up also revealed dilated CBD without cholecystitis or choledocholithiasis. This will require further investigation. At the time of my evaluation the patient is comfortable without any complaints after medication. Case discussed with ED BOO Banuelos; records reviewed and summarized above. History Information - Allergies/Home Medication List Allergies/Adverse Reactions: ibuprofen [Ibuprofen] Allergy (Intermediate, Verified 09/06/18 15:41) MILD SWELLING OF HANDS FEET FACE Iodinated Contrast- Oral and IV Dye Allergy (Verified 09/06/18 15:41) tramadol Allergy (Verified 09/06/18 15:41) hallucinations BEE STINGS Allergy (Severe, Uncoded 03/04/18 13:34) Anaphylaxis Home Medications: Ascorbic Acid [Vitamin C 500 mg (*)] 500 mg PO DAILY 06/10/17 [Last Taken ] Herbals/Supplements -Info Only 1 ea PO DAILY 06/10/17 [Last Taken 09/20/18] oxyCODONE CR [Oxycontin] 30 mg PO DAILY@10,22 09/06/18 [Last Taken 09/20/18 10: 00] oxyCODONE/APAP 5/325 [Percocet 5/325 (*)] 1 tab PO Q4H PRN 09/06/18 [Last Taken 09/20/18] I have personally reviewed and updated: family history, medical history - Past Medical History cancer (Breast) Additional medical history: Chronic pain - Surgical History Reports: appendectomy, spinal surgery Additional surgical history: DANA - Family History Positive for: cancer Additional family history: CHF - Social History Smoking Status: Never smoked Review of Systems Review of Systems: ROS: 10pt was reviewed & negative except for what was stated in HPI & below Physical Exam Physical Exam: Temp Pulse Resp BP Pulse Ox 37 C 73 16 130/69 H 97 09/20/18 19:07 09/20/18 21:00 09/20/18 21:00 09/20/18 21:00 09/20/18 21:00 Constitutional: no apparent distress, not in pain Eyes: PERRL, EOMI Ears, Nose, Mouth, Throat: moist mucous membranes, no oral mucosal ulcers Cardiovascular: regular rate and rhythym, no murmur, rub, or gallop Respiratory: no respiratory distress, clear to auscultation Gastrointestinal: normoactive bowel sounds, soft, non-tender abdomen, No ramos' s sign, No guarding, No rebound, No distension Skin: warm, normal color Musculoskeletal: full muscle strength, no muscle tenderness Neurologic: AAOx3, CN II-XII Intact Psychiatric: interacting appropriately, not anxious Lab Data & Imaging Review 09/20/18 20:06 09/20/18 20:06 WBC 8.38 10^3/uL (3.80-9.50) 09/20/18 20:06 RBC 4.14 10^6/uL (4.18-5.33) L 09/20/18 20:06 Hgb 11.8 g/dL (12.6-16.3) L 09/20/18 20:06 POC Hgb 13.3 gm/dL (12.6-16.3) 09/20/18 20:12 Hct 36.2 % (38.0-47.0) L 09/20/18 20:06 POC Hct 39 % (38-47) 09/20/18 20:12 MCV 87.4 fL (81.5-99.8) 09/20/18 20:06 MCH 28.5 pg (27.9-34.1) 09/20/18 20:06 MCHC 32.6 g/dL (32.4-36.7) 09/20/18 20:06 RDW 16.9 % (11.5-15.2) H 09/20/18 20:06 Plt Count 352 10^3/uL (150-400) 09/20/18 20:06 MPV 9.1 fL (8.7-11.7) 09/20/18 20:06 Neut % (Auto) 71.4 % (39.3-74.2) 09/20/18 20:06 Lymph % (Auto) 18.7 % (15.0-45.0) 09/20/18 20:06 Bradley % (Auto) 9.1 % (4.5-13.0) 09/20/18 20:06 Eos % (Auto) 0.2 % (0.6-7.6) L 09/20/18 20:06 Baso % (Auto) 0.1 % (0.3-1.7) L 09/20/18 20:06 Nucleat RBC Rel Count 0.0 % (0.0-0.2) 09/20/18 20:06 Absolute Neuts (auto) 5.98 10^3/uL (1.70-6.50) 09/20/18 20:06 Absolute Lymphs (auto) 1.57 10^3/uL (1.00-3.00) 09/20/18 20:06 Absolute Monos (auto) 0.76 10^3/uL (0.30-0.80) 09/20/18 20:06 Absolute Eos (auto) 0.02 10^3/uL (0.03-0.40) L 09/20/18 20:06 Absolute Basos (auto) 0.01 10^3/uL (0.02-0.10) L 09/20/18 20:06 Absolute Nucleated RBC 0.00 10^3/uL (0-0.01) 09/20/18 20:06 Immature Gran % 0.5 % (0.0-1.1) 09/20/18 20:06 Immature Gran # 0.04 10^3/uL (0.00-0.10) 09/20/18 20:06 POC Sodium 137 mEq/L (135-145) 09/20/18 20:12 Sodium 133 mEq/L (135-145) L 09/20/18 20:06 POC Potassium 4.0 mEq/L (3.3-5.0) 09/20/18 20:12 Potassium 4.0 mEq/L (3.5-5.2) 09/20/18 20:06 POC Chloride 100 mEq/L (97-110) 09/20/18 20:12 Chloride 99 mEq/L (97-110) 09/20/18 20:06 Carbon Dioxide 24 mEq/l (22-31) 09/20/18 20:06 POC Total CO2 28 mEq/L (22-31) 09/20/18 20:12 Anion Gap 10 mEq/L (6-14) 09/20/18 20:06 POC BUN 11 mg/dL (7-23) 09/20/18 20:12 BUN 13 mg/dL (7-23) 09/20/18 20:06 Creatinine 0.5 mg/dL (0.6-1.0) L 09/20/18 20:06 POC Creatinine 0.5 mg/dL (0.6-1.0) L 09/20/18 20:12 Estimated GFR > 60 09/20/18 20:06 Glucose 112 mg/dL (70-100) H 09/20/18 20:06 POC Glucose 111 mg/dL (70-100) H 09/20/18 20:12 Calcium 9.4 mg/dL (8.5-10.4) 09/20/18 20:06 Total Bilirubin 0.5 mg/dL (0.1-1.4) 09/20/18 20:06 Conjugated Bilirubin 0.5 mg/dL (0.0-0.5) 09/20/18 20:06 Unconjugated Bilirubin 0.0 mg/dL (0.0-1.1) 09/20/18 20:06 AST 30 IU/L (14-46) 09/20/18 20:06 ALT 32 IU/L (9-52) 09/20/18 20:06 Alkaline Phosphatase 59 IU/L (38-126) 09/20/18 20:06 Total Protein 6.7 g/dL (6.3-8.2) 09/20/18 20:06 Albumin 4.1 g/dL (3.5-5.0) 09/20/18 20:06 Lipase 39 IU/L (23-300) 09/20/18 20:06 Urine Color YELLOW 09/20/18 21:00 Urine Appearance CLEAR 09/20/18 21:00 Urine pH 7.0 (5.0-7.5) 09/20/18 21:00 Ur Specific Gaines 1.034 (1.002-1.030) H 09/20/18 21:00 Urine Protein NEGATIVE (NEGATIVE) 09/20/18 21:00 Urine Ketones NEGATIVE (NEGATIVE) 09/20/18 21:00 Urine Blood 1+ (NEGATIVE) H 09/20/18 21:00 Urine Nitrate NEGATIVE (NEGATIVE) 09/20/18 21:00 Urine Bilirubin NEGATIVE (NEGATIVE) 09/20/18 21:00 Urine Urobilinogen NEGATIVE EU (0.2-1.0) 09/20/18 21:00 Ur Leukocyte Esterase 3+ (NEGATIVE) H 09/20/18 21:00 Urine RBC NONE SEEN /hpf (0-3) 09/20/18 21:00 Urine WBC 50-182 /hpf (0-3) H 09/20/18 21:00 Ur Epithelial Cells TRACE /lpf (NONE-1+) 09/20/18 21:00 Urine Mucus TRACE /lpf (NONE-1+) 09/20/18 21:00 Urine Glucose NEGATIVE (NEGATIVE) 09/20/18 21:00 Imaging Review: Imaging Impressions Abdomen CT 09/20/18 20:24 Impression: 1. Moderate biliary ductal dilatation with the common bile duct measuring up to 17 mm in diameter. If indicated, consider correlation with right upper quadrant ultrasound. 2. Posterior lateral abdominal wall hernia on the left containing descending colon just below the splenic flexure without associated complication. 3. Incidental fatty infiltration of the pancreas. 4. Fluid-filled loops of mid to distal small bowel suggestive of ileus or enteritis without evidence of focal obstruction. Findings discussed with Kendra Banuelos PAC at 21:26 hour, 09/20/2018. Abdomen Ultrasound 09/20/18 21:29 Impression: 1. Moderate biliary ductal dilatation without evidence of choledocholithiasis. If indicated, consider correlation with MRCP or ERCP to evaluate possible etiology of biliary ductal dilatation 2. Tenderness over the gallbladder without gallstones. Assessment & Plan Assessment: 78 yo F w/ chronic pain presents with likely enteritis and dilated CBD of unclear etiology. Plan: 1. Enteritis - Seen on CT; this likely explains epi-gastric abdominal pain followed by profuse vomiting. The patient was admitted here earlier this month so has had significant exposure. She currently denies diarrhea. - Admit for observation - Anti-emetics PRN - Encourage PO intake - GI PCR if diarrhea develops 2. Dilated CBD - RUQ U/S demonstrates moderate biliary ductal dilatation with the common bile duct measuring up to 17 mm in diameter. No choledocholithiasis or cholecystitis was noted. LFTs WNL. - Will evaluate further with MRCP - Monitor CMP 3. Asymptomatic bacteriuria - UA with pyuria but patient denies urinary symptoms. - S/p CTX x1 in the ED - Urine culture pending - Will observe off of further antibiotics 4. Chronic pain - Continue home medications Diet - Regular, NPO @ [place] for MRCP Code - Full Ppx - LMWH Dispo - Admit under observation status
[2018-09-20] MEDS: OXYCODONE/APAP 5/325 TAB PO PRN (23:54)
[2018-09-21] MEDS: METHOCARBAMOL 750 MG TAB PO PRN ×3 (00:27→16:32)
[2018-09-21] MEDS: GABAPENTIN 100 MG CAP PO SCH ×4 (00:27→21:07)
[2018-09-21] MEDS ORDERED: oxyCODONE CR 30 MG TAB PO SCH (00:30)
[2018-09-21] MEDS ORDERED: DIAZEPAM 2 MG TAB PO PRN (02:00)
[2018-09-21 05:18] LABS: PLATELET COUNT 311 10^3/uL (150-400)
[2018-09-21] MEDS: OXYCODONE/APAP 5/325 TAB PO PRN ×3 (05:34→17:56)
[2018-09-21] MEDS: ACETAMINOPHEN 325 MG TAB PO PRN ×2 (06:08→19:50)
[2018-09-21] MEDS: SODIUM CHLORIDE 1,000 MG TAB PO SCH ×3 (07:51→17:56)
[2018-09-21] MEDS ORDERED: Herbals/Supplements -Info Only PO SCH (09:00)
[2018-09-21] MEDS: oxyCODONE CR 30 MG TAB PO SCH ×2 (10:31→21:07)
[2018-09-21] MEDS: ASCORBIC ACID 500 MG TAB PO SCH (10:32)
[2018-09-21] MEDS: ENOXAPARIN 40 MG/0.4 ML SYR SC SCH (10:32)
--- NOTE | 2018-09-21 13:09 | ASMTCMCOM ---
CM Note CM Note Notes: Patient plan of care reviewed in am rounds. Patient is a 78 year old female with chronic back pain admitted via ED with c/o abdominal pain and en=mesis x2. [place] . Diagnostic studies pending. CM to follow for needs. Plan; Likely return to home no needs when medically cleared for discharge. Date Signed: 09/21/2018 01:08 PM Electronically Signed By:Nelda Kunz RN
--- NOTE | 2018-09-21 14:01 | HOSPPROG ---
Hospitalist Progress Note Assessment/Plan: 78yo F with chronic pain on opioids here with acute abdominal pain and vomiting. #CBD stricture: Seen on MRCP. LFTs ok, no s/s of cholangitis - D/w Dr Herbert, will likely need EUS +/- ERCP #Epigastric pain, vomiting: Improved. ? enteritis vs r/t above - Pain control, anti-emetics, IVF #Asymptomatic bacteriuria - Monitor off abx #Chronic pain with continuous opioid dependency - Continue home medications #H/o hyponatremia: R/t SIADH, thiazide use. Now normalized. #H/o metabolic encephalopathy: Likely r/t high dose opioids. She is slightly somnolent but arousable here. #Ventral hernia: Noted on CT. Containing some loops of bowel but no complication per radiologist. VTE ppx: LMWH Code: full Diet: NPO at midnight Dispo: Switch to inpatient Subjective: Pain almost resolved with IV pain meds and hydration. No further emesis, no diarrhea, no fevers. Objective: Vital Signs Temp Pulse Resp BP Pulse Ox 36.6 C 74 14 117/70 94 09/21/18 12:00 09/21/18 12:00 09/21/18 12:00 09/21/18 12:00 09/21/18 12:00 Laboratory Results 09/21/18 04:50 09/21/18 04:50 09/20/18 09/21/18 09/22/18 05:59 05:59 05:59 Intake Total 150 Output Total 600 Balance -450 - Physical Exam Constitutional: no apparent distress, other (somnolent) Eyes: PERRL, anicteric sclera Ears, Nose, Mouth, Throat: moist mucous membranes, hearing normal, ears appear normal, no oral mucosal ulcers Cardiovascular: regular rate and rhythym, no murmur, rub, or gallop Respiratory: no respiratory distress, no rales or rhonchi, clear to auscultation Gastrointestinal: normoactive bowel sounds, soft, non-tender abdomen, no palpable masses, distension Genitourinary: no bladder fullness, no bladder tenderness, no renal bruits Skin: no rashes or abrasions, no fluctuance, no induration Musculoskeletal: full muscle strength, no muscle tenderness, normal joint ROM Neurologic: AAOx3 Psychiatric: other (somnolent) ICD10 Worksheet Patient Problems: Problems Problem Status Onset Urinary tract infection Acute Abdominal pain Acute Altered mental status Acute Dizziness Acute Headache Acute Hypokalemia Acute Hyponatremia Acute Left hip pain Acute SIADH (syndrome of inappropriate ADH production) Acute chronic disease mgmt/transitional care Acute
[2018-09-21] MEDS: NS 1,000 ML IV SCH (19:52)
[2018-09-22] MEDS: OXYCODONE/APAP 5/325 TAB PO PRN ×3 (03:50→16:35)
--- NOTE | 2018-09-22 06:11 | PDMN ---
Medical Necessity Medical necessity: Change to IP, as of 09/21/18, per MD & MCG [id number]; los >2 mn for ongoing management of epigastric pain, vomiting & asymptomatic bacteriuria r /t common bile duct stricture vs enteritis; requiring further monitoring, GI consult w/likely EUS+/-ERCP, NPO status, IVFs, IV antiemetics & pain management ; hx metabolic encephalopathy
[2018-09-22] MEDS: ACETAMINOPHEN 325 MG TAB PO PRN (06:15)
[2018-09-22] MEDS: NS 1,000 ML IV SCH (06:16)
[2018-09-22] MEDS: ENOXAPARIN 40 MG/0.4 ML SYR SC SCH (10:12)
[2018-09-22] MEDS: GABAPENTIN 100 MG CAP PO SCH ×3 (10:12→21:45)
[2018-09-22] MEDS: ASCORBIC ACID 500 MG TAB PO SCH (10:12)
[2018-09-22] MEDS: oxyCODONE CR 30 MG TAB PO SCH ×2 (10:12→21:45)
[2018-09-22] MEDS: SODIUM CHLORIDE 1,000 MG TAB PO SCH ×2 (19:53→19:54)
[2018-09-22] MEDS: METHOCARBAMOL 750 MG TAB PO PRN (21:45)
[2018-09-23] MEDS: OXYCODONE/APAP 5/325 TAB PO PRN ×3 (03:42→15:35)
[2018-09-23] MEDS: METHOCARBAMOL 750 MG TAB PO PRN ×2 (05:00→16:32)
[2018-09-23] MEDS: SODIUM CHLORIDE 1,000 MG TAB PO SCH ×2 (08:51→11:32)
--- NOTE | 2018-09-23 09:05 | SOAPPROG ---
SOAP Progress Note Assessment/Plan: Assessment:Plan: Computer down yesterday -see full dictated consult - pt seen yesterday 1) abml imaging - has CBD dilation and poss CBD stricture and poss panc divisum on MRCP. Has had dilated CBD on imaging for > 10 years but more so now. Will need outpt evaluation 2) epi pain - improved, prob from some mild gastric irritation 3) dipso - prb home today 09/23/18 09:02 Subjective: CC- abnl imaging, epi pain pt feeling well no sig pain tolerating PO Objective: Vital Signs Temp Pulse Resp BP Pulse Ox 36.9 C 74 18 138/73 H 97 09/23/18 07:34 09/23/18 07:34 09/23/18 07:34 09/23/18 07:34 09/23/18 07:34 Laboratory Results 09/23/18 08:37 09/23/18 08:37 09/22/18 09/23/18 09/24/18 05:59 05:59 05:59 Intake Total 700 2150 Output Total 2600 5950 Balance -1900 -3800 Alert CTA S1S +BS, soft nt ICD10 Worksheet Patient Problems: Problems Problem Status Onset Urinary tract infection Acute Abdominal pain Acute Altered mental status Acute Dizziness Acute Headache Acute Hypokalemia Acute Hyponatremia Acute Left hip pain Acute SIADH (syndrome of inappropriate ADH production) Acute chronic disease mgmt/transitional care Acute
[2018-09-23] MEDS: oxyCODONE CR 30 MG TAB PO SCH (09:15)
[2018-09-23] MEDS: GABAPENTIN 100 MG CAP PO SCH ×2 (09:15→16:26)
[2018-09-23] MEDS: ENOXAPARIN 40 MG/0.4 ML SYR SC SCH (09:15)
[2018-09-23] MEDS: ASCORBIC ACID 500 MG TAB PO SCH (09:15)
[2018-09-23] MEDS ORDERED: POLYETHYLENE GLYCOL 3350 17 GM PKT PO PRN (10:44)
[2018-09-23] MEDS ORDERED: BISACODYL 10 MG SUPP PR PRN (10:44)
[2018-09-23] MEDS ORDERED: MAGNESIUM HYDROXIDE 30 ML UDCUP PO PRN (10:44)
[2018-09-23] MEDS ORDERED: LACTULOSE 20 GM/30 ML UDCUP PO PRN (10:44)
--- NOTE | 2018-09-23 12:17 | ASMTCMCOM ---
CM Note CM Note Notes: Patient plan of care reviewed in am rounds. She will likely be medically cleared for discharge to home later today with outpatient GI follow up. She will resume her current HHC with [facility]. BCM available should other needs arise. Plan: Dc with [facility] services. Date Signed: 09/23/2018 12:17 PM Electronically Signed By:Nelda Kunz RN
--- NOTE | 2018-09-23 14:55 | GDS ---
[f rep st] DISCHARGE SUMMARY ALL DIAGNOSES: 1. Nausea, vomiting and diarrhea; suspected gastroenteritis. 2. Biliary ductal stricture. 3. Chronic pain, on continuous narcotics. 4. Mild cognitive impairment. 5. Abdominal wall hernia. 6. Chronic hyponatremia. 7. Asymptomatic bacteriuria. HOSPITAL COURSE: This is a 78-year-old man who presented with abdominal pain and vomiting. I suspec t that this is likely due to an enteritis. Also noted was a common bile duct stricture which was hayden luated with both CT ultrasound as well as MRCP. She did have some biliary ductal dilation. GI was c onsulted, they confirmed that the strictures has been present for at least 10 years. Regardless, it should be evaluated. In terms of her presenting symptoms, these have resolved and she is eating a full meal. She will follow up with Dr. Zepeda to consider an ERCP and EUS to further evaluate the stricture. Give n that her symptoms improved and she has normal LFTs, this is very unlikely to be the etiology of her presentation. She plans to go to the [facility] at the end of this month, to further evaluate her chronic carole n, as well as to see if there are any unifying diagnoses that should be considered for her situation. I discussed this with Dr. Jacobs, her primary care physician. DISPOSITION: She is discharged home with 24 x 7 caregivers in stable condition. FOLLOWUP: 1. Otoniel Zepeda MD, for consideration of ERCP/EUS. 2. Lucero Jacobs MD, within 1-2 weeks. Should recheck her labs at that visit. BILLING: I spent more than 30 minutes on the day of discharge coordinating care. /[id number]/MODL
--- NOTE | 2018-09-23 14:57 | PDIAF ---
- Diagnosis Diagnosis: Enteritis Code Status: Full Code - Medication Management Discharge Medications: electronically signed and located in the Home Medication List. - Orders Services needed: Home Care, Registered Nurse, Physical Therapy Home Care Face to Face: I certify that this patient was under my care and that I had the required [id number] encounter meeting the encounter requirements on the discharge day. My findings support the fact that the patient is homebound as defined in Home Care Face to Face Continued: CMS Chapter 7 Medicare Benefits Manual 30.1.1 , The condition of the patient is such that there exists a normal inability to leave home and consequently, leaving home would require a considerable and taxing effort. - Follow Up Care Current Providers and Referrals: Otoniel Zepeda MD [Medical Doctor] - (follow up for ERCP and EUS) Lucero Jacobs MD [Primary Care Provider] - As per Instructions
--- NOTE | 2018-09-23 15:05 | ASMTLACE ---
LACE Length of stay for Answers: 2 days current admission Comorbidities - select Answers: Any tumor (including all that apply lymphoma or leukemia) Opioid dependence / Chronic pain # of Emergency department Answers: 3-4 visits in the last 6 months Score: 11 Date Signed: 09/23/2018 03:05 PM Electronically Signed By:Nelda Kunz RN
--- NOTE | 2018-09-23 15:20 | ASMTDCNOTE ---
Case Management Discharge Discharge Order Complete? Answers: Yes Patient to Obtain Answers: via Family Medications Transportation Arranged Answers: Family/Friends Faxed Final Orders Answers: Yes Agency/Facility Transfer Answers: Yes Report Printed & Faxed to Receiving Agency Family Notified Answers: Yes Discharge Comments Notes: Medically cleared for discharge to home with resumption of HHC via [facility] RN and PT. Date Signed: 09/23/2018 03:20 PM Electronically Signed By:Nelda Kunz RN
[2018-09-23 15:59] VITALS: BP 124/73
[2018-09-23] MEDS ORDERED: SENNOSIDES/DOCUSATE SODIUM TAB PO SCH (21:00)
--- NOTE | 2018-09-23 21:33 | GCON ---
[f rep st] CONSULTATION DATE OF CONSULTATION: 09/22/2018 I have been asked by Dr. Franklin and Dr. Carlos to see the patient in consultation for a chief comp laint of abnormal imaging and some abdominal pain. The patient is a pleasant 78-year-old female with some dementia who has past medical history significant for chronic pain on long-term narcotic medica tions and a history of breast cancer. She was seen in the emergency room on the for abdominal p ain and was discharged home after unremarkable workup, but she returned with significant frequent vom iting and was admitted. She does not have any fevers, chills, sweats. She did have a history of hyp onatremia earlier this month when she was hospitalized at [facility]. She had an imagi ng study that showed possible enteritis as well as a dilated common bile duct without evidence of dawn creatic mass. Because of the abnormality in the imaging study, I was contacted for evaluation. By th e time I am seeing her, epigastric pain is already improving, almost resolved and she is tolerating p .o. intake. She has no more nausea or vomiting. I am now here to evaluate her abnormal imaging stud y and resolving pain. PAST MEDICAL HISTORY: Breast cancer, chronic pain, history of hyponatremia. PAST SURGICAL HISTORY: Appendectomy, spinal surgery, [facility]. FAMILY HISTORY: Breast cancer, congestive heart failure. SOCIAL HISTORY: She does not smoke. She drinks alcohol infrequently. MEDICATIONS: At home, included vitamin C, oxycodone CR and Percocet. In the hospital, her medication s were written for Tylenol p.r.n., vitamin C 500 mg daily, Dulcolax p.r.n., Valium p.r.n. once for MR Dunn, Lovenox 40 mg subcu, Neurontin 100 mg three times daily, Cephulac p.r.n., milk of magnesia p.r.n., Percocet p.r.n., OxyContin 300 mg twice daily, MiraLAX p.r.n. ALLERGIES: Ibuprofen causes swelling of the hands, IV contrast allergy, tramadol causes hallucinatio ns and bee stings cause anaphylaxis. REVIEW OF SYSTEMS: A complete review of systems was performed and negative other than in the HPI. PHYSICAL EXAM: GENERAL: Well-developed, well-nourished elderly female sitting in her bed in no acut e distress. Her road advisor and family members are present. VITAL SIGNS: Blood pressure 131/67, pulse 67, respirations 18, she is 92% on room air, temperature 36.9. EYES: Anicteric. STEPHANIE, EOMI. MOUTH : No lesions. Moist membranes. NECK: Supple. Full range of motion. No JVD. BACK: No spine ten derness. No CVA tenderness. LUNGS: Clear to auscultation. CARDIAC: S1, S2. Regular rate and rhyt hm. No murmurs, rubs or gallops appreciated. ABDOMEN: Soft with mild epigastric tenderness. No he patomegaly. Bowel sounds are normal in pitch and frequency. EXTREMITIES: No cyanosis, clubbing or edema. NEUROLOGIC: Cranial nerves intact, nonfocal. SKIN: No stigmata of advanced liver disease, no r ashes. LABORATORY DATA: From the , WBC 8.05, hemoglobin 11.3, hematocrit 35.4, platelet count 311. Fro m the , sodium 136, potassium 3.6, chloride 102, bicarb 24, BUN 10, creatinine 0.5, glucose 112, calcium 8.8, bilirubin 0.2, AST 25, ALT 30, alkaline phosphatase 65, albumin 3.3. From the , lip ase is 39. From September 20, an abdominal CAT scan reveals moderate biliary ductal dilatation with a com mon bile duct measuring up to 17 mm in diameter, posterior lateral abdominal hernia in the left conta ining descending colon just below the splenic flexure without associated complication. An ultrasound performed after the CT scan revealed moderate biliary dilatation without evidence of choledocholithi asis and if indicated, consider MRCP. There is tenderness of the gallbladder without gallstones. e MRI, MRCP performed on September 20 revealed no common bile duct stone, smooth tapering of the distal c ommon bile duct suggests common bile duct stricture. No discernible pancreatic head mass on the nonc ontrast imaging. Mild pancreatic fibrosis. Normal pancreatic duct drains to the minor papilla, poss ibility of pancreatic divisum. Mildly dilated gallbladder. No intraluminal stones or sludge. ASSESSMENT: 1. Abnormal imaging. 2. Epigastric pain, which is improving. 3. Probable enteritis seen on CT, which can explain her profuse vomiting and epigastric discomfort. 4. Chronic pain. RECOMMENDATIONS: 1. Will discuss with my partner regarding EUS, ERCP for this longstanding common bile duct stricture in a patient with longstanding narcotics. 2. Treatment of her other medical issues as per hospitalist. 3. As long as her abdominal pain improves and she has no significant nausea and vomiting, I think deep cole could be discharged from the hospital with outpatient followup. Thank you for allowing me to participate in the patient's healthcare. Do not hesitate to call with an y questions. /[id number]/MODL
== END 2018-09-23 17:07 | disposition home or self-care (01) | DRG 391 ==
LOC: EDUNIT# → F1N 23:43 → OBSVTOIN 09-21 17:09
PROVIDERS: ADMIT Student in an Organized Health Care Education/Training Program; ATTEND Student in an Organized Health Care Education/Training Program
DX: K52.9 Noninfective gastroenteritis and colitis, unspecified (principal); K83.1 Obstruction of bile duct; G31.84 Mild cognitive impairment of uncertain or unknown etiology; E87.1 Hypo-osmolality and hyponatremia; R82.71 Bacteriuria; K46.9 Unspecified abdominal hernia without obstruction or gangrene; G89.29 Other chronic pain; F11.20 Opioid dependence, uncomplicated; Z98.1 Arthrodesis status; Z96.641 Presence of right artificial hip joint; Z85.3 Personal history of malignant neoplasm of breast
CPT/HCPCS: 82435-PO; 82565-PO; 82947-PO; 84132-PO; 84295-PO; 84520-PO; 85014-ER; 96365; 96374; 97116-GP; 97162-GP; 97530-GP; G0378; J0696; J1100; J1170; J1650; J2405; J3360; Q9967

== ENCOUNTER → 2018-12-23 | Outpatient (CLI) | payer OTHER, MEDICARE | LOC: FIMAGING 12:47 ==